=== PATIENT | female | born 1945 | race Caucasian/White ===

== ENCOUNTER 2016-10-02 04:06 | Inpatient (IN) ==
[2016-10-02] MEDS ORDERED: MAGNESIUM SULF RIDER 2 GM in PREMIX 1 EACH IV STA (04:11)
[2016-10-02] MEDS ORDERED: LEVOFLOXACIN INJ 750 MG in PREMIX 1 EACH IV STA (04:11)
[2016-10-02] MEDS ORDERED: methylPREDNISolone SOD SUC 125 MG/2 ML VIAL IV STA (04:11)
--- NOTE | 2016-10-02 04:18 | Emergency Department Note ---
Arrival - Arrival Chief Complaint: Fever ED Nursing Triage Note: C/O Fever for 24 hours and cough x 5 days. Family called EMS because pt seemed to be having trouble breathing. EMS reports that O2 sats were in the 70's upon their arrival- EMS has pt on NRB; Pt has history of COPD Mode of Arrival: Stretcher Limitations: No Limitations Source: Patient Time Seen by Provider: 10/02/16 04:11 - History of Present Illness HPI Narrative: This 71-year-old white female chronic lung patient presents with history per family of a dry cough for the last 5 days with increasing dyspnea with onset of fevers in the last 24 hours. EMS was called this morning because the patient was having difficulty breathing per the family and on arrival of EMS the patient had O2 sats in the 70 percentile range. Patient is alert and oriented 3 but because of dyspnea is a poor historian at this point time. She did present with an elevated fever to the ER with a temperature of 102.4. Currently on flush nonrebreather she is respiring comfortably. Onset (ago): day(s) (Patient presents 5 days post onset of symptoms) Date of Last Menstrual Period: PM Allergies/Adverse Reactions: Allergies Allergy/AdvReac Type Severity Reaction Status Date / Time Penicillins Allergy RASH Verified 07/17/16 21:13 phenobarbital Allergy RASH Verified 07/17/16 21:13 Home Medications: Home Medications Medication Instructions Recorded Confirmed Type ALPRAZolam [Xanax] 0.5 mg PO TID PRN 11/29/14 07/19/16 History Allopurinol [Zyloprim] 300 mg PO BEDTIME PRN 11/29/14 07/19/16 History Carisoprodol [Soma] 350 mg PO TID PRN 11/29/14 07/19/16 History Glimepiride [Amaryl] 4 mg PO DAILY W/BREAKFAST 11/29/14 07/19/16 History metFORMIN [Glucophage] 500 mg PO BID 11/29/14 07/19/16 History Carbidopa/Levodopa Cr 25-100 1 tablet PO BEDTIME 04/15/15 07/19/16 History [Sinemet Cr 25-100] Citalopram [CeleXA] 40 mg PO BEDTIME 04/15/15 07/19/16 History Ondansetron Tab [Zofran Tab] 4 mg PO Q4H PRN 04/15/15 07/19/16 History Potassium Bicarbonate/Cit AC 10 meq PO DAILY PRN 04/15/15 07/19/16 History [Effer-K 10 Meq Tablet Eff] Albuterol Inhaler [Proventil 1 puff INH Q6H PRN #1 inhaler 06/08/15 07/19/16 Rx Inhaler] Albuterol Neb [Proventil Neb] 2.5 mg RESP TX RT Q4H PRN #100 02/24/16 07/19/16 Rx nebulization solution Budesonide/Formoterol 80-4.5 1 puff INH BID 07/19/16 07/19/16 History [Symbicort 80-4.5] Cyanocobalamin (Vitamin B-12) 1,000 mcg IM DIRECTED 07/19/16 07/19/16 History [Vitamin B-12] Estradiol [Estradiol Tab] 0.5 mg PO BEDTIME 07/19/16 07/19/16 History Fesoterodine Fumarate [Toviaz] 8 mg PO DAILY 07/19/16 07/19/16 History Oxycodone HCl/Acetaminophen 1 each PO QID PRN 07/19/16 07/19/16 History [Percocet 10-325 mg Tablet] Levofloxacin Tab [Levaquin Tab] 750 mg PO DAILY #5 tablet 07/20/16 Rx guaiFENesin/DM ER 600-30 [Mucinex 1 tablet PO BID PRN #10 tablet 07/20/16 Rx Dm 600-30 MG] predniSONE [Prednisone] 40 mg PO DAILY 5 Days 07/20/16 Rx Review of System - Review of System 12 point system: reviewed and no additional remarkable complaints except as stated - Review of System Constitutional: Present: as per HPI Respiratory: Present: as per HPI Medical,Surgical,& Family Hx - Medical History Cardio: History of: Hypertension Psychological: History of: Anxiety Disorders No history of: Behavior Problems, Bipolar Disorder, Depression, Psychiatric/ Substance Abuse Tx, Schizophrenia, Violent Behavior, Psychiatric Problems Neurology: No history of: Seizures HEENT: History of: Ear Problem (hard of hearing), Eye Problem (cataract surgery) No history of: Dental Problems Endocrine: History of: Diabetes Mellitus (NIDDM) No history of: Adrenal Disease, Diabetes Mellitus (IDDM), Thyroid Disorder, Endocrine Cancer, Endocrine Problems Rheumatology: History of;: Gout Respiratory: History of: Asthma, COPD, Obstructive Sleep Apnea, Pneumonia Genitourinary: History of: Bladder Problem (incontient episodes), Recurring Urinary Tract Infections Gastrointestinal: History of: GERD, Hemorrhoids No history of: Gastrointestinal Bleed, Liver Problems, GI Problems Musculoskeletal: History of: Back/Neck Problems (chronic back pain), Musculoskeletal Problems (arthritis) No history of: Amputation Hematology: No history of: Anemia, Blood Transfusion Reaction, Bleeding Problems, Clotting Problems, Sickle Cell Disease, Hematologic Cancer, Blood Disorders Other: No history of: Anesthesia Reactions, Eczema, HIV - Surgical History Cardiac Surgeries: Patient Denies: Femoral-Popliteal Bypass Graft, Cardiac Catheterization, Cardiac Surgery, Carotid Endarterectomy, Internal Defibrillator, Vascular Access Devices Thoracic Surgeries: Patient denies;: Kidney (Renal Surgery), Lithotripsy, Nephrectomy, Organ Transplant, Lobectomy Neurologic Surgeries: Patient denies: Neurologic Surgery HEENT Surgeries: Surgical HX of: Eye Surgery (retinal surgery) Patient denies: Carotid Endarterectomy, Thyroid Surgery, Tonsilectomy & Adenoidectomy Abdominal Surgeries: Surgical HX of: Abdominal Surgery, Appendectomy, Cholecystectomy, Colonoscopy, EGD Patient denies: Gastric Bypass Surgery, Hernia Repair, Splenectomy Reproductive Surgeries: Surgical HX of;: Hysterectomy Patient denies;: Cystoscopy, Genitourinary Surgery Orthopedic Surgeries: Surgical HX of;: Orthopedic Surgery (rotator cuff, carpal tunnel release), Spinal Surgery (lumbar disc surgery) Patient denies;: Implanted Devices, Total Hip Replacement, Total Knee Replacement - Family History Family History: Reports;: Family Cancer (sister,brother), Family Diabetes ( daughter), Family Heart Disease (mother), Family Stroke (son) - Social History Smoking Status: Unknown if ever smoked Frequency of Alcohol Use: None Type of Drug Use: None Exam Physical Examination: GENERAL: Obese white female in no acute distress. HEENT: Normocephalic. No trauma. Moist mucous membranes. EOMI. PERRLA. ENT NML NECK: Supple. No adenopathy. No JVD CARDIAC: Regular. No murmurs. Heart rate 100 CHEST: Expiratory wheezes. No respiratory distress. O2 sat 100% ABDOMEN: Soft. Nontender. Active bowel sounds. EXTREMITIES: No trauma. Normal ROM. No pedal edema. SKIN: No diaphoresis. No rash. NEURO: Alert. Oriented 3 but lethargic. Motor, sensory, vibratory intact. No focal deficits. Vital Signs: Vital Signs Temperature 102.4 F H 10/02/16 04:06 Pulse Rate 105 H 10/02/16 04:36 Respiratory Rate 26 H 10/02/16 04:36 Blood Pressure 176/75 10/02/16 04:06 O2 Sat by Pulse Oximetry 99 10/02/16 04:36 Course - Reevaluation(s) Reevaluation #1: Advised patient and family of the need for hospitalization. - Consultations Consultation #1: I have discussed with the hospitalist service who will admit for further evaluation treatment. Results - Labs CBC & BMP: 10/02/16 04:34 10/02/16 04:34 Labs: I have reviewed the laboratory noted low hematocrit as well as expected elevation of blood sugar and also the notable elevated BnP. - Impressions EKG: Sinus tachycardia at 100. Normal NC interval and QRS duration. Nonspecific ST changes. No acute injury pattern noted. - Diagnostic Findings Procedure: Chest x-ray: image reviewed by me, report reviewed by me ( Cardiomegaly with right lower lobe infiltrate) Disposition Clinical Impression: Congestive heart failure, Right lower lobe pneumonia, O2 dependent COPD Case discussed with: patient, patient's family Condition: Guarded Time of Disposition: 05:39
[2016-10-02] MEDS ORDERED: ALBUTEROL/IPRATROPIUM 3 ML NEB RESP TX STA (04:27)
[2016-10-02] MEDS ORDERED: ALBUTEROL 2.5 MG/3 ML NEB RESP TX SCH (04:30)
[2016-10-02 04:49] LABS: Basophils # 0.1 10*3/uL (0.0-0.2); Basophils % 0.6 % (0.0-0.8); Eosinophils # 0.1 10*3/uL (0.0-0.87); Eosinophils % 1.1 % (0.00-10.9); Hematocrit 33.9 VOL% (35.7-47.0); Hemoglobin 11.1 GM/DL (12.0-16.0); Lymphocytes # 1.2 10*3/uL (1.4-4.0); Lymphocytes % 11.6 % (21.3-54.2); Mean Corpuscular HGB Conc 32.7 GM/DL (32-36); Mean Corpuscular Hemoglobin 28 PG (27-34); Mean Corpuscular Volume 86.3 FL (87-102); Mean Platelet Volume 9.7 FL (9.6-12.0); Monocytes # 0.9 10*3/uL (0.11-0.8); Monocytes % 8.1 % (1.7-12.7); Neutrophils # 8.1 10*3/uL (1.4-7.4); Neutrophils % 77.6 % (38.7-73.9); Platelet Count 205 T/CUMM (130-400); Red Blood Count 3.93 MC/CUMM (3.8-5.5); Red Cell Distribution Width 15.1 % (9.3-17.3); White Blood Count 10.5 T/CUMM (4-12)
[2016-10-02 04:59] LABS: INR 1.1; PT Patient Result 11.8 SECS; Partial Thromboplastin Time 32.1 SECS (0-40)
[2016-10-02] MEDS ORDERED: methylPREDNISolone SOD SUC 125 MG/2 ML VIAL ONE (05:33)
[2016-10-02] MEDS ORDERED: TERBUTALINE 1 MG/1 ML VIAL SUBCUT ONE (05:33)
[2016-10-02] MEDS ORDERED: LEVOFLOXACIN INJ 150 ML IV ONE (05:33)
[2016-10-02 05:34] LABS: Alanine Aminotransferase 16 U/L (13-56); Albumin 3.2 G/DL (3.4-5.0); Alkaline Phosphatase 39 U/L (45-117); Aspartate Amino Transferase 14 U/L (0-37); Blood Urea Nitrogen 13 MG/DL (7-18); Glucose 227 MG/DL (74-106); Osmolality,Calculated 281.7 MOS/KG (273-304); Sodium 138 MMOL/L (136-145); Total Protein 5.8 G/DL (6.4-8.3); Troponin I Only < 0.015 NG/ML (0.00-0.045)
[2016-10-02] MEDS ORDERED: MAGNESIUM SULF RIDER 50 ML IV ONE (05:34)
[2016-10-02] MEDS ORDERED: FUROSEMIDE 40 MG/4 ML VIAL IV STA (05:36)
[2016-10-02] MEDS: TERBUTALINE 1 MG/1 ML VIAL SUBCUT SCH ×2 (05:42→06:15)
[2016-10-02] MEDS ORDERED: GLUCAGON 1 MG VIAL IM PRN ×2 (06:05)
[2016-10-02] MEDS ORDERED: ACETAMINOPHEN 325 MG TABLET PO PRN (06:05)
[2016-10-02] MEDS ORDERED: DEXTROSE 50% 25 GM/50 ML VIAL IV PRN ×2 (06:05)
[2016-10-02] MEDS ORDERED: ALBUTEROL 2.5 MG/3 ML NEB RESP TX PRN ×2 (06:05→16:21)
[2016-10-02] MEDS ORDERED: ONDANSETRON 4 MG/2 ML VIAL IV PRN (06:05)
--- NOTE | 2016-10-02 06:14 | Hospitalist History & Physical ---
Assessment and Plan (1) Fever Status: Acute Current Visit: No (2) Pneumonia Status: Acute Current Visit: No Qualifiers: (3) Chronic narcotic use Status: Acute Current Visit: No (4) COPD exacerbation Status: Acute Current Visit: No (5) Oxygen dependent Status: Acute Current Visit: No (6) Diabetes mellitus Status: Chronic Current Visit: No (7) Right lower lobe pneumonia Status: Acute Assessment and plan: Our plan for this patient will be admission to our service. Will we will schedule antibiotics. Will schedule breathing treatments. Once home meds are known will continue those as appropriate. Will consult Dr. Frank for his assistance in helping with this patient. Will give some lower doses IV steroids Current Visit: No History of Present Illness Chief complaint: Shortness of breath History of present illness: Ms. Foster is a 71 year old female with past medical history significant for diabetes gout COPD chronic kidney problems fibromyalgia presents with shortness of breath. Patient seem like she was sleeping more at home a little confused. She been running some fever for couple of days. Family got concerned and called EMS. Patient was brought up here. It became apparent that patient has pneumonia. I was consulted to admit her. She sees Dr. Frank in clinic. Home Medications Medication Instructions Recorded Confirmed Type ALPRAZolam [Xanax] 0.5 mg PO TID PRN 11/29/14 07/19/16 History Allopurinol [Zyloprim] 300 mg PO BEDTIME PRN 11/29/14 07/19/16 History Carisoprodol [Soma] 350 mg PO TID PRN 11/29/14 07/19/16 History Glimepiride [Amaryl] 4 mg PO DAILY W/BREAKFAST 11/29/14 07/19/16 History metFORMIN [Glucophage] 500 mg PO BID 11/29/14 07/19/16 History Carbidopa/Levodopa Cr 25-100 1 tablet PO BEDTIME 04/15/15 07/19/16 History [Sinemet Cr 25-100] Citalopram [CeleXA] 40 mg PO BEDTIME 04/15/15 07/19/16 History Ondansetron Tab [Zofran Tab] 4 mg PO Q4H PRN 04/15/15 07/19/16 History Potassium Bicarbonate/Cit AC 10 meq PO DAILY PRN 04/15/15 07/19/16 History [Effer-K 10 Meq Tablet Eff] Albuterol Inhaler [Proventil 1 puff INH Q6H PRN #1 inhaler 06/08/15 07/19/16 Rx Inhaler] Albuterol Neb [Proventil Neb] 2.5 mg RESP TX RT Q4H PRN #100 02/24/16 07/19/16 Rx nebulization solution Budesonide/Formoterol 80-4.5 1 puff INH BID 07/19/16 07/19/16 History [Symbicort 80-4.5] Cyanocobalamin (Vitamin B-12) 1,000 mcg IM DIRECTED 07/19/16 07/19/16 History [Vitamin B-12] Estradiol [Estradiol Tab] 0.5 mg PO BEDTIME 07/19/16 07/19/16 History Fesoterodine Fumarate [Toviaz] 8 mg PO DAILY 07/19/16 07/19/16 History Oxycodone HCl/Acetaminophen 1 each PO QID PRN 07/19/16 07/19/16 History [Percocet 10-325 mg Tablet] Levofloxacin Tab [Levaquin Tab] 750 mg PO DAILY #5 tablet 07/20/16 Rx guaiFENesin/DM ER 600-30 [Mucinex 1 tablet PO BID PRN #10 tablet 07/20/16 Rx Dm 600-30 MG] predniSONE [Prednisone] 40 mg PO DAILY 5 Days 07/20/16 Rx Allergies Allergy/AdvReac Type Severity Reaction Status Date / Time Penicillins Allergy RASH Verified 07/17/16 21:13 phenobarbital Allergy RASH Verified 07/17/16 21:13 Medical,Surgical,& Family Hx - Medical History Cardio: History of: Hypertension Psychological: History of: Anxiety Disorders No history of: Behavior Problems, Bipolar Disorder, Depression, Psychiatric/ Substance Abuse Tx, Schizophrenia, Violent Behavior, Psychiatric Problems Neurology: No history of: Seizures HEENT: History of: Ear Problem (hard of hearing), Eye Problem (cataract surgery) No history of: Dental Problems Endocrine: History of: Diabetes Mellitus (NIDDM) No history of: Adrenal Disease, Diabetes Mellitus (IDDM), Thyroid Disorder, Endocrine Cancer, Endocrine Problems Rheumatology: History of;: Gout Respiratory: History of: Asthma, COPD, Obstructive Sleep Apnea, Pneumonia Genitourinary: History of: Bladder Problem (incontient episodes), Recurring Urinary Tract Infections Gastrointestinal: History of: GERD, Hemorrhoids No history of: Gastrointestinal Bleed, Liver Problems, GI Problems Musculoskeletal: History of: Back/Neck Problems (chronic back pain), Musculoskeletal Problems (arthritis) No history of: Amputation Hematology: No history of: Anemia, Blood Transfusion Reaction, Bleeding Problems, Clotting Problems, Sickle Cell Disease, Hematologic Cancer, Blood Disorders Other: No history of: Anesthesia Reactions, Eczema, HIV - Surgical History Cardiac Surgeries: Patient Denies: Femoral-Popliteal Bypass Graft, Cardiac Catheterization, Cardiac Surgery, Carotid Endarterectomy, Internal Defibrillator, Vascular Access Devices Thoracic Surgeries: Patient denies;: Kidney (Renal Surgery), Lithotripsy, Nephrectomy, Organ Transplant, Lobectomy Neurologic Surgeries: Patient denies: Neurologic Surgery HEENT Surgeries: Surgical HX of: Eye Surgery (retinal surgery) Patient denies: Carotid Endarterectomy, Thyroid Surgery, Tonsilectomy & Adenoidectomy Abdominal Surgeries: Surgical HX of: Abdominal Surgery, Appendectomy, Cholecystectomy, Colonoscopy, EGD Patient denies: Gastric Bypass Surgery, Hernia Repair, Splenectomy Reproductive Surgeries: Surgical HX of;: Hysterectomy Patient denies;: Cystoscopy, Genitourinary Surgery Orthopedic Surgeries: Surgical HX of;: Orthopedic Surgery (rotator cuff, carpal tunnel release), Spinal Surgery (lumbar disc surgery) Patient denies;: Implanted Devices, Total Hip Replacement, Total Knee Replacement - Family History Family History: Reports;: Family Cancer (sister,brother), Family Diabetes ( daughter), Family Heart Disease (mother), Family Stroke (son) - Social History Smoking Status: Unknown if ever smoked Frequency of Alcohol Use: None Type of Drug Use: None 12 point system: reviewed and no additional remarkable complaints except as stated Exam - Constitutional Vitals: Period Temp Pulse Resp BP Sys/Melendez Pulse Ox Last 24 Hr 102.4 F 102-105 24-32 176/75 98-100 General appearance: morbidly obese - Head Head exam: Present: normal inspection - Eye Eye exam: Present: EOMI Pupils: Present: LELIA - ENT ENT exam: Present: normal exam - Neck Neck exam: Present: normal inspection - Respiratory Respiratory exam: Present: wheezes - Cardiovascular Cardiovascular exam: Present: regular rate and rhythm - GI/Abdominal GI/Abdominal exam: Present: normal bowel sounds - Extremities Exam Extremities exam: Present: normal inspection - Back Exam Back exam: Present: normal inspection - Neurological Exam Neurological exam: Present: alert, oriented X3 - Psychiatric Psychiatric exam: Present: normal affect Results - Labs CBC & BMP: 10/02/16 04:34 10/02/16 04:34
[2016-10-02] MEDS ORDERED: FUROSEMIDE 100 MG/10 ML VIAL ONE (06:48)
[2016-10-02 07:00] LABS: Apearance,Urine CLEAR (Clear); Bilirubin,Urine Negative (Negative); Blood, Urine Negative (Negative); Glucose,Urine (UA) 50 mg/dL (Negative); Ketones,Urine Negative (Negative); Mucus,Urine Occasional /LPF (Occasional); Nitrite,Urine Negative (Negative); Protein,Urine 30 MG/DL; RBC,Urine <1 /HPF (0-4); Squamous Epithelial Cell,Urine Occasional /HPF (0-10); Urine Color Yellow (Yellow); Urine Specific Gravity 1.016 (1.001-1.035); Urine Urobilinogen < 2.0 EU/DL (0.2-1.0); WBC,Urine 1 /HPF (0-6)
[2016-10-02 07:21] LABS: Barbiturates Screen,Urine Negative (Negative); Benzodiazepines Screen,Urine Negative (Negative); Cannabinoid Screen,Urine Negative (Negative); Opiate Screen,Urine Positive (Negative); Phencyclidine Screen,Urine Negative (Negative)
[2016-10-02] MEDS: ALBUTEROL/IPRATROPIUM 3 ML NEB RESP TX SCH ×3 (07:37→19:05)
--- NOTE | 2016-10-02 07:41 | XRay Report ---
Referring Physician: Jose Alfredo Nunn Exam: XR chest 1V portable Date: October 02, 2016 at 4:16 AM Reason: Shortness of breath Comparison: Chest 2 views July 20, 2016 Findings: The cardiac silhouette is upper normal in size, and there is prominent calcified plaque at the aortic arch. There are scattered opacities within both lower lung zones. This likely represents atelectasis, but there could also be mild pulmonary edema or pneumonia. No pneumothorax is identified, but there may be minimal left pleural fluid. No acute osseous process is seen. Note is made of chronic deformity of the clavicles, which could be related to previous surgery and/or trauma. There are also remote left rib fractures. Impression: There are scattered opacities within both lower lung zones. This likely represents atelectasis, but there could also be mild pulmonary edema or pneumonia. PROCEDURE INTERPRETED AT [facility] DEPARTMENT OF RADIOLOGY Final Report Signed by: Dr. Doreen Sorenson
--- NOTE | 2016-10-02 08:10 | EKG Report ---
Stationary ECG Study [facility] ER Test Date: 10/02/2016 4:12:18 AM Pat Name: ABDIRIZAK BOSE Department: Room: 521 Gender: F Social And Human Services Assistant: TRENTON : 1945 Requested by: Jose Alfredo Portillo Order Number: [id number] Reading MD: TAYLOR WILEY Intervals [place] Rate: 104 P: 52 PA: 157 QRS: -74 QRSD: 82 T: 67 QT: 313 QTc: 374 Interpretive Statements SINUS TACHYCARDIA@104BPM PATTERN CONSISTENT WITH PULMONARY DISEASE LEFT ANTERIOR FASCICULAR BLOCK NST Electronically Signed On 10-02-16 14:31:40 CDT by TAYLOR WILEY [email or web address]
[2016-10-02] MEDS: PANTOPRAZOLE 40 MG TABLET PO SCH (08:53)
[2016-10-02] MEDS: INSULIN REGULAR 100 UNIT/ML SUBCUT SCH ×4 (08:54→20:43)
[2016-10-02] MEDS: ENOXAPARIN 40 MG/0.4 ML SYRINGE SUBCUT SCH (08:54)
--- NOTE | 2016-10-02 10:36 | Event Note ---
This patient was admitted area this morning by my colleagues. I am taken over the care at this point. There is no charge for this assessment. 71-year-old lady admitted to the hospital with difficulty breathing history of COPD and chronic kidney problems fibromyalgia. Came in with his shortness of breath chest x-ray suggested pulmonary edema but could not rule out pneumonia. Patient was given Lasix with a significant urine output her breathing is a lot better now swelling is in the legs also better On examination she is awake alert oriented 3 no acute distress mental status is normal. No JVD lungs are clear to auscultation heart tones are normal no gallops no murmur. Abdomen assessment is unremarkable. Extremities shows reduced swelling there is some differential warmth in the lower part of the legs but no obvious cellulitis. Had a small laceration on the medial malleolus which she she suffered at home. He came in using levofloxacin for indications of them not sure of. In the hospital this has been continued. My index of suspicion for lower respiratory infection is light at this point. Therefore just levofloxacin alone not add anything else. But be aggressive with diuresis. Talked to her that she needs to have compression stockings at home to reduce the edema because the dictates of Bisno's syndrome persistent edema of his lower extremities definitely encourage cellulitis. Patient will be seen again tomorrow. As mentioned above no charge for this assessment.
[2016-10-02] MEDS: methylPREDNISolone SOD SUC 40 MG/1 ML VIAL IV SCH ×3 (15:30→21:21)
[2016-10-02] MEDS ORDERED: ALLOPURINOL 300 MG TABLET PO PRN (16:21)
[2016-10-02] MEDS ORDERED: CARISOPRODOL 350 MG TABLET PO PRN (16:21)
[2016-10-02] MEDS ORDERED: NON-FORMULARY MEDICATION (Cyanocobalamin (Vitamin B-12) [Vitamin B-12] 1,000 MCG) IM SCH (16:30)
[2016-10-02] MEDS: CITALOPRAM 40 MG TABLET PO SCH (20:42)
[2016-10-02] MEDS: CARBIDOPA/LEVODOPA CR 25-100 MG TABLET PO SCH ×2 (20:43→20:50)
[2016-10-02] MEDS: BUDESONIDE/FORMOTEROL 80-4.5 INHALER 6.9 GM INH SCH (20:43)
[2016-10-02] MEDS: ALPRAZolam 0.5 MG TABLET PO PRN (20:43)
[2016-10-03] MEDS: ALBUTEROL/IPRATROPIUM 3 ML NEB RESP TX SCH ×4 (00:20→19:25)
[2016-10-03] MEDS: methylPREDNISolone SOD SUC 40 MG/1 ML VIAL IV SCH ×3 (05:13→21:34)
[2016-10-03] MEDS: LEVOFLOXACIN INJ 750 MG in PREMIX 1 EACH IV SCH (05:13)
[2016-10-03 06:23] LABS: Basophils % 0.1 % (0.0-0.8); Hematocrit 31.3 VOL% (35.7-47.0); Hemoglobin 10.5 GM/DL (12.0-16.0); Immature Granulocytes % 1.4 %; Immature Granulocytes Absolute 0.13 #; Lymphocytes # 0.6 10*3/uL (1.4-4.0); Lymphocytes % 6.5 % (21.3-54.2); Mean Corpuscular HGB Conc 33.5 GM/DL (32-36); Mean Corpuscular Hemoglobin 28 PG (27-34); Mean Corpuscular Volume 83.7 FL (87-102); Mean Platelet Volume 10.4 FL (9.6-12.0); Monocytes # 0.3 10*3/uL (0.11-0.8); Monocytes % 3.7 % (1.7-12.7); Neutrophils % 88.3 % (38.7-73.9); Platelet Count 209 T/CUMM (130-400); Red Blood Count 3.74 MC/CUMM (3.8-5.5); Red Cell Distribution Width 14.7 % (9.3-17.3); White Blood Count 9.1 T/CUMM (4-12)
[2016-10-03 06:58] LABS: Albumin 2.8 G/DL (3.4-5.0); Bilirubin,Total 0.4 MG/DL (0.2-1.0); Calcium 8.1 MG/DL (8.5-10.1); Osmolality,Calculated 296.3 MOS/KG (273-304); Potassium 3.3 MMOL/L (3.5-5.1); Total Protein 5.6 G/DL (6.4-8.3)
[2016-10-03] MEDS ORDERED: POTASSIUM BICARB EFFERVESCENT 25 MEQ TABLET PO PRN (07:00)
[2016-10-03] MEDS ORDERED: NON-FORMULARY MEDICATION (Cyanocobalamin (Vitamin B-12) [Vitamin B-12] 1,000 MCG) IM SCH (09:00)
[2016-10-03] MEDS: INSULIN REGULAR 100 UNIT/ML SUBCUT SCH ×4 (09:09→20:43)
[2016-10-03] MEDS: GLIMEPIRIDE 4 MG TABLET PO SCH (09:10)
[2016-10-03] MEDS: FESOTERODINE 4 MG TABLET PO SCH (09:10)
[2016-10-03] MEDS: PANTOPRAZOLE 40 MG TABLET PO SCH (09:10)
[2016-10-03] MEDS: ENOXAPARIN 40 MG/0.4 ML SYRINGE SUBCUT SCH (09:10)
[2016-10-03] MEDS: BUDESONIDE/FORMOTEROL 80-4.5 INHALER 6.9 GM INH SCH ×2 (09:11→20:37)
--- NOTE | 2016-10-03 09:47 | Pulmonology Consult Note ---
Assessment and Plan (1) Pneumonia Status: Acute Assessment and plan: Has a patchy bilateral interstitial pneumonitis. May be atypical. Will get a CT scan to get a better view of this as it is not very impressive on plain chest x-ray. Current Visit: No (2) Severe persistent chronic asthma with acute exacerbation Status: Acute Assessment and plan: She is continuing to use her controller inhalers and bronchodilators. Needs brief burst of steroids. Glucoses will likely be difficult to control. Current Visit: No (3) Diabetes mellitus Status: Chronic Assessment and plan: Glucoses were elevated. Getting steroids. Adjust sliding scale. Current Visit: No History of Present Illness Chief complaint: Cough congestion fever History of present illness: Ms. Foster is a 71 year old female who came in early yesterday morning. She was brought in by ambulance after the family had called him about 2:00 in the morning. The patient does not remember the details. Apparently she had decreased level of consciousness. She had a fever that was said to be as high as 104 outside the hospital. Also had a low oxygen saturation according to the patient's recollection of the ambulance personnel. She came in with fever here of 102.4. Chest x-ray shows some patchy infiltrates. She has been placed on antibiotics and oxygen and she is doing better. The lowest oxygen saturation I see here was 86%. She has been on oxygen since arrival however. She is a non- smoker. She has a history of moderate persistent asthma. She has worked in [employer] all her life and may well have byssanosis. At present she is wearing facemask oxygen her oxygen saturations are acceptable. Her mental status is improved. She also has diabetes and her blood sugars are running around 300. Home Medications Medication Instructions Recorded Confirmed Type ALPRAZolam [Xanax] 0.5 mg PO TID PRN 11/29/14 10/02/16 History Allopurinol [Zyloprim] 300 mg PO BEDTIME PRN 11/29/14 10/02/16 History Carisoprodol [Soma] 350 mg PO TID PRN 11/29/14 10/02/16 History Glimepiride [Amaryl] 4 mg PO DAILY W/BREAKFAST 11/29/14 10/02/16 History Carbidopa/Levodopa Cr 25-100 1 tablet PO BEDTIME 04/15/15 10/02/16 History [Sinemet Cr 25-100] Citalopram [CeleXA] 40 mg PO BEDTIME 04/15/15 10/02/16 History Ondansetron Tab [Zofran Tab] 4 mg PO Q4H PRN 04/15/15 10/02/16 History Potassium Bicarbonate/Cit AC 10 meq PO DAILY PRN 04/15/15 10/02/16 History [Effer-K 10 Meq Tablet Eff] Albuterol Neb [Proventil Neb] 2.5 mg RESP TX RT Q4H PRN #100 02/24/16 10/02/16 Rx nebulization solution Budesonide/Formoterol 80-4.5 1 puff INH BID 07/19/16 10/02/16 History [Symbicort 80-4.5] Cyanocobalamin (Vitamin B-12) 1,000 mcg IM DIRECTED 07/19/16 10/02/16 History [Vitamin B-12] Fesoterodine Fumarate [Toviaz] 8 mg PO DAILY 07/19/16 10/02/16 History Hydrocodone Bit/Homatrop Me-Br 1 tablet PO Q6H PRN 10/02/16 10/02/16 History [Hydrocodone/Homatropine 5-1.5 mg Tab] Mometasone/Formoterol 200-5 2 puff INH BID 10/02/16 10/02/16 History [Dulera 200-5] Polyethylene Glycol Powder 17 gm PO DAILY 10/02/16 10/02/16 History [Miralax] Allergies Allergy/AdvReac Type Severity Reaction Status Date / Time Penicillins Allergy RASH Verified 07/17/16 21:13 phenobarbital Allergy RASH Verified 07/17/16 21:13 12 point system: reviewed and no additional remarkable complaints except as stated - Constitutional Constitutional: Present: fever(s) - Cardiovascular Cardiovascular: Present: dyspnea, dyspnea on exertion - Respiratory Respiratory: Present: cough, dyspnea, dyspnea on exertion, change in phlegm color - Genitourinary Genitourinary: Present: urinary frequency - Musculoskeletal Musculoskeletal: Present: arthralgias, myalgias - Neurological Neurological: Present: confusion Exam (Pulmonay) H&P - Constitutional Vitals: Period Temp Pulse Resp BP Sys/Melendez Pulse Ox Last 24 Hr 97.3 F-98.2 F 62-100 16-20 108-148/53-75 85-99 Exam: Vital signs normal. Had fever to 102.4 last night. Pupils react to light throat is clear. Patient does answer questions and makes sense. Neck supple no bruits. Chest reveals some expiratory rhonchi bilaterally. She does have some wheezing. Heart normal rate and rhythm no murmurs no rubs no gallops. Abdomen soft nontender no masses. Extremities no clubbing cyanosis. Trace of edema. Calves nontender. Medical,Surgical,& Family Hx - Medical History Cardio: History of: Hypertension Psychological: History of: Anxiety Disorders No history of: Behavior Problems, Bipolar Disorder, Depression, Psychiatric/ Substance Abuse Tx, Schizophrenia, Violent Behavior, Psychiatric Problems Neurology: No history of: Seizures HEENT: History of: Ear Problem (hard of hearing), Eye Problem (cataract surgery) No history of: Dental Problems Endocrine: History of: Diabetes Mellitus (NIDDM) No history of: Adrenal Disease, Diabetes Mellitus (IDDM), Thyroid Disorder, Endocrine Cancer, Endocrine Problems Rheumatology: History of;: Gout Respiratory: History of: Asthma, Bronchitis, COPD, Obstructive Sleep Apnea, Pneumonia Genitourinary: History of: Bladder Problem (incontient episodes), Recurring Urinary Tract Infections Gastrointestinal: History of: GERD, Hemorrhoids No history of: Gastrointestinal Bleed, Liver Problems, GI Problems Musculoskeletal: History of: Back/Neck Problems (chronic back pain), Musculoskeletal Problems (arthritis) No history of: Amputation Hematology: No history of: Anemia, Blood Transfusion Reaction, Bleeding Problems, Clotting Problems, Sickle Cell Disease, Hematologic Cancer, Blood Disorders Other: No history of: Anesthesia Reactions, Eczema, HIV - Surgical History Cardiac Surgeries: Patient Denies: Femoral-Popliteal Bypass Graft, Cardiac Catheterization, Cardiac Surgery, Carotid Endarterectomy, Internal Defibrillator, Vascular Access Devices Thoracic Surgeries: Patient denies;: Kidney (Renal Surgery), Lithotripsy, Nephrectomy, Organ Transplant, Lobectomy Neurologic Surgeries: Patient denies: Neurologic Surgery HEENT Surgeries: Surgical HX of: Eye Surgery (retinal surgery) Patient denies: Carotid Endarterectomy, Thyroid Surgery, Tonsilectomy & Adenoidectomy Abdominal Surgeries: Surgical HX of: Abdominal Surgery, Appendectomy, Cholecystectomy, Colonoscopy, EGD Patient denies: Gastric Bypass Surgery, Hernia Repair, Splenectomy Reproductive Surgeries: Surgical HX of;: Hysterectomy Patient denies;: Cystoscopy, Genitourinary Surgery Orthopedic Surgeries: Surgical HX of;: Orthopedic Surgery (rotator cuff, carpal tunnel release), Spinal Surgery (lumbar disc surgery) Patient denies;: Implanted Devices, Total Hip Replacement, Total Knee Replacement - Family History Family History: Reports;: Family Cancer (sister,brother), Family Diabetes ( daughter), Family Heart Disease (mother), Family Stroke (son) Denies;: Family Anesthesia Reaction, Family Hematology, Family Hypertension, Family Psychiatric Problems, Additional Family History - Social History Smoking Status: Unknown if ever smoked Frequency of Alcohol Use: None Type of Drug Use: None Results - Labs CBC & BMP: 10/03/16 04:42 10/03/16 04:42 Lab Results: I have reviewed the past 24 hour labs - Diagnostic Findings Procedure: Chest x-ray: image reviewed by me (Patchy interstitial infiltrates.)
[2016-10-03] MEDS ORDERED: CYANOCOBALAMIN 1000 MCG/1 ML VIAL IM SCH (12:00)
[2016-10-03 12:09] LABS: ABG Base Excess 5.4 MMOL/L (-2.5-2.5); ABG HCO3 29.2 MMOL/L (20-26); ABG Oxygen Saturation 96.2 % (95-100); ABG PCO2 39.4 MM HG (35-48); ABG PH 7.478 (7.35-7.45); ABG PO2 74.4 MM HG (80-95); ABG TCO2 26.1 MMOL/L (23-27); Allen Test Positive
--- NOTE | 2016-10-03 12:19 | Hospitalist Progress Note ---
Assessment and Plan (1) Severe persistent chronic asthma with acute exacerbation Status: Acute Assessment and plan: Continue aggressive beta 2 agonists and ipratropium bromide and steroids systemically. Patient is improved significantly on this issue. Current Visit: No (2) Acute respiratory failure with hypoxia Status: Acute Assessment and plan: After diuresis patient's breathing is better she has no acute distress. Saturating above 93%. Continue current management Current Visit: No (3) Right lower lobe pneumonia Status: Acute Assessment and plan: Continue antibiotics with levofloxacin. And is improving Current Visit: No (4) Acute pulmonary edema Status: Acute Assessment and plan: This is responded to Lasix. She had pulled back on loop diuresis supplement potassium and check magnesium. Current Visit: Yes Hospitalist: Subjective Interval history: Patient has been seen interviewed and examined and chart has been reviewed she offers no new complaints today . This is a 71-year-old lady was admitted to the hospital with a history of fevers cough and change in mental status. 6 at admission to show some patchy infiltrates. He also did have hypoxemia at admission. There was suspicion of possible pulmonary edema associated with the clinical syndrome and was given large doses of diuresis with significant loss of edema of the lower extremities. Does have history of chronic edema. Is also been seen by pulmonology here I will repair tension to pulmonology recommendation. Exam - Constitutional Vitals: Period Temp Pulse Resp BP Sys/Melendez Pulse Ox Last 24 Hr 97.3 F-98.8 F 62-100 16-20 108-144/53-69 85-99 General appearance: morbidly obese - Head Head exam: Present: normal inspection, normocephalic - Eye Eye exam: Present: EOMI Pupils: Present: LELIA - ENT ENT exam: Present: normal exam, normal oropharynx - Neck Neck exam: Present: normal inspection - Respiratory Respiratory exam: Present: clear to auscultation bilaterally - Cardiovascular Cardiovascular exam: Present: regular rate and rhythm - GI/Abdominal GI/Abdominal exam: Present: normal bowel sounds, soft - Extremities Exam Extremities exam: Present: normal inspection, full ROM - Back Exam Back exam: Present: normal inspection - Neurological Exam Neurological exam: Present: alert, oriented X3, CN II-XII intact - Psychiatric Psychiatric exam: Present: normal affect, normal mood - Skin Skin exam: Present: normal color, warm, dry Results - Labs CBC & BMP: 10/03/16 04:42 10/03/16 04:42 Lab Results: I have reviewed the past 24 hour labs (Noted hypokalemia with check magnesium. See that Dr. Frank has plans to do a CT scan of the chest will for better resolution of her pulmonary pathology.)
--- NOTE | 2016-10-03 13:42 | CT Report ---
Referring physician: Franky Juárez MD EXAM: CT chest without contrast DATE: October 03, 2016 COMPARISON: CT chest high-resolution February 23, 2016, CT chest with contrast September 29, 2013 REASON: Recurrent pneumonia TECHNIQUE: Axial images of the chest were obtained without the use of IV contrast. Coronal and sagittal reformatted images were also provided. Total DLP is 552.1 mGy*cm. 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 The ascending thoracic aorta is mildly prominent, measuring 4.0 cm in diameter. The heart is normal in size. There is minimal pericardial fluid, which is likely physiologic. The central pulmonary arteries are upper normal in size. Lymph nodes: No suspicious mediastinal, hilar or axillary adenopathy is identified. Other mediastinum: Unremarkable. Lungs: There is mild tubular bronchiectasis and bronchial wall thickening within the right middle lobe, similar to previous studies. A prominent bandlike/wedge-shaped opacity is again seen within the left lower lobe. Similar opacities were seen within the left lower lobe and left upper lobe on the prior study of February 23, 2016. This likely represents atelectasis, but pneumonia or a chronic inflammatory process is not excluded. Underlying neoplasm cannot be excluded, and follow-up is recommended. There are also minimal scattered opacities within the right middle lobe, right lower lobe, left lower lobe and within the lingula. This is most consistent with atelectasis and possibly scarring. No pneumothorax is identified. There is trace bilateral pleural fluid. Bones: There is a remote fracture of the left clavicle and remote rib fractures bilaterally. Mild degenerative change is also seen at the thoracic spine. No acute osseous process is identified. Chest wall: Unremarkable. Upper abdomen: The patient is status post cholecystectomy. There is also minimal ascites adjacent to the spleen. IMPRESSION: 1. There is a prominent bandlike/wedge-shaped opacity within the left lower lobe, extending from the left hilum to the pleural surface. This likely represents atelectasis, but pneumonia or a chronic inflammatory process is not excluded. Similar opacities were seen within the left lower lobe and left upper lobe on the previous high-resolution CT performed on February 23, 2016. An underlying neoplastic process cannot be excluded within the left lower lobe, and follow-up is recommended. 2. Minimal scattered opacities are seen within both lower lobes, within the right middle lobe and within the lingula. This likely represents atelectasis and possibly scarring. 3. Mild bronchiectasis and bronchial wall thickening within the right middle lobe. 3. Stable mild aneurysmal dilatation of the ascending aorta. 4. Trace bilateral pleural fluid and minimal ascites adjacent to the spleen. The CT exam was performed using one or more of the following dose reduction techniques: Automated exposure control and adjustment of the mA and/or kV according to patient size. PROCEDURE INTERPRETED AT [facility] DEPARTMENT OF RADIOLOGY Final Report Signed by: Dr. Doreen Sorenson
[2016-10-03] MEDS: HYDROcodone/HOMATROPINE 5 ML UDCUP PO PRN (17:43)
--- NOTE | 2016-10-03 19:42 | ECHO Report ---
Alana Foster Exam Date: 10/03/2016 13:57 Referring Physician: Technologist: Monalisa Benitez Age: 71 Ht (in): 62 Wt (lb): 230 Gender: F Exam Location: [facility] Echo Indications: pneumonia, chronic asthma, diabetes BP: 131 / 66 HR: 80 Rhythm: Sinus Technical Quality: IMPRESSIONS Normal left ventricular size, with mild concentric hypertrophy, with normal systolic function. Estimated left ventricular ejection fraction 60%. Grade 1 diastolic dysfunction. Mild left atrial enlargement. Mild mitral valve sclerosis. Trace mitral valve regurgitation. Aortic valve sclerosis without stenosis or regurgitation. Mild pulmonary valve regurgitation. Normal size aortic root. The proximal descending aorta is borderline dilated, a 3.8 cm in diameter. MEASUREMENTS (Male / Female) Normal Values 2D ECHO LV Diastolic Diameter PLAX 3.4 cm 4.2 - 5.9 / 3.9 - 5.3 cm LV Systolic Diameter PLAX 2.6 cm LV Fractional Shortening PLAX 24.6 % IVS Diastolic Thickness 1.6 cm 0.6 - 1.0 / 0.6 - 0.9 cm LVPW Diastolic Thickness 1.2 cm 0.6 - 1.0 / 0.6 - 0.9 cm RV Internal Dim ED PLAX 3.0 cm Aortic Root Diameter 3.1 cm LA Systolic Diameter LX 3.4 cm 3.0 - 4.0 / 2.7 - 3.8 cm DOPPLER TR Peak Velocity 165.0 cm/s TR Peak Gradient 10.9 mmHg FINDINGS Left Ventricle Normal left ventricular size, with mild concentric hypertrophy, with normal systolic function. Estimated left ventricular ejection fraction 60%. Grade 1 diastolic dysfunction. Right Ventricle Normal right ventricular size. Right Atrium Normal right atrial size. Left Atrium Mild left atrial enlargement. Mitral Valve Mild mitral valve sclerosis. Trace mitral valve regurgitation. Aortic Valve Aortic valve sclerosis without stenosis or regurgitation. Tricuspid Valve Morphologically normal tricuspid valve. Trace - mild tricuspid valve regurgitation. Tricuspid regurgitation velocities suggest a PAP of 21 mmHg. Pulmonic Valve Morphologically normal pulmonic valve. Mild pulmonary valve regurgitation. Pericardium No pericardial effusion. Aorta Normal size aortic root. The proximal descending aorta is borderline dilated, a 3.8 cm in diameter. Tomi Yost (Electronically Signed) Final Date: 03 Oct 2016 19:40
[2016-10-03] MEDS: CITALOPRAM 40 MG TABLET PO SCH (20:38)
[2016-10-03] MEDS: CARBIDOPA/LEVODOPA CR 25-100 MG TABLET PO SCH (20:39)
[2016-10-03] MEDS: ALPRAZolam 0.5 MG TABLET PO PRN (20:39)
[2016-10-03] MEDS ORDERED: POLYETHYLENE GLYCOL POWDER 17 GM PACK PO PRN (21:53)
[2016-10-04] MEDS: ALBUTEROL/IPRATROPIUM 3 ML NEB RESP TX SCH ×4 (01:00→18:55)
[2016-10-04] MEDS: methylPREDNISolone SOD SUC 40 MG/1 ML VIAL IV SCH ×3 (06:05→23:01)
[2016-10-04] MEDS: LEVOFLOXACIN INJ 750 MG in PREMIX 1 EACH IV SCH (06:05)
[2016-10-04] MEDS: INSULIN REGULAR 100 UNIT/ML SUBCUT SCH ×4 (07:30→20:26)
[2016-10-04 09:26] LABS: PT Patient Result 11.1 SECS
[2016-10-04] MEDS: PANTOPRAZOLE 40 MG TABLET PO SCH (10:41)
[2016-10-04] MEDS: GLIMEPIRIDE 4 MG TABLET PO SCH (10:41)
[2016-10-04] MEDS: ENOXAPARIN 40 MG/0.4 ML SYRINGE SUBCUT SCH (10:41)
[2016-10-04] MEDS: BUDESONIDE/FORMOTEROL 80-4.5 INHALER 6.9 GM INH SCH ×2 (10:41→20:27)
[2016-10-04] MEDS: FESOTERODINE 4 MG TABLET PO SCH (10:41)
[2016-10-04] MEDS: HYDROcodone/HOMATROPINE 5 ML UDCUP PO PRN (10:51)
--- NOTE | 2016-10-04 12:16 | Pulmonology Progress Note ---
Pulmonary - PN: Subj Interval history: This 71-year-old white female is in with recurrent pneumonia and exacerbation of asthma. CT scan shows persistent left lower lobe atelectatic infiltrate posteriorly. This was seen in February 2016 as well and looks about the same. She had bronchoscopy that was negative then. I think we need to repeat her bronchoscopy and make sure she does not have any obstruction in the posterior basilar segment left lower lobe. Also will get cultures. She is feeling a little better and is not hypoxemic at present. In addition she had an echocardiogram done yesterday that was normal. Exam (Progress Note) - Constitutional Vitals: Period Temp Pulse Resp BP Sys/Melendez Pulse Ox Last 24 Hr 97.5 F-98.8 F 73-95 14-20 128-156/62-86 93-97 Exam: Patient is alert oriented vital signs normal. No fever. Pupils react to light. Throat is clear. Neck supple no bruits. Chest shows a few rhonchi of the left base otherwise clear. Heart normal rate and rhythm no murmurs. Abdomen soft nontender no masses. Extremities no clubbing cyanosis edema. Calves nontender. Results - Labs CBC & BMP: 10/03/16 04:42 10/03/16 04:42 Lab Results: I have reviewed the past 24 hour labs - Diagnostic Findings Procedure: CT - chest: image reviewed by me (Atelectatic infiltrate posteriorly in the left lower lobe.) Assessment and Plan (1) Pneumonia Status: Acute Assessment and plan: Has a patchy bilateral interstitial pneumonitis. May be atypical. Will get a CT scan to get a better view of this as it is not very impressive on plain chest x-ray. 10/04/2016 CT does show some atelectatic infiltrate at the left base. It does appear that she has recurrent pneumonia. I am concerned that this is the same area that she had it before, so we will do a bronchoscopy to evaluate her airway. Also will get cultures. Current Visit: No (2) Severe persistent chronic asthma with acute exacerbation Status: Acute Assessment and plan: She is continuing to use her controller inhalers and bronchodilators. Needs brief burst of steroids. Glucoses will likely be difficult to control. 10/04/2016 asthma seems to be under better control. No active wheezing. Current Visit: No (3) Diabetes mellitus Status: Chronic Assessment and plan: Glucoses were elevated. Getting steroids. Adjust sliding scale. 10/04/2016 blood sugars were running around 300. Increase sliding scale. Current Visit: No
--- NOTE | 2016-10-04 12:24 | Hospitalist Progress Note ---
Assessment and Plan (1) Severe persistent chronic asthma with acute exacerbation Status: Acute Assessment and plan: Continue aggressive beta 2 agonists and ipratropium bromide and steroids systemically. Patient is improved significantly on this issue. Current Visit: No (2) Acute respiratory failure with hypoxia Status: Acute Assessment and plan: After diuresis patient's breathing is better she has no acute distress. Saturating above 93%. Continue current management Current Visit: No (3) Right lower lobe pneumonia Status: Acute Assessment and plan: Continue antibiotics with levofloxacin. And is improving. CT scan of the chest was done yesterday that reveals a wedge-shaped density on the left lower lobe. There is possibility of this being atelectasis secondary to endobronchial obstruction. Patient is planned for endoscopy tomorrow. Current Visit: No (4) Acute pulmonary edema Status: Acute Assessment and plan: Resolved. Current Visit: Yes Hospitalist: Subjective Interval history: Patient has been seen interviewed and examined and chart has been reviewed. Attention paid to the notes from pulmonary services. Patient does have a wedge- shaped infiltrate on the left lower lobe. This is thought to be either atelectasis or fibrosis. There is considerable possibility of post obstructive density (atelectasis). It could also represent an old scar from possibly an old pulmonary embolus given the fact that the scar appears the same on previous imagings. She is not in respiratory distress at this point. Because of concerns of possibility of an obstruction patient has been planned for bronchoscopy tomorrow. Exam - Constitutional Vitals: Period Temp Pulse Resp BP Sys/Melendez Pulse Ox Last 24 Hr 97.5 F-98.8 F 73-95 14-20 128-156/62-86 89-97 General appearance: normal weight - Head Head exam: Present: normal inspection, normocephalic, atraumatic - Eye Eye exam: Present: EOMI Pupils: Present: LELIA - ENT ENT exam: Present: normal exam, normal oropharynx - Neck Neck exam: Present: normal inspection, other (Supple neck no JVD midline trachea no regional adenopathy) - Respiratory Respiratory exam: Present: clear to auscultation bilaterally - Cardiovascular Cardiovascular exam: Present: regular rate and rhythm - GI/Abdominal GI/Abdominal exam: Present: normal bowel sounds, soft - Extremities Exam Extremities exam: Present: full ROM - Back Exam Back exam: Present: normal inspection - Neurological Exam Neurological exam: Present: alert, oriented X3, CN II-XII intact - Psychiatric Psychiatric exam: Present: normal affect, normal mood - Skin Skin exam: Present: normal color, warm, dry Results - Labs CBC & BMP: 10/03/16 04:42 10/03/16 04:42 Lab Results: I have reviewed the past 24 hour labs (Noted hypokalemia this will be supplemented per protocol also attends to serum magnesium) - Diagnostic Findings Procedure: CT: pending (See report)
[2016-10-04] MEDS: SENNA 8.6 MG TABLET PO SCH ×2 (17:48→20:26)
[2016-10-04] MEDS: CARBIDOPA/LEVODOPA CR 25-100 MG TABLET PO SCH (20:26)
[2016-10-04] MEDS: ALPRAZolam 0.5 MG TABLET PO PRN (20:26)
[2016-10-04] MEDS: CITALOPRAM 40 MG TABLET PO SCH (20:26)
[2016-10-04] MEDS: oxyCODONE/ACETAMINOPHEN 5-325 MG TABLET PO PRN (20:32)
[2016-10-05 05:03] LABS: Apearance,Urine CLEAR (Clear); Bilirubin,Urine Negative (Negative); Blood, Urine Negative (Negative); Glucose,Urine (UA) >=500 mg/dL (Negative); Ketones,Urine Negative (Negative); Mucus,Urine Occasional /LPF (Occasional); Nitrite,Urine Negative (Negative); Protein,Urine Negative; RBC,Urine 4 /HPF (0-4); Squamous Epithelial Cell,Urine Occasional /HPF (0-10); Urine Color Yellow (Yellow); Urine Specific Gravity 1.015 (1.001-1.035); Urine Urobilinogen < 2.0 EU/DL (0.2-1.0); WBC,Urine 1 /HPF (0-6)
[2016-10-05] MEDS: methylPREDNISolone SOD SUC 40 MG/1 ML VIAL IV SCH (05:50)
[2016-10-05] MEDS: LEVOFLOXACIN INJ 750 MG in PREMIX 1 EACH IV SCH (05:53)
[2016-10-05] MEDS ORDERED: PROMETHAZINE 25 MG/1 ML VIAL IM ONE (07:00)
[2016-10-05] MEDS ORDERED: MEPERIDINE 50 MG/1 ML VIAL IM ONE (07:00)
[2016-10-05] MEDS ORDERED: MIDAZOLAM 2 MG/2 ML VIAL ONE (07:09)
[2016-10-05] MEDS ORDERED: MIDAZOLAM 2 MG/2 ML VIAL IV ONE (07:30)
[2016-10-05] MEDS ORDERED: LIDOCAINE 1% 20 ML VIAL MISC INJ ONE (07:30)
--- NOTE | 2016-10-05 07:33 | Pulmonology Progress Note ---
Pulmonary - PN: Subj Interval history: This 71-year-old white female is in with recurrent pneumonia and exacerbation of asthma. CT scan shows persistent left lower lobe atelectatic infiltrate posteriorly. This was seen in February 2016 as well and looks about the same. She had bronchoscopy that was negative then. I think we need to repeat her bronchoscopy and make sure she does not have any obstruction in the posterior basilar segment left lower lobe. Also will get cultures. She is feeling a little better and is not hypoxemic at present. In addition she had an echocardiogram done yesterday that was normal. 10/05/2016 patient is feeling better and sounds better today. Discussed bronchoscopy with patient and her family this morning. The area of abnormality in the left lower lobe has been there since February of last year. We have previously bronchoscoped her. Not sure whether this represents scarring or whether she has an obstructed bronchus. If everything checks out with bronchoscopy today she could probably be discharged over the weekend on oral medications. Exam (Progress Note) - Constitutional Vitals: Period Temp Pulse Resp BP Sys/Melendez Pulse Ox Last 24 Hr 97.3 F-98.1 F 66-106 12-20 128-169/64-92 89-99 Exam: Patient is alert oriented vital signs normal. No fever. Pupils react to light. Throat is clear. Neck supple no bruits. Chest shows a few rhonchi of the left base otherwise clear. Heart normal rate and rhythm no murmurs. Abdomen soft nontender no masses. Extremities no clubbing cyanosis edema. Calves nontender. Little change from yesterday. Results - Labs CBC & BMP: 10/03/16 04:42 10/03/16 04:42 Lab Results: I have reviewed the past 24 hour labs Assessment and Plan (1) Pneumonia Status: Acute Assessment and plan: Has a patchy bilateral interstitial pneumonitis. May be atypical. Will get a CT scan to get a better view of this as it is not very impressive on plain chest x-ray. 10/04/2016 CT does show some atelectatic infiltrate at the left base. It does appear that she has recurrent pneumonia. I am concerned that this is the same area that she had it before, so we will do a bronchoscopy to evaluate her airway. Also will get cultures. 10/05/2016 left lower lobe pneumonia in a patient with asthma. Much improved. Evaluating airway today because of persistent left basilar atelectasis. Current Visit: No (2) Severe persistent chronic asthma with acute exacerbation Status: Acute Assessment and plan: She is continuing to use her controller inhalers and bronchodilators. Needs brief burst of steroids. Glucoses will likely be difficult to control. 10/04/2016 asthma seems to be under better control. No active wheezing. 10/05/2016 asthma under better control tapering steroids. Current Visit: No (3) Diabetes mellitus Status: Chronic Assessment and plan: Glucoses were elevated. Getting steroids. Adjust sliding scale. 10/04/2016 blood sugars were running around 300. Increase sliding scale. 10/05/2016 blood sugars a little better. Current Visit: No
[2016-10-05] MEDS ORDERED: methylPREDNISolone SOD SUC 40 MG/1 ML VIAL IV SCH (08:00)
--- NOTE | 2016-10-05 08:20 | Operative Note ---
Date of procedure: 10/05/16 (Fiberoptic bronchoscopy with brushings left lower lobe) Pre-op diagnosis: Recurrent pneumonia, atelectasis left lower lobe, R/O endobronchial lesion Post-op diagnosis: same (No lesions seen, mucous plugging and bronchial wall edema were noted) Procedure: The patient was given preoperative intramuscular medications on the palacio. After being transported to endoscopy suite, she was topically anesthetized in the nose and nasopharynx with Xylocaine. After an appropriate timeout to be sure we were dealing with Alana Foster, 3 L nasal oxygen was placed in the left naris. She was given 4 mg of Versed intravenously to the point of sedation. The fiberoptic bronchoscope was introduced via the right naris. The vocal cords were identified and noted to function normally with phonation. After further topical anesthesia the trachea was entered and was free of lesions. The joel was sharp. The right lung showed only slightly increased secretions was basically free of lesions. On the left side the left upper lobe showed some increased secretions but no lesions. The left lower lobe showed some bronchial wall edema with mild narrowing in all of the basilar bronchi. There were no endobronchial lesion seen. There were some mucous plugs primarily in the posterior basilar segment left lower lobe. These were irrigated with saline and removed and sent for cultures. Brushings were then obtained from the posterior basilar segment of the left lower lobe which is where the infiltrate is noted on CT. There was no bleeding. Additional bronchial washings were obtained. The fiberoptic bronchoscope was removed. Patient returned to her room in stable condition. Findings were discussed with the patient's daughter who was in her room this morning. Anesthesia: conscious sedation Surgeon / Physician: Xavier Frank Estimated blood loss: none Specimens: other (Brushings 3 left lower lobe posterior segment, bronchial wash ) Condition: stable Disposition: floor Results - Labs CBC & BMP: 10/03/16 04:42 10/03/16 04:42 Discharge Plan - Discharge Medications No Action Carisoprodol [Soma] 350 mg PO TID PRN PRN Reason: Muscle Pain Allopurinol [Zyloprim] 300 mg PO BEDTIME PRN PRN Reason: Gout ALPRAZolam [Xanax] 0.5 mg PO TID PRN PRN Reason: Anxiety Glimepiride [Amaryl] 4 mg PO DAILY W/BREAKFAST Potassium Bicarbonate/Cit AC [Effer-K 10 Meq Tablet Eff] 10 meq PO DAILY PRN PRN Reason: Per Protocol Ondansetron Tab [Zofran Tab] 4 mg PO Q4H PRN PRN Reason: Nausea Citalopram [CeleXA] 40 mg PO BEDTIME Carbidopa/Levodopa Cr 25-100 [Sinemet Cr 25-100] 1 tablet PO BEDTIME Albuterol Neb [Proventil Neb] 2.5 mg RESP TX RT Q4H PRN #100 nebulization solution PRN Reason: Shortness Of Breath/Wheezing Budesonide/Formoterol 80-4.5 [Symbicort 80-4.5] 1 puff INH BID Fesoterodine Fumarate [Toviaz] 8 mg PO DAILY Mometasone/Formoterol 200-5 [Dulera 200-5] 2 puff INH BID Cyanocobalamin (Vitamin B-12) [Vitamin B-12] 1,000 mcg IM DIRECTED Hydrocodone Bit/Homatrop Me-Br [Hydrocodone/Homatropine 5-1.5 mg Tab] 1 tablet PO Q6H PRN PRN Reason: Pain Polyethylene Glycol Powder [Miralax] 17 gm PO DAILY Oxycodone HCl/Acetaminophen [Percocet 10-325 mg Tablet] 10 mg PO QID PRN PRN Reason: Pain - Follow Up or Referral - Forms/Instructions
--- NOTE | 2016-10-05 08:22 | Event Note ---
I discussed the case with patient's daughter after the bronchoscopy. I think we may do well to treat her the way we would treat a patient with bronchiectasis and she is apparently having recurrent episodes of pneumonia involving the same area of her lung. Starting her on Zithromax 250 mg Saturday long-term, once she is finished with current antibiotics, would be my plan. Certainly also needs long-term treatment for her asthma.
[2016-10-05] MEDS: ALBUTEROL/IPRATROPIUM 3 ML NEB RESP TX SCH ×4 (08:35→19:26)
[2016-10-05] MEDS: INSULIN REGULAR 100 UNIT/ML SUBCUT SCH ×4 (09:43→20:21)
[2016-10-05] MEDS: ENOXAPARIN 40 MG/0.4 ML SYRINGE SUBCUT SCH (10:30)
[2016-10-05] MEDS: BUDESONIDE/FORMOTEROL 80-4.5 INHALER 6.9 GM INH SCH ×2 (10:30→20:21)
[2016-10-05] MEDS: PANTOPRAZOLE 40 MG TABLET PO SCH (10:30)
[2016-10-05] MEDS: SENNA 8.6 MG TABLET PO SCH ×2 (10:30→20:20)
[2016-10-05] MEDS: GLIMEPIRIDE 4 MG TABLET PO SCH (10:30)
[2016-10-05] MEDS: FESOTERODINE 4 MG TABLET PO SCH (10:30)
--- NOTE | 2016-10-05 12:02 | Hospitalist Progress Note ---
Assessment and Plan (1) Severe persistent chronic asthma with acute exacerbation Status: Acute Assessment and plan: Continue aggressive beta 2 agonists and ipratropium bromide and steroids systemically. Patient is improved significantly on this issue. Current Visit: No (2) Acute respiratory failure with hypoxia Status: Acute Assessment and plan: After diuresis patient's breathing is better she has no acute distress. Saturating above 93%. Continue current management Current Visit: No (3) Right lower lobe pneumonia Status: Acute Assessment and plan: Patient has been afebrile for quite a while. She had mucus plugging of the left posterior basal segment of the lung. She went to the endoscopy suite this morning with removal of mucous plugging in that area. I believe at this point he should de-escalate the antibiotics. She still will need nebulized beta agonists and ipratropium bromide. Current Visit: No (4) Acute pulmonary edema Status: Acute Assessment and plan: Resolved. Current Visit: Yes Hospitalist: Subjective Interval history: Patient is seen interviewed and examined chart was reviewed. Patient just came back from bronchoscopy suite. She had endobronchial scope today with the discovery of mucus plugging in the left posterior basal segment. Brushings and bronchoalveolar lavage obtained specimen sent to the laboratory. Constant did not find any organisms fungal stains are pending at this time. Patient is still under anesthesia influence at this point but able to be aroused to talk to me. Admitted to the hospital with persistent infiltrate in the left lower lobe with a we show patent. Most likely this was secondary to lung atelectasis secondary to endobronchial pluggings with these mucous plugs. Exam - Constitutional Vitals: Period Temp Pulse Resp BP Sys/Melendez Pulse Ox Last 24 Hr 97.0 F-98.1 F 64-106 12-20 107-197/64-103 91-100 General appearance: morbidly obese - Head Head exam: Present: normocephalic, atraumatic - Eye Eye exam: Present: EOMI Pupils: Present: LELIA - ENT ENT exam: Present: normal exam - Neck Neck exam: Present: normal inspection - Respiratory Respiratory exam: Present: clear to auscultation bilaterally - Cardiovascular Cardiovascular exam: Present: regular rate and rhythm - GI/Abdominal GI/Abdominal exam: Present: normal bowel sounds - Extremities Exam Extremities exam: Present: full ROM - Neurological Exam Neurological exam: Present: alert, oriented X3, CN II-XII intact - Psychiatric Psychiatric exam: Present: normal affect, normal mood - Skin Skin exam: Present: normal color, warm, dry Results - Labs CBC & BMP: 10/03/16 04:42 10/03/16 04:42 Lab Results: I have reviewed the past 24 hour labs (Noted persistent hypokalemia. 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 But we need to cut down on the Lasix.)
[2016-10-05] MEDS ORDERED: methylPREDNISolone 4 MG TABLET PO SCH (12:30)
[2016-10-05] MEDS: methylPREDNISolone 4 MG TABLET PO SCH ×3 (12:59→20:21)
[2016-10-05] MEDS: CARBIDOPA/LEVODOPA CR 25-100 MG TABLET PO SCH (20:20)
[2016-10-05] MEDS: CITALOPRAM 40 MG TABLET PO SCH (20:21)
[2016-10-06] MEDS: ALBUTEROL/IPRATROPIUM 3 ML NEB RESP TX SCH ×4 (00:33→20:34)
[2016-10-06] MEDS: oxyCODONE/ACETAMINOPHEN 5-325 MG TABLET PO PRN ×2 (02:53→12:20)
--- NOTE | 2016-10-06 08:43 | Hospitalist Progress Note ---
Assessment and Plan - Time spent with patient Time spent with patient: Less than 30 minutes (1) Pneumonia Status: Acute Assessment and plan: She continues to improve. Will continue antibiotics at this time and consider discharge tomorrow if she remains afebrile and tolerating oral medications. She tells me that she does have home O2 that she primarily wears at night which we will continue as well as her routine home nebs and long-term Zithromax 250 mg p.o. Saturday and Saturday as noted in Dr. Frank plans. Current Visit: No Qualifiers: (2) Severe persistent chronic asthma with acute exacerbation Status: Acute Assessment and plan: Continues to clinically improve. Continue current medical therapy with plans as noted above. Current Visit: No (3) Diabetes mellitus Status: Chronic Assessment and plan: Continue current regimen. Suspect hyperglycemia will improve as we de-escalate steroid therapy. Current Visit: No Hospitalist: Subjective Interval history: Ms. Foster is doing well today. She continues to have some mild cough with some yellow greenish phlegm. Appetite is good and she denies any nausea, vomiting, diarrhea. She denies any chest pain. Her chart is been reviewed. Cultures negative thus far. She did undergo bronchoscopy yesterday and it is noted that Dr. Frank recommends placing her on Zithromax 250 mg p.o. Saturday and Saturday long-term basis to treat her for possible bronchiectasis. Exam - Constitutional Vitals: Period Temp Pulse Resp BP Sys/Melendez Pulse Ox Last 24 Hr 97.0 F-97.8 F 60-83 16-20 129-145/66-87 94-98 General appearance: no acute distress - Head Head exam: Present: normocephalic, atraumatic - Eye Eye exam: Present: EOMI Pupils: Present: LELIA - ENT ENT exam: Present: normal exam - Neck Neck exam: Present: normal inspection - Respiratory Respiratory exam: Present: clear to auscultation bilaterally. Absent: rales, rhonchi, wheezes - Cardiovascular Cardiovascular exam: Present: regular rate and rhythm. Absent: tachycardia - GI/Abdominal GI/Abdominal exam: Present: normal bowel sounds, soft. Absent: mass, tenderness , rebound - Extremities Exam Extremities exam: Absent: calf tenderness, edema - Back Exam Back exam: Present: normal inspection - Neurological Exam Neurological exam: Present: alert, oriented X3, CN II-XII intact. Absent: motor sensory deficit - Psychiatric Psychiatric exam: Present: normal affect, normal mood. Absent: agitated, anxious - Skin Skin exam: Present: warm, dry. Absent: erythema, rash Results - Labs CBC & BMP: 10/03/16 04:42 10/03/16 04:42 Lab Results: I have reviewed the past 24 hour labs
[2016-10-06] MEDS: ENOXAPARIN 40 MG/0.4 ML SYRINGE SUBCUT SCH (09:08)
[2016-10-06] MEDS: methylPREDNISolone 4 MG TABLET PO SCH ×2 (09:09→16:11)
[2016-10-06] MEDS: FESOTERODINE 4 MG TABLET PO SCH (09:09)
[2016-10-06] MEDS: SENNA 8.6 MG TABLET PO SCH (09:09)
[2016-10-06] MEDS: GLIMEPIRIDE 4 MG TABLET PO SCH (09:10)
[2016-10-06] MEDS: INSULIN REGULAR 100 UNIT/ML SUBCUT SCH ×4 (09:10→20:02)
[2016-10-06] MEDS: BUDESONIDE/FORMOTEROL 80-4.5 INHALER 6.9 GM INH SCH (09:10)
[2016-10-06] MEDS: PANTOPRAZOLE 40 MG TABLET PO SCH (09:10)
[2016-10-06] MEDS: AZITHROMYCIN 250 MG TABLET PO SCH (09:12)
[2016-10-06 09:51] LABS: Basophils % 0.3 % (0.0-0.8); Hemoglobin 12.2 GM/DL (12.0-16.0); Immature Granulocytes % 4.6 %; Immature Granulocytes Absolute 0.56 #; Lymphocytes # 1.1 10*3/uL (1.4-4.0); Lymphocytes % 9.1 % (21.3-54.2); Mean Corpuscular Hemoglobin 28 PG (27-34); Mean Platelet Volume 9.8 FL (9.6-12.0); Monocytes # 0.8 10*3/uL (0.11-0.8); Monocytes % 6.2 % (1.7-12.7); NRBC # 0.04 10*3/uL; Neutrophils # 9.8 10*3/uL (1.4-7.4); Neutrophils % 79.8 % (38.7-73.9); Platelet Count 239 T/CUMM (130-400); Red Cell Distribution Width 14.8 % (9.3-17.3); White Blood Count 12.2 T/CUMM (4-12)
--- NOTE | 2016-10-06 10:12 | Pulmonology Progress Note ---
Pulmonary - PN: Subj Interval history: Patient of Dr Frank, underwent bronchoscopy yesterday. No growth on cultures, fungal or AFB. Patient clinically doing well. No other acute overnight events Exam (Progress Note) - Constitutional Vitals: Period Temp Pulse Resp BP Sys/Melendez Pulse Ox Last 24 Hr 97.0 F-97.8 F 60-83 16-20 129-145/66-87 94-98 General appearance: no acute distress - Head Head exam: Present: normal inspection - ENT ENT exam: Present: normal exam - Respiratory Respiratory exam: Present: clear to auscultation bilaterally. Absent: accessory muscle use, wheezes - Cardiovascular Cardiovascular exam: Present: regular rate and rhythm - GI/Abdominal GI/Abdominal exam: Present: normal bowel sounds Results - Labs CBC & BMP: 10/03/16 04:42 10/03/16 04:42 Lab Results: I have reviewed the past 24 hour labs Assessment and Plan (1) COPD exacerbation Status: Acute Assessment and plan: Can continue on home meds. Currently has 2 combo ICS/LABAs ordered, should continue on what shes' on at home. Current Visit: No (2) Bronchitis Status: Acute Assessment and plan: Per Dr Frank, patient can switch to MWF Azithromycin 250mg PO, and can follow up with him in clinic Current Visit: No
[2016-10-06 10:14] LABS: Band Neutrophils 1 % (0-10); Hypochromasia 1+; Lymphocytes 9 % (20-55); Microcytosis 1+; Myelocytes 1 %; Platelet Estimate Normal; Segmented Neutrophils 85 % (50-85); Total Cells Counted 100
[2016-10-06 10:18] LABS: Calcium 8.7 MG/DL (8.5-10.1)
[2016-10-06 10:19] LABS: Osmolality,Calculated 286.7 MOS/KG (273-304); Potassium 4.4 MMOL/L (3.5-5.1)
[2016-10-06] MEDS: MOMETASONE/FORMOTEROL 200-5 INHALER 8.8 GM INH SCH ×2 (12:21→20:03)
[2016-10-06] MEDS ORDERED: ONDANSETRON 4 MG TABLET PO PRN (13:11)
[2016-10-06] MEDS ORDERED: oxyCODONE/ACETAMINOPHEN 5-325 MG TABLET PO PRN (13:11)
[2016-10-06] MEDS: predniSONE 20 MG TABLET PO SCH (13:57)
[2016-10-06] MEDS: CITALOPRAM 40 MG TABLET PO SCH (20:02)
[2016-10-06] MEDS: ALPRAZolam 0.5 MG TABLET PO PRN (20:02)
[2016-10-06] MEDS: CARBIDOPA/LEVODOPA CR 25-100 MG TABLET PO SCH (20:02)
[2016-10-07] MEDS: ALBUTEROL/IPRATROPIUM 3 ML NEB RESP TX SCH ×2 (00:13→07:25)
--- NOTE | 2016-10-07 08:15 | Discharge Summary ---
Hospital Course - Hospital Course Hospital Course: Ms. Foster is a 71-year-old white female with past medical history of diabetes /gout/COPD/chronic kidney problems/fibromyalgia who presented with shortness of breath and fever with a right lower lobe pneumonia. She was admitted cultured and placed on IV antibiotics as well as some IV corticosteroids. Pulmonary was consulted and Dr. Frank responded. CT chest was performed and revealed a prominent bandlike wedge-shaped opacity in the left lower lobe extending to the left hilum to the pleural space likely representing atelectasis but pneumonia or chronic inflammatory process was not excluded there were similar opacity seen in the left lower lobe left upper lobe on previous high-resolution CT in February 2016. Underlying neoplastic process cannot be excluded. Patient underwent bronchoscopy on 10/05/[address] Frank. There were no lesions seen. There was mucus plugging and bronchial wall edema noted. Bronchial washing were negative cultures AFB and fungal. Blood cultures remained negative. Dr. Frank discussed with the patient and family the recommendation to place her on Zithromax 250 mg p.o. Saturday and Saturday indefinitely and treat her as probable bronchiectasis. During her stay she also had echocardiogram revealed an normal ejection fraction at 60%. She notes that she has home O2 which she wears on a as needed basis, she has remained afebrile and placed on oral medications and is felt that she had reached maximal benefit from hospital stay and could be discharged home with outpatient follow-up. - Time spent with patient Time with patient DS: Less than 30 minutes Diagnosis - Discharge Diagnosis (1) Pneumonia Status: Acute (2) Severe persistent chronic asthma with acute exacerbation Status: Acute (3) Diabetes mellitus Status: Chronic Specialty Discharge - Follow Up or Referrals Follow up with: Xavier Frank MD [Physician] - 1 Month Claudy Martin MD [Physician] - 5 Days Discharge Plan - Discharge Data Disposition: Disch To Home/Self Care Condition at Discharge: Stable Discharge Diet: diabetic diet Activity: other (Her oxygen at night and as needed) Contact your physician if you experience:: fever over 101, Shortness of breath - Discharge Medications New Azithromycin Tab [Zithromax Tab] 250 mg PO QOTHER DAY #30 tablet predniSONE TAB [PredniSONE] 40 mg PO DAILY #10 tablet Continue Carisoprodol [Soma] 350 mg PO TID PRN PRN Reason: Muscle Pain Allopurinol [Zyloprim] 300 mg PO BEDTIME PRN PRN Reason: Gout ALPRAZolam [Xanax] 0.5 mg PO TID PRN PRN Reason: Anxiety Glimepiride [Amaryl] 4 mg PO DAILY W/BREAKFAST Potassium Bicarbonate/Cit AC [Effer-K 10 Meq Tablet Eff] 10 meq PO DAILY PRN PRN Reason: Per Protocol Ondansetron Tab [Zofran Tab] 4 mg PO Q4H PRN PRN Reason: Nausea Citalopram [CeleXA] 40 mg PO BEDTIME Carbidopa/Levodopa Cr 25-100 [Sinemet Cr 25-100] 1 tablet PO BEDTIME Albuterol Neb [Proventil Neb] 2.5 mg RESP TX RT Q4H PRN #100 nebulization solution PRN Reason: Shortness Of Breath/Wheezing Fesoterodine Fumarate [Toviaz] 8 mg PO DAILY Mometasone/Formoterol 200-5 [Dulera 200-5] 2 puff INH BID Cyanocobalamin (Vitamin B-12) [Vitamin B-12] 1,000 mcg IM DIRECTED Hydrocodone Bit/Homatrop Me-Br [Hydrocodone/Homatropine 5-1.5 mg Tab] 1 tablet PO Q6H PRN PRN Reason: Pain Polyethylene Glycol Powder [Miralax] 17 gm PO DAILY Oxycodone HCl/Acetaminophen [Percocet 10-325 mg Tablet] 10 mg PO QID PRN PRN Reason: Pain Discontinued Budesonide/Formoterol 80-4.5 [Symbicort 80-4.5] 1 puff INH BID - Follow Up or Referral Follow Up: Claudy Martin MD [Physician] - 5 Days Xavier Frank MD [Physician] - 1 Month - Forms/Instructions Additional Discharge Instructions: Note that her prednisone dosage is tapered at 40 mg p.o. daily 2, 30 mg p.o. daily 2, 20 mg p.o. daily 2, 10 mg p.o. daily 2 then discontinue Exam - Constitutional Vitals: Period Temp Pulse Resp BP Sys/Melendez Pulse Ox Last 24 Hr 97.3 F-98.2 F 60-80 17-20 130-145/62-76 92-99 General appearance: no acute distress - Head Head exam: Present: normocephalic, atraumatic - Eye Eye exam: Present: EOMI Pupils: Present: LELIA - ENT ENT exam: Present: normal exam - Neck Neck exam: Present: normal inspection - Respiratory Respiratory exam: Present: clear to auscultation bilaterally. Absent: rales, rhonchi, wheezes - Cardiovascular Cardiovascular exam: Present: regular rate and rhythm. Absent: tachycardia - GI/Abdominal GI/Abdominal exam: Present: normal bowel sounds, soft. Absent: mass, tenderness , rebound - Extremities Exam Extremities exam: Absent: calf tenderness, edema - Back Exam Back exam: Present: normal inspection - Neurological Exam Neurological exam: Present: alert, oriented X3, CN II-XII intact. Absent: motor sensory deficit - Psychiatric Psychiatric exam: Present: normal affect, normal mood. Absent: agitated, anxious - Skin Skin exam: Present: warm, dry. Absent: erythema, rash Discharge Results Procedures and tests throughout hospitalization: Pending Orders 10/05/16 08:14 Cytology Request Routine 10/05/16 08:15 AFB Culture/Smears Routine Fungal Culture w/ Prep Routine Labs on day of discharge: Labs from last 24 hours 10/06/16 10/06/16 10/06/16 19:16 15:58 10:48 WBC RBC Hgb Hct MCV MCH MCHC RDW Plt Count MPV Neut % (Auto) Lymph % (Auto) [place] % (Auto) Eos % (Auto) Baso % (Auto) Neut # (Auto) Lymph # (Auto) [place] # (Auto) Eos # (Auto) Baso # (Auto) Total Counted Immature Gran % Nucleated RBC % Immature Gran # Segmented Neutrophils Band Neutrophils Lymphocytes Monocytes Myelocytes Nucleated RBCs # Platelet Estimate Hypochromasia Microcytosis Sodium Potassium Chloride Carbon Dioxide Anion Gap BUN Creatinine GFR Calculation BUN/Creatinine Ratio Glucose POC Glucose 313 H 227 H 191 H Calculated Osmolality Calcium 10/06/16 10/06/16 10/06/16 09:34 09:34 08:05 WBC 12.2 H D RBC 4.30 Hgb 12.2 Hct 37.0 MCV 86.0 L MCH 28 MCHC 33.0 RDW 14.8 Plt Count 239 MPV 9.8 Neut % (Auto) 79.8 H Lymph % (Auto) 9.1 L [place] % (Auto) 6.2 Eos % (Auto) 0.0 Baso % (Auto) 0.3 Neut # (Auto) 9.8 H Lymph # (Auto) 1.1 L [place] # (Auto) 0.8 Eos # (Auto) 0.0 Baso # (Auto) 0.0 Total Counted 100 Immature Gran % 4.6 Nucleated RBC % 0.3 Immature Gran # 0.56 Segmented Neutrophils 85 Band Neutrophils 1 Lymphocytes 9 L Monocytes 4 Myelocytes 1 Nucleated RBCs # 0.04 Platelet Estimate Normal Hypochromasia 1+ Microcytosis 1+ Sodium 138 Potassium 4.4 Chloride 97 L Carbon Dioxide 34 H Anion Gap 11.4 BUN 22 H Creatinine 1.00 GFR Calculation 66 BUN/Creatinine Ratio 22.00 H Glucose 261 H POC Glucose 202 H Calculated Osmolality 286.7 Calcium 8.7 - Imaging and Cardiology Cardiology Procedure: report reviewed by me Procedure: Chest x-ray: report reviewed by me, CT - chest: report reviewed by me DS: Provider Date of admission: 10/02/16 06:05 Primary care physician: . No PCP Attending physician on admission: Beto Yang MD Consults: 10/02/16 06:05 Consult to Physician [CONS] Routine Comment: patient of yours Consulting Provider: Xavier Frank Person Notified: Leelee Date Notified: 10/02/16 Time Notified: 11:18 Consult Notification Comment: Discharging clinician: Remington Jeff Expected date of discharge: 10/07/16
[2016-10-07] MEDS: AZITHROMYCIN 250 MG TABLET PO SCH (08:56)
[2016-10-07] MEDS: ENOXAPARIN 40 MG/0.4 ML SYRINGE SUBCUT SCH (08:56)
[2016-10-07] MEDS: predniSONE 20 MG TABLET PO SCH (08:56)
[2016-10-07] MEDS: INSULIN REGULAR 100 UNIT/ML SUBCUT SCH (08:56)
[2016-10-07] MEDS: GLIMEPIRIDE 4 MG TABLET PO SCH (08:56)
[2016-10-07] MEDS: PANTOPRAZOLE 40 MG TABLET PO SCH (08:56)
[2016-10-07] MEDS: FESOTERODINE 4 MG TABLET PO SCH (08:56)
[2016-10-07] MEDS ORDERED: POLYETHYLENE GLYCOL POWDER 17 GM PACK PO SCH (09:00)
[2016-10-07] MEDS: MOMETASONE/FORMOTEROL 200-5 INHALER 8.8 GM INH SCH (09:01)
[2016-10-07 10:43] VITALS: BP 158/97
--- NOTE | 2016-10-09 12:15 | Pathology Report from [facility] ---
[facility] [place] # : [id number] PATIENT NAME : Alana Foster ORDERING DR : RHEA TOWNSEND MD CLINICAL HX: Recurrent Pneumonia, Exacerbation of asthma POST-OP DX: Same SPECIMEN INFO: Washing,Bronchial,LLL - 10 mls greyish white, cloudy with yellow particles CLASS: I CLASS COMMENTS: Chronic, acute inflammation, squamous metaplalsia, benign respiratory epithelium, few macrophages.CELL BLOCK: Same CLASS LEGEND: CLASS 0 Material inadequate for diagnosis because of (see comment) CLASS I Absence of atypical or abnormal cells CLASS II Atypical Cytology but no evidence of malignancy CLASS III Cytology suggestive of but not conclusive for malignancy CLASS IV Cytology strongly suggestive of malignancy CLASS V Cytology conclusive for malignancy COLLECTED DATE: 10/05/2016 [facility] [place] DATE: 10/09/2016 ELECTRONICALLY SIGNED BY: Josh Dueñas III, M.D. 10/09/2016 - 8:36:16 [facility]
--- NOTE | 2016-10-09 12:16 | Pathology Report from [facility] ---
[facility] ACCESSION # : [id number] PATIENT NAME : Alana Foster ORDERING DR : RHEA TOWNSEND MD CLINICAL HX: Recurrent Pneumonia, Exacerbation of Asthma POST-OP DX: Same SPECIMEN INFO: Brushing, Bronchial,LLL - 3 brushes (Received in [facility]). CLASS: I CLASS COMMENTS: Acute inflammation, benign respiratory epithelium.CELL BLOCK: Same CLASS LEGEND: CLASS 0 Material inadequate for diagnosis because of (see comment) CLASS I Absence of atypical or abnormal cells CLASS II Atypical Cytology but no evidence of malignancy CLASS III Cytology suggestive of but not conclusive for malignancy CLASS IV Cytology strongly suggestive of malignancy CLASS V Cytology conclusive for malignancy COLLECTED DATE: 10/05/2016 [facility] REPORT DATE: 10/09/2016 ELECTRONICALLY SIGNED BY: Josh Dueñas III, M.D. 10/09/2016 - 8:38:08 [facility] CENTERGur[facility]
== END 2016-10-07 11:10 | disposition home or self-care (01) | DRG 189 ==
LOC: EDBD → EDUNIT# → N.ED 04:06 → SUATTDRO 06:05 → N.EDINP 06:05 → N.5E 06:58
PROVIDERS: ADMIT Internal Medicine; ATTEND Hospitalist
PROC: BRONCHB (2016-10-05 07:20)

== ENCOUNTER 2016-10-24 12:17 | Inpatient (IN) ==
[2016-10-24] MEDS: ALBUTEROL/IPRATROPIUM 3 ML NEB RESP TX SCH ×2 (13:10→19:46)
[2016-10-24] MEDS ORDERED: ALBUTEROL/IPRATROPIUM 3 ML NEB RESP TX PRN (13:38)
[2016-10-24] MEDS ORDERED: GLUCAGON 1 MG VIAL IM PRN ×2 (13:39→15:53)
[2016-10-24] MEDS ORDERED: ACETAMINOPHEN 325 MG TABLET PO PRN (13:39)
[2016-10-24] MEDS ORDERED: ONDANSETRON 4 MG/2 ML VIAL IV PRN (13:39)
[2016-10-24] MEDS ORDERED: traZODone 50 MG TABLET PO PRN (13:39)
[2016-10-24] MEDS ORDERED: guaiFENesin/DM ER 600-30 MG TABLET PO PRN (13:39)
[2016-10-24] MEDS ORDERED: DEXTROSE 50% 25 GM/50 ML VIAL IV PRN ×2 (13:39→15:53)
--- NOTE | 2016-10-24 13:54 | XRay Report ---
Single view of the chest. Indication: Shortness of breath. Comparison: October 02, 2016. The heart is borderline enlarged. There is calcific plaque present within the aortic knob. The pulmonary vasculature is normal. There is prominence of the central pulmonary vasculature, accentuating the heart size. There are scattered areas of atelectasis at each base. No pneumothorax or pleural effusion. Impression: Scattered atelectasis. Mild cardiomegaly. Prominent central pulmonary vasculature. PROCEDURE INTERPRETED AT [facility] DEPARTMENT OF RADIOLOGY Final Report Signed by: Dr. Cara Mancuso
[2016-10-24 14:26] LABS: ABG Base Excess 5.2 MMOL/L (-2.5-2.5); ABG HCO3 28.9 MMOL/L (20-26); ABG PCO2 46.5 MM HG (35-48); ABG PH 7.423 (7.35-7.45); ABG PO2 59.9 MM HG (80-95); ABG TCO2 27.5 MMOL/L (23-27)
--- NOTE | 2016-10-24 14:46 | Hospitalist History & Physical ---
<Wen Gainesda - Last Filed: 10/24/16 15:11> Assessment and Plan (1) Acute dyspnea Status: Acute Assessment and plan: The patient was hypoxic at the time of admission with oxygen saturations in the 70%. The patient's oxygen was adjusted and her O2 saturations improved. Her O2 saturations are noted at 91%. We will obtain a stat ABG and review. The noted desaturations are an area of concern to me, we will do a full PE workup; will obtain VQ scan when patient is more stable. We will obtain labs and chest x-ray for baseline. Due to the known history of interstitial lung disease, we will consult pulmonary to evaluate and assist during the clinical encounter. We will obtain bilateral venous Doppler studies to rule out deep vein thrombosis. Current Visit: No (2) COPD exacerbation Status: Acute Assessment and plan: We will consult pulmonary to evaluate during the clinical encounter. We will start corticosteroids and inhaled bronchodilators. Current Visit: No (3) Hypoxemia Status: Acute Assessment and plan: We will continue supplemental oxygen to keep O2 saturations above 92%. We will recheck chest x-ray and arterial blood gas in a.m.. Current Visit: No History of Present Illness Chief complaint: shortness of breath History of present illness: This is a very unfortunate 71 year old female that presented to [facility] as direct admission from Dr. Thomas Martin's office for evaluation of shortness of breath and cough. The patient has a very complex medical history significant for anxiety, hypertension morbid obesity interstitial lung disease, hearing loss, [id number] diabetes mellitus , hypothyroidism, endocrine carcinoma, gouty arthritis, asthma, chronic obstructive pulmonary disease, obstructive sleep apnea, pneumonia, urinary incontinence, chronic urinary tract infections, hemorrhoids, chronic back pain, arthritis, and fibromyalgia. Patient has a surgical history significant for appendectomy, cholecystectomy, colonoscopy, hysterectomy, rotator cuff repair, lumbar disc discectomy, carpal tunnel release, and retinal surgery. The patient presented to Dr. Thomas Martin office this morning for the above complaint. The patient reported that she had a productive cough with thick green colored sputum 1 week. The patient was seen in Dr. Martin office today and was noted to be severely hypoxic with O2 saturations noted at low as 64%. Her supplemental oxygen was increased from 2 L/min to 5 L/min, however her sats only improved to 70's. She was wheezing audibly. This was apparently alarming to Dr. Martin, who in turn contacted the hospitalist services for direct admission to the [facility]. - Home Medications Medication Instructions Recorded Confirmed Type ALPRAZolam [Xanax] 0.5 mg PO TID PRN 11/29/14 10/24/16 History Allopurinol [Zyloprim] 300 mg PO DAILY 11/29/14 10/24/16 History Glimepiride [Amaryl] 4 mg PO DAILY W/BREAKFAST 11/29/14 10/24/16 History Carbidopa/Levodopa Cr 25-100 1 tablet PO BEDTIME 04/15/15 10/24/16 History [Sinemet Cr 25-100] Citalopram [CeleXA] 40 mg PO DAILY 04/15/15 10/24/16 History Ondansetron Tab [Zofran Tab] 4 mg PO Q4H PRN 04/15/15 10/24/16 History Albuterol Neb [Proventil Neb] 2.5 mg RESP TX RT Q4H PRN #100 02/24/16 10/24/16 Rx nebulization solution Cyanocobalamin (Vitamin B-12) 1,000 mcg IM DIRECTED 07/19/16 10/24/16 History [Vitamin B-12] Polyethylene Glycol Powder 17 gm PO DAILY 10/02/16 10/24/16 History [Miralax] Azithromycin Tab [Zithromax Tab] 250 mg PO QOTHER DAY 10/24/16 10/24/16 History Carisoprodol 350 mg PO TID 10/24/16 10/24/16 History Estradiol [Estrace Tab] 0.5 mg PO DAILY 10/24/16 10/24/16 History Fluconazole 200 mg PO DAILY 10/24/16 10/24/16 History Hydrocodone/Acetaminophen 1 tablet PO Q6HR PRN 10/24/16 10/24/16 History [Hydrocodon-Acetaminophn 10-325] Mirabegron [Myrbetriq] 25 mg PO DAILY 10/24/16 10/24/16 History Potassium Chloride 10 meq PO BID MDD supplement 10/24/16 10/24/16 History Allergies Allergy/AdvReac Type Severity Reaction Status Date / Time Penicillins Allergy RASH Verified 07/17/16 21:13 phenobarbital Allergy RASH Verified 07/17/16 21:13 Medical,Surgical,& Family Hx - Medical History Cardio: History of: Hypertension Psychological: History of: Anxiety Disorders No history of: Behavior Problems, Bipolar Disorder, Depression, Psychiatric/ Substance Abuse Tx, Schizophrenia, Violent Behavior, Psychiatric Problems Neurology: No history of: Seizures HEENT: History of: Ear Problem (hard of hearing), Eye Problem (cataract surgery) No history of: Dental Problems Endocrine: History of: Diabetes Mellitus (NIDDM) No history of: Adrenal Disease, Diabetes Mellitus (IDDM), Thyroid Disorder, Endocrine Cancer, Endocrine Problems Rheumatology: History of;: Gout Respiratory: History of: Asthma, Bronchitis, COPD, Obstructive Sleep Apnea, Pneumonia Genitourinary: History of: Bladder Problem (incontient episodes), Recurring Urinary Tract Infections Gastrointestinal: History of: GERD, Hemorrhoids No history of: Gastrointestinal Bleed, Liver Problems, GI Problems Musculoskeletal: History of: Back/Neck Problems (chronic back pain), Musculoskeletal Problems (arthritis) No history of: Amputation Hematology: No history of: Anemia, Blood Transfusion Reaction, Bleeding Problems, Clotting Problems, Sickle Cell Disease, Hematologic Cancer, Blood Disorders Other: No history of: Anesthesia Reactions, Eczema, HIV - Surgical History Cardiac Surgeries: Patient Denies: Femoral-Popliteal Bypass Graft, Cardiac Catheterization, Cardiac Surgery, Carotid Endarterectomy, Internal Defibrillator, Vascular Access Devices Thoracic Surgeries: Patient denies;: Kidney (Renal Surgery), Lithotripsy, Nephrectomy, Organ Transplant, Lobectomy Neurologic Surgeries: Patient denies: Neurologic Surgery HEENT Surgeries: Surgical HX of: Eye Surgery (retinal surgery) Patient denies: Carotid Endarterectomy, Thyroid Surgery, Tonsilectomy & Adenoidectomy Abdominal Surgeries: Surgical HX of: Abdominal Surgery, Appendectomy, Cholecystectomy, Colonoscopy, EGD Patient denies: Gastric Bypass Surgery, Hernia Repair, Splenectomy Reproductive Surgeries: Surgical HX of;: Hysterectomy Patient denies;: Cystoscopy, Genitourinary Surgery Orthopedic Surgeries: Surgical HX of;: Orthopedic Surgery (rotator cuff, carpal tunnel release), Spinal Surgery (lumbar disc surgery) Patient denies;: Implanted Devices, Total Hip Replacement, Total Knee Replacement - Family History Family History: Reports;: Family Cancer (sister,brother), Family Diabetes ( daughter), Family Heart Disease (mother), Family Stroke (son) Denies;: Family Anesthesia Reaction, Family Hypertension, Family Psychiatric Problems - Social History Smoking Status: Never smoker Frequency of Alcohol Use: None Type of Drug Use: None 12 point system: reviewed and no additional remarkable complaints except as stated Exam - Constitutional General appearance: mild distress, morbidly obese - Head Head exam: Present: normal inspection, normocephalic, atraumatic - Eye Eye exam: Present: EOMI. Absent: conjunctival injection, nystagmus Pupils: Present: LELIA, normal accommodation - ENT ENT exam: Present: normal exam, normal external ear exam, normal oropharynx - Neck Neck exam: Present: normal inspection. Absent: lymphadenopathy, meningismus, thyromegaly - Respiratory Respiratory exam: Present: accessory muscle use, decreased breath sounds, wheezes - Cardiovascular Cardiovascular exam: Present: regular rate and rhythm. Absent: carotid bruit, diastolic murmur, gallop, JVD, rubs, systolic murmur - GI/Abdominal GI/Abdominal exam: Present: normal bowel sounds, soft, other (Round, obese). Absent: distended, firm, guarding, mass, tenderness - Extremities Exam Extremities exam: Present: normal inspection, normal capillary refill, edema (+ 3 edema noted bilaterally) - Back Exam Back exam: Present: normal inspection - Neurological Exam Neurological exam: Present: alert, oriented X3, CN II-XII intact - Psychiatric Psychiatric exam: Present: anxious - Skin Skin exam: Present: normal color, warm, dry Results - Labs CBC & BMP: 10/24/16 14:24 Lab Results: I have reviewed the past 24 hour labs <John Montanez - Last Filed: 10/24/16 17:33> History of Present Illness History of present illness: Patient seen and examined independently of IMTIAZ Gaines, agree with history, assessment and plan as documented. 71 y/o WF with recent admission for interstitial pneumonia admitted with sob. Daughter reports that patient completed her steroid taper two days ago. On admission when take off of supplemental oxygen her oxygen saturation dropped to 54%. Up to 90% on 5L. Steroids, duonebs. Pulmonary consulted, started on levaquin and aztreonam. CT PE without PE. Discussed code status with patient, she desires to be DNR. Exam - Constitutional Vitals: Period Temp Pulse Resp BP Sys/Melendez Pulse Ox Last 24 Hr 82-88 18-22 92-96 Results - Labs CBC & BMP: 10/24/16 14:24 10/24/16 14:24
[2016-10-24 14:48] LABS: Basophils # 0.1 10*3/uL (0.0-0.2); Basophils % 1.2 % (0.0-0.8); Eosinophils # 0.1 10*3/uL (0.0-0.87); Eosinophils % 0.6 % (0.00-10.9); Hematocrit 33.3 VOL% (35.7-47.0); Hemoglobin 10.7 GM/DL (12.0-16.0); Immature Granulocytes % 3.7 %; Immature Granulocytes Absolute 0.35 #; Lymphocytes # 1.3 10*3/uL (1.4-4.0); Lymphocytes % 13.1 % (21.3-54.2); Mean Corpuscular HGB Conc 32.1 GM/DL (32-36); Mean Corpuscular Hemoglobin 28 PG (27-34); Mean Corpuscular Volume 87.9 FL (87-102); Mean Platelet Volume 9.6 FL (9.6-12.0); Monocytes # 0.7 10*3/uL (0.11-0.8); Monocytes % 6.8 % (1.7-12.7); NRBC # 0.06 10*3/uL; Neutrophils # 7.1 10*3/uL (1.4-7.4); Neutrophils % 74.6 % (38.7-73.9); Platelet Count 321 T/CUMM (130-400); Red Blood Count 3.79 MC/CUMM (3.8-5.5); White Blood Count 9.6 T/CUMM (4-12)
[2016-10-24 15:29] LABS: Albumin 2.3 G/DL (3.4-5.0); Bilirubin,Direct 0.3 MG/DL (0.0-0.20); Bilirubin,Indirect 0.7 MG/DL (0.0-1.0); Calcium 8.8 MG/DL (8.5-10.1); Magnesium 1.9 MG/DL (1.8-2.4); Osmolality,Calculated 272.5 MOS/KG (273-304); Total Protein 6.2 G/DL (6.4-8.3)
[2016-10-24] MEDS: ENOXAPARIN 40 MG/0.4 ML SYRINGE SUBCUT SCH (15:32)
[2016-10-24] MEDS: methylPREDNISolone SOD SUC 125 MG/2 ML VIAL IV SCH ×2 (15:32→21:36)
[2016-10-24 16:50] LABS: Apearance,Urine CLOUDY (Clear); Bacteria,Urine Moderate /HPF (Few); Bilirubin,Urine Negative (Negative); Blood, Urine Negative (Negative); Glucose,Urine (UA) Negative (Negative); Ketones,Urine 5 mg/dL (Negative); Mucus,Urine Few /LPF (Occasional); Nitrite,Urine Negative (Negative); Protein,Urine 30 MG/DL; RBC,Urine 2 /HPF (0-4); Squamous Epithelial Cell,Urine Few /HPF (0-10); Urine Color Yellow (Yellow); WBC,Urine 4 /HPF (0-6)
--- NOTE | 2016-10-24 17:02 | CT Report ---
Exam: CT chest PE study Date: 10/24/2016 3:47 PM Indication: Shortness of breath Comparison: 10/03/2016 Technical: Images were obtained from the thoracic inlet through the lung bases with 80 cc of Omnipaque 350 with axial and coronal imaging available for review. Dose reduction was performed with decreasing kv and mA and automated exposure. 3-D MIP images were obtained Findings: The thyroid gland and trachea and esophagus are unremarkable. The pulmonary outflow tract, left and right proximal pulmonary arteries, first-order, second-order and third order branches reveal no evidence of pulmonary thromboemboli. The lungs reveal patchy infiltrates in the posterior basilar regions bilaterally with underlying component of scarring and atelectatic change also present. No obvious effusions present. Small calcified granuloma left lung base No defined mass present. Cardiomegaly is present with ASVD. Degenerative changes present thoracolumbar spine. Prior cholecystectomy clips are present. The liver and spleen shadow is unremarkable. The stomach is incompletely distended. The pancreas reveals some fatty infiltrate. The adrenal glands are intact. The proximal kidney on the left is demonstrated. The right is not seen in the adrenal glands are intact. Impression: 1. No evidence of pulmonary thromboemboli 2. Patchy infiltrates atelectatic change in the lung bases bilaterally with underlying scarring and small calcified granuloma in the left base is again noted 3. Cardiomegaly 4. Previous cholecystectomy 5. Degenerative spondylosis changes thoracolumbar spine with the tip component of diffuse idiopathic skeletal hyperostosis along the anterior margin of the majority of thoracic spine PROCEDURE INTERPRETED AT [facility] DEPARTMENT OF RADIOLOGY Final Report Signed by: Dr. Claudy Chavez
--- NOTE | 2016-10-24 17:12 | Pulmonology Consult Note ---
Assessment and Plan (1) Oxygen dependent Status: Acute Assessment and plan: Patient uses oxygen at home especially at night. She has sleep hypopnea but does not require CPAP. Current Visit: No (2) Pneumonia Status: Acute Assessment and plan: She has had frequent episodes of pneumonia, usually in different lobes. This time it seems to be both lower lobes posteriorly. This is concerning for underlying lung disease or an immune disorder as a cause of this. We know that she has chronic asthma and mucous plugging I think this is likely the cause. I had put her on Zithromax much as we would do for bronchiectasis to see if we could decrease the number of infections. She is only been on it a week or so so I do not think it has had a full trial. Current Visit: No (3) Severe persistent chronic asthma with acute exacerbation Status: Acute Assessment and plan: Treat with steroids and bronchodilators. She has not grown out any Aspergillus or anything of that sort from bronchoscopy before Current Visit: No (4) Diabetes mellitus Status: Chronic Assessment and plan: Glucoses were elevated. Sliding scale insulin indicated. Current Visit: No History of Present Illness Chief complaint: Cough congestion fever hypoxemia History of present illness: Ms. Foster is a 71 year old female who relates that about a week ago her oxygen levels were in the 70s and had a difficult time getting them up at home even with nasal oxygen. She had been here to 3 weeks ago with a recurrent basilar pneumonia. Bronchoscopy was negative and cultures were negative. She had a full course of antibiotics and went home. She is being followed by home health. I have bronchoscoped her 3 times in the past and each time she has mucus plugging and nonspecific changes but no obstruction. Cytologies have been negative. Cultures have not grown out any organisms that would explain chronic infections. She is a non-smoker. She does have moderate to severe chronic asthma. 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 Home Medications Medication Instructions Recorded Confirmed Type ALPRAZolam [Xanax] 0.5 mg PO TID PRN 11/29/14 10/24/16 History Allopurinol [Zyloprim] 300 mg PO DAILY 11/29/14 10/24/16 History Glimepiride [Amaryl] 4 mg PO DAILY W/BREAKFAST 11/29/14 10/24/16 History Carbidopa/Levodopa Cr 25-100 1 tablet PO BEDTIME 04/15/15 10/24/16 History [Sinemet Cr 25-100] Citalopram [CeleXA] 40 mg PO DAILY 04/15/15 10/24/16 History Ondansetron Tab [Zofran Tab] 4 mg PO Q4H PRN 04/15/15 10/24/16 History Albuterol Neb [Proventil Neb] 2.5 mg RESP TX RT Q4H PRN #100 02/24/16 10/24/16 Rx nebulization solution Cyanocobalamin (Vitamin B-12) 1,000 mcg IM DIRECTED 07/19/16 10/24/16 History [Vitamin B-12] Polyethylene Glycol Powder 17 gm PO DAILY 10/02/16 10/24/16 History [Miralax] Azithromycin Tab [Zithromax Tab] 250 mg PO QOTHER DAY 10/24/16 10/24/16 History Carisoprodol 350 mg PO TID 10/24/16 10/24/16 History Estradiol [Estrace Tab] 0.5 mg PO DAILY 10/24/16 10/24/16 History Fluconazole 200 mg PO DAILY 10/24/16 10/24/16 History Hydrocodone/Acetaminophen 1 tablet PO Q6HR PRN 10/24/16 10/24/16 History [Hydrocodon-Acetaminophn 10-325] Mirabegron [Myrbetriq] 25 mg PO DAILY 10/24/16 10/24/16 History Potassium Chloride 10 meq PO BID MDD supplement 10/24/16 10/24/16 History Allergies Allergy/AdvReac Type Severity Reaction Status Date / Time Penicillins Allergy RASH Verified 07/17/16 21:13 phenobarbital Allergy RASH Verified 07/17/16 21:13 12 point system: reviewed and no additional remarkable complaints except as stated - Constitutional Constitutional: Present: fever(s) - Cardiovascular Cardiovascular: Present: dyspnea, dyspnea on exertion - Respiratory Respiratory: Present: cough, dyspnea, dyspnea on exertion, wheezing, change in phlegm color - Gastrointestinal Gastrointestinal: Present: other (Poor appetite) - Musculoskeletal Musculoskeletal: Present: back pain, myalgias Exam (Pulmonay) H&P - Constitutional Vitals: Period Temp Pulse Resp BP Sys/Melendez Pulse Ox Last 24 Hr 82-88 18-22 92-96 Exam: She is afebrile here. Pupils react to light. Throat is clear. Neck supple no bruits. Chest reveals some rhonchi in the bases bilaterally. Heart normal rate and rhythm no murmurs. Abdomen soft nontender no masses. Extremities no clubbing cyanosis or edema. Calves nontender. Medical,Surgical,& Family Hx - Medical History Cardio: History of: Hypertension Psychological: History of: Anxiety Disorders No history of: Behavior Problems, Bipolar Disorder, Depression, Psychiatric/ Substance Abuse Tx, Schizophrenia, Violent Behavior, Psychiatric Problems Neurology: No history of: Seizures HEENT: History of: Ear Problem (hard of hearing), Eye Problem (cataract surgery) No history of: Dental Problems Endocrine: History of: Diabetes Mellitus (NIDDM) No history of: Adrenal Disease, Diabetes Mellitus (IDDM), Thyroid Disorder, Endocrine Cancer, Endocrine Problems Rheumatology: History of;: Gout Respiratory: History of: Asthma, Bronchitis, COPD, Obstructive Sleep Apnea, Pneumonia Genitourinary: History of: Bladder Problem (incontient episodes), Recurring Urinary Tract Infections Gastrointestinal: History of: GERD, Hemorrhoids No history of: Gastrointestinal Bleed, Liver Problems, GI Problems Musculoskeletal: History of: Back/Neck Problems (chronic back pain), Musculoskeletal Problems (arthritis) No history of: Amputation Hematology: No history of: Anemia, Blood Transfusion Reaction, Bleeding Problems, Clotting Problems, Sickle Cell Disease, Hematologic Cancer, Blood Disorders Other: No history of: Anesthesia Reactions, Eczema, HIV - Surgical History Cardiac Surgeries: Patient Denies: Femoral-Popliteal Bypass Graft, Cardiac Catheterization, Cardiac Surgery, Carotid Endarterectomy, Internal Defibrillator, Vascular Access Devices Thoracic Surgeries: Patient denies;: Kidney (Renal Surgery), Lithotripsy, Nephrectomy, Organ Transplant, Lobectomy Neurologic Surgeries: Patient denies: Neurologic Surgery HEENT Surgeries: Surgical HX of: Eye Surgery (retinal surgery) Patient denies: Carotid Endarterectomy, Thyroid Surgery, Tonsilectomy & Adenoidectomy Abdominal Surgeries: Surgical HX of: Abdominal Surgery, Appendectomy, Cholecystectomy, Colonoscopy, EGD Patient denies: Gastric Bypass Surgery, Hernia Repair, Splenectomy Reproductive Surgeries: Surgical HX of;: Hysterectomy Patient denies;: Cystoscopy, Genitourinary Surgery Orthopedic Surgeries: Surgical HX of;: Orthopedic Surgery (rotator cuff, carpal tunnel release), Spinal Surgery (lumbar disc surgery) Patient denies;: Implanted Devices, Total Hip Replacement, Total Knee Replacement - Family History Family History: Reports;: Family Cancer (sister,brother), Family Diabetes ( daughter), Family Heart Disease (mother), Family Stroke (son) Denies;: Family Anesthesia Reaction, Family Hypertension, Family Psychiatric Problems - Social History Smoking Status: Never smoker Frequency of Alcohol Use: None Type of Drug Use: None Results - Labs CBC & BMP: 10/24/16 14:24 10/24/16 14:24 Lab Results: I have reviewed the past 24 hour labs - Diagnostic Findings Procedure: Chest x-ray: image reviewed by me (Right lower lobe infiltrate.), CT - chest: image reviewed by me (No emboli. Bibasilar posterior atelectatic infiltrates. Consistent with bronchopneumonia.)
--- NOTE | 2016-10-24 17:30 | EKG Report ---
Stationary ECG Study [facility] Test Date: 10/24/2016 5:31:19 PM Pat Name: ABDIRIZAK BOSE Department: Room: 223 Gender: F Breakdown Person: KARL NAZARIO : 1945 Requested by: John Montanez Order Number: [id number] Reading MD: HEATHER MCFADDEN Intervals [place] Rate: 81 P: 40 OR: 141 QRS: -40 QRSD: 94 T: 17 QT: 375 QTc: 412 Interpretive Statements SINUS RHYTHM WITH SINUS ARRHYTHMIA LEFT AXIS DEVIATION ST ELEVTION AND MODERATE T-WAVE ABNORMALITY, CONSIDER ACUTE ANTEROLATERAL ISCHEMIA VS EARLY REPOLARIZATION Electronically Signed On 10-26-16 14:07:55 CDT by HEATHER MCFADDEN [email or web address]
[2016-10-24] MEDS: INSULIN LISPRO 100 UNIT/ML SUBCUT SCH ×2 (17:50→21:35)
[2016-10-24] MEDS: LEVOFLOXACIN INJ 500 MG in PREMIX 1 EACH IV SCH (17:53)
[2016-10-24] MEDS: SODIUM CHLORIDE 0.9% 1,000 ML IV SCH (17:56)
[2016-10-24] MEDS: AZTREONAM 1,000 MG in SODIUM CHLORIDE 0.9% 100 ML IV SCH (21:29)
[2016-10-25] MEDS: ALBUTEROL/IPRATROPIUM 3 ML NEB RESP TX SCH ×6 (00:15→21:23)
[2016-10-25 05:38] LABS: Basophils % 0.2 % (0.0-0.8); Hematocrit 30.5 VOL% (35.7-47.0); Immature Granulocytes % 5.2 %; Immature Granulocytes Absolute 0.28 #; Lymphocytes # 0.6 10*3/uL (1.4-4.0); Lymphocytes % 11.1 % (21.3-54.2); Mean Corpuscular HGB Conc 32.8 GM/DL (32-36); Mean Corpuscular Hemoglobin 28 PG (27-34); Mean Corpuscular Volume 85.9 FL (87-102); Mean Platelet Volume 9.8 FL (9.6-12.0); Monocytes # 0.1 10*3/uL (0.11-0.8); NRBC # 0.04 10*3/uL; Neutrophils # 4.4 10*3/uL (1.4-7.4); Neutrophils % 81.5 % (38.7-73.9); Platelet Count 291 T/CUMM (130-400); Red Blood Count 3.55 MC/CUMM (3.8-5.5); Red Cell Distribution Width 15.1 % (9.3-17.3); White Blood Count 5.4 T/CUMM (4-12)
[2016-10-25 06:03] LABS: Calcium 8.9 MG/DL (8.5-10.1); Osmolality,Calculated 280.5 MOS/KG (273-304); Potassium 5.5 MMOL/L (3.5-5.1)
[2016-10-25 06:05] LABS: Band Neutrophils 6 % (0-10); Lymphocytes 12 % (20-55); Nucleated Red Blood Cells 1 (0-5); Segmented Neutrophils 80 % (50-85); Total Cells Counted 100
[2016-10-25 06:06] LABS: Hypochromasia 1+; Microcytosis 1+
[2016-10-25] MEDS: AZTREONAM 1,000 MG in SODIUM CHLORIDE 0.9% 100 ML IV SCH ×3 (06:40→22:06)
[2016-10-25] MEDS: methylPREDNISolone SOD SUC 125 MG/2 ML VIAL IV SCH ×3 (06:40→22:04)
--- NOTE | 2016-10-25 08:36 | Pulmonology Progress Note ---
Pulmonary - PN: Subj Interval history: This 71-year-old white female is admitted once again with bilateral pneumonias. Will check immune system to see if she has an immune deficiency. Plan bronchoscopy tomorrow. Cultures in the past have been either negative or just showing bacterial pneumonias. Exam (Progress Note) - Constitutional Vitals: Period Temp Pulse Resp BP Sys/Melendez Pulse Ox Last 24 Hr 97.0 F-97.9 F 73-94 18-22 131-147/65-78 86-97 Exam: Patient's alert oriented. Vital signs normal. Pupils react to light. Throat is clear. Neck supple no bruits. Chest reveals some bilateral rhonchi. Heart normal rate rhythm no murmurs. Abdomen soft nontender no masses. Extremities no clubbing cyanosis or edema. Calves nontender. Results - Labs CBC & BMP: 10/25/16 05:09 10/25/16 05:09 Lab Results: I have reviewed the past 24 hour labs Assessment and Plan (1) Oxygen dependent Status: Acute Assessment and plan: Patient uses oxygen at home especially at night. She has sleep hypopnea but does not require CPAP. 10/25/2016 O2 sats look good. Current Visit: No (2) Pneumonia Status: Acute Assessment and plan: She has had frequent episodes of pneumonia, usually in different lobes. This time it seems to be both lower lobes posteriorly. This is concerning for underlying lung disease or an immune disorder as a cause of this. We know that she has chronic asthma and mucous plugging I think this is likely the cause. I had put her on Zithromax much as we would do for bronchiectasis to see if we could decrease the number of infections. She is only been on it a week or so so I do not think it has had a full trial. 10/25/2016 bibasilar pneumonia. Plan for bronchoscopy tomorrow. Current Visit: No (3) Severe persistent chronic asthma with acute exacerbation Status: Acute Assessment and plan: Treat with steroids and bronchodilators. She has not grown out any Aspergillus or anything of that sort from bronchoscopy before 10/25/2016 continuing empiric steroids and bronchodilators. Current Visit: No (4) Diabetes mellitus Status: Chronic Assessment and plan: Glucoses were elevated. Sliding scale insulin indicated. 10/25/2016 glucoses remain elevated. Increase sliding scale. She is on steroids. Current Visit: No
[2016-10-25 09:04] LABS: INR 1.3; PT Patient Result 13.4 SECS; Partial Thromboplastin Time 28.4 SECS (0-40)
[2016-10-25 09:17] LABS: Immunoglobulin A 189 MG/DL (70-400); Immunoglobulin G 919 MG/DL (700-1600); Immunoglobulin M 64 MG/DL (40-230)
--- NOTE | 2016-10-25 09:37 | Hospitalist Progress Note ---
Assessment and Plan (1) Hypoxia Status: Acute Assessment and plan: 2/2 recurrence of bilateral pneumonia Now down to 2L O2 Current Visit: No (2) Oxygen dependent Status: Acute Current Visit: No (3) Severe persistent chronic asthma with acute exacerbation Status: Acute Assessment and plan: duonebs, steroids Current Visit: No (4) Diabetes mellitus Status: Chronic Assessment and plan: On steroids SSI Adding NPH BID today, will titrate as appropriate Current Visit: No (5) Acute respiratory failure with hypoxia Status: Acute Assessment and plan: On admission oxygen saturation down to 54% with no supplemental oxygen Current Visit: No (6) Pneumonia Status: Acute Assessment and plan: Pulmonary managing Recurrent bilateral pneumonia Plan is for bronch tomorrow Added mucinex Current Visit: No Qualifiers: (7) Elevated troponin Status: Acute Assessment and plan: Downtrending Denies chest pain CT chest negative for PE Current Visit: Yes (8) Hyperkalemia Status: Acute Assessment and plan: kayexelate today Current Visit: Yes Hospitalist: Subjective Interval history: No acute events overnight. Patient feels better today, still with some sob and cough. Pain associated with cough. Requesting miralax. Exam - Constitutional Vitals: Period Temp Pulse Resp BP Sys/Melendez Pulse Ox Last 24 Hr 97.0 F-97.9 F 73-94 18-22 131-147/65-78 86-97 General appearance: over weight - Head Head exam: Present: normocephalic, atraumatic - Eye Eye exam: Present: EOMI Pupils: Present: LELIA - ENT ENT exam: Present: normal exam - Neck Neck exam: Present: normal inspection - Respiratory Respiratory exam: Present: decreased breath sounds, wheezes - Cardiovascular Cardiovascular exam: Present: regular rate and rhythm - GI/Abdominal GI/Abdominal exam: Present: normal bowel sounds, soft. Absent: tenderness - Extremities Exam Extremities exam: Present: normal inspection - Back Exam Back exam: Present: normal inspection - Neurological Exam Neurological exam: Present: alert, oriented X3 - Psychiatric Psychiatric exam: Present: normal affect, normal mood - Skin Skin exam: Present: warm, intact Results - Labs CBC & BMP: 10/25/16 05:09 10/25/16 05:09
[2016-10-25] MEDS ORDERED: SODIUM POLYSTYRENE SULFATE 15 GM/60 ML BOTTLE PO STA (09:46)
[2016-10-25] MEDS: CITALOPRAM 40 MG TABLET PO SCH (09:49)
[2016-10-25] MEDS: ALLOPURINOL 300 MG TABLET PO SCH (09:50)
[2016-10-25] MEDS: PANTOPRAZOLE 40 MG TABLET PO SCH (09:50)
[2016-10-25] MEDS: guaiFENesin/DM ER 600-30 MG TABLET PO SCH ×2 (09:54→22:00)
[2016-10-25] MEDS: POLYETHYLENE GLYCOL POWDER 17 GM PACK PO SCH (09:54)
[2016-10-25 10:05] LABS: Hepatitis A Ab IgM Result Negative (Negative); Hepatitis B Core IgM Result Negative (Negative); Hepatitis B Surface Ag Quant < 0.10 Index; Hepatitis B Surface Ag Result Negative (Negative); Hepatitis C Virus Ab Quant < 0.02 Index; Hepatitis C Virus Ab Result Negative (Negative)
[2016-10-25] MEDS: SODIUM CHLORIDE 0.9% 1,000 ML IV SCH (10:36)
[2016-10-25] MEDS: INSULIN LISPRO 100 UNIT/ML SUBCUT SCH ×4 (10:38→22:00)
[2016-10-25] MEDS: ENOXAPARIN 40 MG/0.4 ML SYRINGE SUBCUT SCH (13:13)
[2016-10-25] MEDS: CARISOPRODOL 350 MG TABLET PO SCH ×2 (14:33→22:00)
[2016-10-25] MEDS ORDERED: INSULIN NPH 100 UNIT/ML SUBCUT SCH (16:30)
[2016-10-25] MEDS: LEVOFLOXACIN INJ 500 MG in PREMIX 1 EACH IV SCH (17:32)
[2016-10-25] MEDS: INSULIN NPH 100 UNIT/ML SUBCUT SCH (17:33)
[2016-10-25] MEDS: MORPHINE 2 MG/1 ML SYRINGE IV PRN ×2 (17:46→22:01)
[2016-10-25] MEDS: BENZONATATE 100 MG CAPSULE PO PRN (22:00)
[2016-10-25] MEDS: CARBIDOPA/LEVODOPA CR 25-100 MG TABLET PO SCH (22:00)
[2016-10-26] MEDS: ALBUTEROL/IPRATROPIUM 3 ML NEB RESP TX SCH ×7 (00:37→23:16)
[2016-10-26] MEDS: methylPREDNISolone SOD SUC 125 MG/2 ML VIAL IV SCH ×3 (06:12→22:09)
[2016-10-26] MEDS: AZTREONAM 1,000 MG in SODIUM CHLORIDE 0.9% 100 ML IV SCH ×3 (06:12→22:09)
[2016-10-26 06:28] LABS: Basophils % 0.1 % (0.0-0.8); Hematocrit 29.8 VOL% (35.7-47.0); Hemoglobin 9.4 GM/DL (12.0-16.0); Immature Granulocytes Absolute 0.44 #; Lymphocytes # 0.6 10*3/uL (1.4-4.0); Lymphocytes % 6.4 % (21.3-54.2); Mean Corpuscular HGB Conc 31.5 GM/DL (32-36); Mean Corpuscular Hemoglobin 27 PG (27-34); Mean Corpuscular Volume 86.9 FL (87-102); Mean Platelet Volume 9.8 FL (9.6-12.0); Monocytes # 0.3 10*3/uL (0.11-0.8); Monocytes % 3.9 % (1.7-12.7); NRBC # 0.05 10*3/uL; Neutrophils # 7.5 10*3/uL (1.4-7.4); Neutrophils % 84.6 % (38.7-73.9); Platelet Count 291 T/CUMM (130-400); Red Blood Count 3.43 MC/CUMM (3.8-5.5); Red Cell Distribution Width 15.1 % (9.3-17.3); White Blood Count 8.8 T/CUMM (4-12)
[2016-10-26 06:58] LABS: Calcium 8.6 MG/DL (8.5-10.1); Magnesium 1.9 MG/DL (1.8-2.4); Potassium 4.3 MMOL/L (3.5-5.1)
[2016-10-26] MEDS ORDERED: MIDAZOLAM 2 MG/2 ML VIAL ONE (07:00)
[2016-10-26] MEDS ORDERED: PROMETHAZINE 25 MG/1 ML VIAL IM ONE (07:00)
[2016-10-26] MEDS ORDERED: MEPERIDINE 50 MG/1 ML VIAL IM ONE (07:00)
[2016-10-26] MEDS ORDERED: MIDAZOLAM 2 MG/2 ML VIAL IV ONE (07:30)
[2016-10-26] MEDS ORDERED: LIDOCAINE 1% 20 ML VIAL MISC INJ ONE (07:30)
--- NOTE | 2016-10-26 07:57 | Pulmonology Progress Note ---
Pulmonary - PN: Subj Interval history: This 71-year-old white female is admitted once again with bilateral pneumonias. Will check immune system to see if she has an immune deficiency. Plan bronchoscopy tomorrow. Cultures in the past have been either negative or just showing bacterial pneumonias. 10/26/2016 patient feeling a little better. Should be ready for bronchoscopy this morning. Her immunoglobulin levels IgG IgA and IgM are all normal. The locations of her recurrent pneumonias are suggestive of aspiration. They are inferior and posterior. Needs esophageal evaluation. Exam (Progress Note) - Constitutional Vitals: Period Temp Pulse Resp BP Sys/Melendez Pulse Ox Last 24 Hr 96.3 F-97.8 F 65-88 12-22 106-192/61-91 85-98 Exam: Patient's alert oriented. Vital signs normal. Pupils react to light. Throat is clear. Neck supple no bruits. Chest reveals some bilateral rhonchi. Heart normal rate rhythm no murmurs. Abdomen soft nontender no masses. Extremities no clubbing cyanosis or edema. Calves nontender. Little change from yesterday. Results - Labs CBC & BMP: 10/26/16 06:10 10/26/16 06:09 Lab Results: I have reviewed the past 24 hour labs Assessment and Plan (1) Oxygen dependent Status: Acute Assessment and plan: Patient uses oxygen at home especially at night. She has sleep hypopnea but does not require CPAP. 10/25/2016 O2 sats look good. 10/26/2016 continuing low flow nasal oxygen. Current Visit: No (2) Pneumonia Status: Acute Assessment and plan: She has had frequent episodes of pneumonia, usually in different lobes. This time it seems to be both lower lobes posteriorly. This is concerning for underlying lung disease or an immune disorder as a cause of this. We know that she has chronic asthma and mucous plugging I think this is likely the cause. I had put her on Zithromax much as we would do for bronchiectasis to see if we could decrease the number of infections. She is only been on it a week or so so I do not think it has had a full trial. 10/25/2016 bibasilar pneumonia. Plan for bronchoscopy tomorrow. 10/26/2016 recurrent basilar pneumonia. This time in both lower lobes posteriorly. I am concerned about possible aspiration. Current Visit: No (3) Severe persistent chronic asthma with acute exacerbation Status: Acute Assessment and plan: Treat with steroids and bronchodilators. She has not grown out any Aspergillus or anything of that sort from bronchoscopy before 10/25/2016 continuing empiric steroids and bronchodilators. 10/26/2016 she is better. Less bronchospasm. Current Visit: No (4) Diabetes mellitus Status: Chronic Assessment and plan: Glucoses were elevated. Sliding scale insulin indicated. 10/25/2016 glucoses remain elevated. Increase sliding scale. She is on steroids. 10/26/2016 blood sugars are little high. Defer to primary service. Current Visit: No
--- NOTE | 2016-10-26 08:02 | Operative Note ---
Date of procedure: 10/26/16 (Fiberoptic bronchoscopy with brushings both lower lobes) Pre-op diagnosis: Recurrent lower lobe pneumonia's, rule out granulomatous disease or aspirat Post-op diagnosis: same Procedure: The patient was given preoperative medications on the palacio and transported to the bronchoscopy suite. After an appropriate timeout to be sure we were dealing with Alana Foster, she was topically anesthetized in the nose and nasopharynx with Xylocaine. 3 L of nasal oxygen placed in the left naris. 2 mg of Versed given intravenously to the point of sedation. The fiberoptic bronchoscope was introduced via the right naris. The vocal cords were identified and noted to function normally with phonation. After further topical anesthesia the trachea was entered. There were retained mucopurulent secretions in both sides draping across the joel into the trachea. Using saline irrigation these were removed and sent for cultures. Distally there was some bronchial wall edema. There was narrowing of the superior segment of the left lower lobe however I was able to easily get brushes into it. There were no visible lesions there. We obtained brushings from the superior segment left lower lobe, lateral basilar segment of the left lower lobe, then on the right side we obtained superior segment brushings and lateral basilar segment brushings as well. Bronchial washings were obtained again. There were no significant episodes of bleeding. The bronchoscope was removed. Patient returned to her room in stable condition. Again the location of these infiltrates are suggestive of aspiration. Anesthesia: conscious sedation Surgeon / Physician: Xavier Frank Estimated blood loss: none Specimens: other (Brushings superior segment left lower lobe, lateral basilar left lower lobe, superior segment right lower lobe, lateral basilar right lower lobe. Bronchial washings bilateral.) Condition: stable Disposition: floor Results - Labs CBC & BMP: 10/26/16 06:10 10/26/16 06:09 Discharge Plan - Discharge Medications No Action Allopurinol [Zyloprim] 300 mg PO DAILY ALPRAZolam [Xanax] 0.5 mg PO TID PRN PRN Reason: Anxiety Glimepiride [Amaryl] 4 mg PO DAILY W/BREAKFAST Ondansetron Tab [Zofran Tab] 4 mg PO Q4H PRN PRN Reason: Nausea Citalopram [CeleXA] 40 mg PO DAILY Carbidopa/Levodopa Cr 25-100 [Sinemet Cr 25-100] 1 tablet PO BEDTIME Albuterol Neb [Proventil Neb] 2.5 mg RESP TX RT Q4H PRN #100 nebulization solution PRN Reason: Shortness Of Breath/Wheezing Hydrocodone/Acetaminophen [Hydrocodon-Acetaminophn 10-325] 1 tablet PO Q6HR PRN PRN Reason: Pain Mirabegron [Myrbetriq] 25 mg PO DAILY Estradiol [Estrace Tab] 0.5 mg PO DAILY Carisoprodol 350 mg PO TID Cyanocobalamin (Vitamin B-12) [Vitamin B-12] 1,000 mcg IM DIRECTED Polyethylene Glycol Powder [Miralax] 17 gm PO DAILY Fluconazole 200 mg PO DAILY Azithromycin Tab [Zithromax Tab] 250 mg PO QOTHER DAY Potassium Chloride 10 meq PO BID MDD supplement - Follow Up or Referral - Forms/Instructions
--- NOTE | 2016-10-26 09:21 | Physician Query Form ---
CLICK EDIT DOCUMENT TO SELECT QUERY ANSWER --> OK --> SIGN Natalie Logan RN Clinical Data Software Engineer W) [phone] (f) [phone] [email or web address] PROVIDERS: Make your selection(s) from the choices in EACH section by typing an "x" and enter comments in the comment section. Please use your independent medical judgment in providing your response. This request does not imply that any particular answer is desired or expected. CLINICAL INDICATORS: (Providers should not edit this section) Based on documentation of "pneumonia". Bronchoscope reports states "the location of these infiltrates are suggestive of aspiration". Pt. treated with IV Azactam and Levaquin. Community Acquired and Healthcare Acquired are both unspecified terms and require further specificity. Based on the above, could you please clarify further specificity regarding the type of pneumonia you are treating (even if specific organism may not be known) ? (x ) Aspiration pneumonia ( ) Gram negative pneumonia ( ) Gram positive pneumonia ( ) Bacterial pneumonia due to, please specify organism (if known): ( ) Pneumonia with Influenza ( ) Viral pneumonia ( ) Post procedural ( ) HIV associated pneumonia ( ) Radiation Pneumonitis ( ) Pneumonia due to, please specify: ( ) Clinically unable to determine ( ) Other, please specify: COMMENTS: PLEASE ALSO DOCUMENT RESPONSE IN PROGRESS NOTES AND/OR DISCHARGE SUMMARY Use of terms such as suspected, likely, or probable (associated with a specific diagnosis that is being evaluated, monitored, or treated as if it exists) are acceptable and can be restated in the discharge summary if not ruled out. MTDD
[2016-10-26] MEDS: CARISOPRODOL 350 MG TABLET PO SCH ×3 (10:19→20:58)
[2016-10-26] MEDS: ALLOPURINOL 300 MG TABLET PO SCH (10:19)
[2016-10-26] MEDS: BENZONATATE 100 MG CAPSULE PO PRN ×2 (10:19→20:59)
[2016-10-26] MEDS: CITALOPRAM 40 MG TABLET PO SCH (10:19)
[2016-10-26] MEDS: guaiFENesin/DM ER 600-30 MG TABLET PO SCH ×2 (10:19→20:59)
[2016-10-26] MEDS: PANTOPRAZOLE 40 MG TABLET PO SCH (10:19)
[2016-10-26] MEDS: INSULIN LISPRO 100 UNIT/ML SUBCUT SCH ×4 (10:20→20:59)
[2016-10-26] MEDS: INSULIN NPH 100 UNIT/ML SUBCUT SCH ×2 (10:23→16:39)
[2016-10-26] MEDS: POLYETHYLENE GLYCOL POWDER 17 GM PACK PO SCH ×2 (10:35→20:58)
--- NOTE | 2016-10-26 10:39 | Gastrointestinal Consult Note ---
Assessment and Plan (1) Dysphagia Status: Acute Assessment and plan: 10/26-reports of long-term dysphagia to pills, solids and liquids with choking episodes at times. Chronic cough at bedtime. Report of worsening GERD. Prior endoscopy with questionable dilation in the past, unable to locate records. Consult speech therapy for bedside swallow later this afternoon after patient is outside of the effects of anesthesia. Plan an addendum to followed by Dr. Castro. Current Visit: Yes History of Present Illness Chief complaint: Dysphagia History of present illness: Ms. Foster is a 71 year old female who was admitted to the hospital with complaints of shortness of breath. Patient is still under the effects of sedation following her FOB however daughter is at bedside and provides historical information. Information also obtained from chart review. Patient was admitted 2 days ago with increased shortness of breath and cough. She has a history of hypertension, interstitial lung disease, diabetes, asthma, COPD, chronic pain due to arthritis and fibromyalgia. She has had several episodes of pneumonia over the last year with 3-4 inpatient stays for this noted. Patient's daughter states that she is also had some complaints of difficulty swallowing. States that she has difficulty with solids, liquids and pills at times. Denies any regurgitation with ES however states that she does cough a great deal at night and in the mornings. She is also been complaining of increasingly worse in reflux symptoms however does not take something routinely for this. She denies any pain with swallowing or epigastric pain. Denies any melena or hematochezia. Denies any nausea or vomiting. She had FOB this morning with findings of questionable aspiration pneumonia. She has had endoscopy done in the past however unable to locate records in our facility database regarding this. She is unable to recall where and when this was done as well as findings. Last colonoscopy was done in 2014 with findings of polyps (tubular adenoma) and hemorrhoids. Patient denies any weight loss. She denies any NSAID use and does not take anticoagulants, however currently on Lovenox injections. Home Medications Medication Instructions Recorded Confirmed Type ALPRAZolam [Xanax] 0.5 mg PO TID PRN 11/29/14 10/24/16 History Allopurinol [Zyloprim] 300 mg PO DAILY 11/29/14 10/24/16 History Glimepiride [Amaryl] 4 mg PO DAILY W/BREAKFAST 11/29/14 10/24/16 History Carbidopa/Levodopa Cr 25-100 1 tablet PO BEDTIME 04/15/15 10/24/16 History [Sinemet Cr 25-100] Citalopram [CeleXA] 40 mg PO DAILY 04/15/15 10/24/16 History Ondansetron Tab [Zofran Tab] 4 mg PO Q4H PRN 04/15/15 10/24/16 History Albuterol Neb [Proventil Neb] 2.5 mg RESP TX RT Q4H PRN #100 02/24/16 10/24/16 Rx nebulization solution Cyanocobalamin (Vitamin B-12) 1,000 mcg IM DIRECTED 07/19/16 10/24/16 History [Vitamin B-12] Polyethylene Glycol Powder 17 gm PO DAILY 10/02/16 10/24/16 History [Miralax] Azithromycin Tab [Zithromax Tab] 250 mg PO QOTHER DAY 10/24/16 10/24/16 History Carisoprodol 350 mg PO TID 10/24/16 10/24/16 History Estradiol [Estrace Tab] 0.5 mg PO DAILY 10/24/16 10/24/16 History Fluconazole 200 mg PO DAILY 10/24/16 10/24/16 History Hydrocodone/Acetaminophen 1 tablet PO Q6HR PRN 10/24/16 10/24/16 History [Hydrocodon-Acetaminophn 10-325] Mirabegron [Myrbetriq] 25 mg PO DAILY 10/24/16 10/24/16 History Potassium Chloride 10 meq PO BID MDD supplement 10/24/16 10/24/16 History Allergies Allergy/AdvReac Type Severity Reaction Status Date / Time Penicillins Allergy RASH Verified 07/17/16 21:13 phenobarbital Allergy RASH Verified 07/17/16 21:13 Medical,Surgical,& Family Hx - Medical History Cardio: History of: Hypertension Psychological: History of: Anxiety Disorders No history of: Behavior Problems, Bipolar Disorder, Depression, Psychiatric/ Substance Abuse Tx, Schizophrenia, Violent Behavior, Psychiatric Problems Neurology: No history of: Seizures HEENT: History of: Ear Problem (hard of hearing), Eye Problem (cataract surgery) No history of: Dental Problems Endocrine: History of: Diabetes Mellitus (NIDDM) No history of: Adrenal Disease, Diabetes Mellitus (IDDM), Thyroid Disorder, Endocrine Cancer, Endocrine Problems Rheumatology: History of;: Gout Respiratory: History of: Asthma, Bronchitis, COPD, Obstructive Sleep Apnea, Pneumonia Genitourinary: History of: Bladder Problem (incontient episodes), Recurring Urinary Tract Infections Gastrointestinal: History of: GERD, Hemorrhoids No history of: Gastrointestinal Bleed, Liver Problems, GI Problems Musculoskeletal: History of: Back/Neck Problems (chronic back pain), Musculoskeletal Problems (arthritis) No history of: Amputation Hematology: No history of: Anemia, Blood Transfusion Reaction, Bleeding Problems, Clotting Problems, Sickle Cell Disease, Hematologic Cancer, Blood Disorders Other: No history of: Anesthesia Reactions, Eczema, HIV - Surgical History Cardiac Surgeries: Patient Denies: Femoral-Popliteal Bypass Graft, Cardiac Catheterization, Cardiac Surgery, Carotid Endarterectomy, Internal Defibrillator, Vascular Access Devices Thoracic Surgeries: Patient denies;: Kidney (Renal Surgery), Lithotripsy, Nephrectomy, Organ Transplant, Lobectomy Neurologic Surgeries: Patient denies: Neurologic Surgery HEENT Surgeries: Surgical HX of: Eye Surgery (retinal surgery) Patient denies: Carotid Endarterectomy, Thyroid Surgery, Tonsilectomy & Adenoidectomy Abdominal Surgeries: Surgical HX of: Abdominal Surgery, Appendectomy, Cholecystectomy, Colonoscopy, EGD Patient denies: Gastric Bypass Surgery, Hernia Repair, Splenectomy Reproductive Surgeries: Surgical HX of;: Hysterectomy Patient denies;: Cystoscopy, Genitourinary Surgery Orthopedic Surgeries: Surgical HX of;: Orthopedic Surgery (rotator cuff, carpal tunnel release), Spinal Surgery (lumbar disc surgery) Patient denies;: Implanted Devices, Total Hip Replacement, Total Knee Replacement - Family History Family History: Reports;: Family Cancer (sister,brother), Family Diabetes ( daughter), Family Heart Disease (mother), Family Stroke (son) Denies;: Family Anesthesia Reaction, Family Hypertension, Family Psychiatric Problems - Social History Smoking Status: Never smoker Frequency of Alcohol Use: None Type of Drug Use: None ROS unobtainable: other (Post FOB sedation) Exam - Constitutional Vitals: Period Temp Pulse Resp BP Sys/Melendez Pulse Ox Last 24 Hr 96.3 F-97.8 F 65-99 12-26 106-192/61-91 85-98 General appearance: no acute distress, over weight - Head Head exam: Present: normal inspection, normocephalic - Eye Eye exam: Present: other (Lids and conjunctive are unremarkable). Absent: scleral icterus - ENT ENT exam: Present: normal exam, normal oropharynx - Neck Neck exam: Present: normal inspection - Respiratory Respiratory exam: Present: clear to auscultation bilaterally. Absent: rales, rhonchi, wheezes - Cardiovascular Cardiovascular exam: Present: regular rate and rhythm. Absent: diastolic murmur , JVD, systolic murmur - GI/Abdominal GI/Abdominal exam: Present: normal bowel sounds, soft. Absent: ascites, distended, mass, organomegaly, tenderness - Extremities Exam Extremities exam: Present: normal inspection, full ROM - Back Exam Back exam: Present: normal inspection - Neurological Exam Neurological exam: Present: alert, altered - Psychiatric Psychiatric exam: Present: other - Skin Skin exam: Present: normal color, warm, dry Results - Labs CBC & BMP: 10/26/16 06:10 10/26/16 06:09 Lab Results: I have reviewed the past 24 hour labs
[2016-10-26] MEDS: ENOXAPARIN 40 MG/0.4 ML SYRINGE SUBCUT SCH (14:39)
--- NOTE | 2016-10-26 15:44 | Hospitalist Progress Note ---
Assessment and Plan (1) Pneumonia Status: Acute Assessment and plan: With resultant hypoxia. S/P Bronch this morning. Continuing treating with Aztreonam and Levo for now. GI consulted for evaluation of possible reflux/ stricture that may be contributing to a possible aspiration picture. Will continue with PPI and will likely undergo EGD on Saturday once pulmonary issues stabilized. Additionally, will obtain a swallow eval for further work-up as well. Current Visit: No Qualifiers: (2) COPD exacerbation Status: Acute Assessment and plan: Treatment as noted above. Current Visit: No (3) Hypoxia Status: Acute Assessment and plan: As above Current Visit: No (4) Oxygen dependent Status: Acute Assessment and plan: As above Current Visit: No (5) Diabetes mellitus Status: Chronic Assessment and plan: On solumedrol which is likely exacerbating hyperglycemia. On NPH. Will titrate as needed. Current Visit: No (6) Debility, unspecified Status: Acute Assessment and plan: PT/OT when stable from a pulmonary standpoint. Current Visit: No (7) Elevated troponin Status: Acute Assessment and plan: No current chestpain. Trending down. Current Visit: Yes Hospitalist: Subjective Interval history: No acute issues overnight. Still with significant cough and dyspnea. Daughter at bedside and requested a GI evaluation due to concerns for chronic reflux that may contributing to symptoms. C/S placed by Pulm. Will also obtain a swallow eval to determine if overt aspiration (outside of severe reflux) may be playing a role. O2 supplementation improved but still requiring 3L (down from 5L ). BP has spiked to 171/85 but currently improved without direct intervention. We continue treatment for bacterial pneumonia and bronchitis with Aztreonam, Levo and Solumedrol. Continue nebs and O2 suppl. to wean as tolerated. Exam - Constitutional Vitals: Period Temp Pulse Resp BP Sys/Melendez Pulse Ox Last 24 Hr 96.3 F-98.9 F 65-99 12-26 106-192/61-91 85-98 Exam: General appearance: over weight - Head Head exam: Present: normocephalic, atraumatic - Eye Eye exam: Present: EOMI - Respiratory Respiratory exam: Present: decreased breath sounds, exp. wheezes - Cardiovascular Cardiovascular exam: Present: regular rate and rhythm - GI/Abdominal GI/Abdominal exam: Present: normal bowel sounds, soft. Absent: tenderness - Extremities Exam Extremities exam: Present: normal inspection - Back Exam Back exam: Present: normal inspection - Neurological Exam Neurological exam: Present: awake and alert - Psychiatric Psychiatric exam: Present: normal affect, normal mood - Skin Skin exam: Present: warm, intact Results - Labs CBC & BMP: 10/26/16 06:10 10/26/16 06:09
[2016-10-26] MEDS: SODIUM CHLORIDE 0.9% 1,000 ML IV SCH ×2 (16:22)
[2016-10-26] MEDS: LEVOFLOXACIN INJ 500 MG in PREMIX 1 EACH IV SCH (16:38)
[2016-10-26] MEDS: CARBIDOPA/LEVODOPA CR 25-100 MG TABLET PO SCH (20:59)
[2016-10-26] MEDS: MORPHINE 2 MG/1 ML SYRINGE IV PRN (20:59)
[2016-10-27] MEDS: ALBUTEROL/IPRATROPIUM 3 ML NEB RESP TX SCH ×6 (03:23→23:50)
[2016-10-27] MEDS: SODIUM CHLORIDE 0.9% 1,000 ML IV SCH (05:49)
[2016-10-27] MEDS: AZTREONAM 1,000 MG in SODIUM CHLORIDE 0.9% 100 ML IV SCH ×3 (05:49→22:48)
[2016-10-27] MEDS: methylPREDNISolone SOD SUC 125 MG/2 ML VIAL IV SCH ×3 (05:50→22:48)
[2016-10-27] MEDS: INSULIN NPH 100 UNIT/ML SUBCUT SCH ×2 (09:19→17:08)
[2016-10-27] MEDS: DOCUSATE SODIUM 100 MG CAPSULE PO PRN (09:31)
[2016-10-27] MEDS: BENZONATATE 100 MG CAPSULE PO PRN ×2 (09:31→21:45)
[2016-10-27] MEDS: ALPRAZolam 0.5 MG TABLET PO PRN ×2 (09:31→21:45)
[2016-10-27] MEDS: CITALOPRAM 40 MG TABLET PO SCH (09:31)
[2016-10-27] MEDS: guaiFENesin/DM ER 600-30 MG TABLET PO SCH ×2 (09:31→21:45)
[2016-10-27] MEDS: ALLOPURINOL 300 MG TABLET PO SCH (09:31)
[2016-10-27] MEDS: POLYETHYLENE GLYCOL POWDER 17 GM PACK PO SCH (09:31)
[2016-10-27] MEDS: CARISOPRODOL 350 MG TABLET PO SCH ×3 (09:31→21:45)
[2016-10-27] MEDS: INSULIN LISPRO 100 UNIT/ML SUBCUT SCH ×4 (09:31→21:44)
[2016-10-27] MEDS: PANTOPRAZOLE 40 MG TABLET PO SCH (09:31)
--- NOTE | 2016-10-27 11:04 | Hospitalist Progress Note ---
Assessment and Plan (1) Pneumonia Status: Acute Assessment and plan: Patient seems to be much improved this morning. Will continue treating with Aztreonam and Levo for now. Pulmonary status has is stabilizing. Will plan for EGD on Saturday to evaluate for possible reflux/stricture that may be contributing to aspiration. Continue PPI. Current Visit: Yes Qualifiers: (2) COPD exacerbation Status: Acute Assessment and plan: Treatment as noted above. Current Visit: Yes (3) Hypoxia Status: Acute Assessment and plan: As above Current Visit: Yes (4) Oxygen dependent Status: Acute Assessment and plan: As above Current Visit: Yes (5) Diabetes mellitus Status: Chronic Assessment and plan: On solumedrol which is likely exacerbating hyperglycemia. Increased NPH to 15 units twice daily. Current Visit: Yes Qualifiers: Diabetes mellitus complication status: with hyperglycemia (6) Debility, unspecified Status: Acute Assessment and plan: PT/OT when stable from a pulmonary standpoint. Current Visit: Yes (7) Elevated troponin Status: Acute Assessment and plan: No current chest pain. Trended down. We will repeat with chest pain or cardiac instability. Current Visit: Yes Hospitalist: Subjective Interval history: No acute events overnight. Patient is much more awake and alert today than compared to yesterday. She reports improvement in her breathing status. She has less wheezing and less effort. She reports that cold ice appears to make any spasms that she may be having much better. She did undergo bronchoscopy on yesterday. Preliminary micro data is unremarkable. Additionally she had a swallow study done that was negative for any evidence of aspiration. GI evaluated her on yesterday and will plan to possibly take her for EGD on Saturday. Will continue the course for treatment of bacterial pneumonia and exacerbation of COPD. Exam - Constitutional Vitals: Period Temp Pulse Resp BP Sys/Melendez Pulse Ox Last 24 Hr 97.1 F-98.9 F 53-123 16-22 125-184/64-102 81-98 Exam: General appearance: over weight - Head Head exam: Present: normocephalic, atraumatic - Eye Eye exam: Present: EOMI - Respiratory Respiratory exam: Present: course breath sounds but moving air well. Very faint exp. wheezes - Cardiovascular Cardiovascular exam: Present: regular rate and rhythm - GI/Abdominal GI/Abdominal exam: Present: normal bowel sounds, soft. Absent: tenderness - Extremities Exam Extremities exam: Present: normal inspection - Back Exam Back exam: Present: normal inspection - Neurological Exam Neurological exam: Present: awake and alert - Psychiatric Psychiatric exam: Present: normal affect, normal mood - Skin Skin exam: Present: warm, intact Results - Labs CBC & BMP: 10/26/16 06:10 10/26/16 06:09
[2016-10-27] MEDS ORDERED: MAGNESIUM CITRATE 300 ML BOTTLE PO ONE (11:20)
[2016-10-27] MEDS: FUROSEMIDE 20 MG/2 ML VIAL IV SCH (12:36)
[2016-10-27 12:44] LABS: Apearance,Urine CLEAR (Clear); Bacteria,Urine Occasional /HPF (Few); Bilirubin,Urine Negative (Negative); Blood, Urine Negative (Negative); Glucose,Urine (UA) 150 mg/dL (Negative); Ketones,Urine Negative (Negative); Mucus,Urine Occasional /LPF (Occasional); Nitrite,Urine Negative (Negative); Protein,Urine Negative; RBC,Urine <1 /HPF (0-4); Squamous Epithelial Cell,Urine Occasional /HPF (0-10); Urine Color Yellow (Yellow); Urine Specific Gravity 1.013 (1.001-1.035); Urine Urobilinogen < 2.0 EU/DL (0.2-1.0); WBC,Urine <1 /HPF (0-6)
[2016-10-27] MEDS: ENOXAPARIN 40 MG/0.4 ML SYRINGE SUBCUT SCH (14:18)
[2016-10-27] MEDS: LEVOFLOXACIN INJ 500 MG in PREMIX 1 EACH IV SCH (17:10)
--- NOTE | 2016-10-27 19:19 | Pulmonology Progress Note ---
Pulmonary - PN: Subj Interval history: 71-year-old female admitted with recurrent bilateral pneumonias. Patient is being treated with broad antibiotics and underwent bronchoscopy yesterday without significant findings and cultures are pending at this time with only growth of normal amy. Today patient states she is feeling improved but continues to have difficulty with expectorating sputum. No other concerns at this time Exam (Progress Note) - Constitutional Vitals: Period Temp Pulse Resp BP Sys/Melendez Pulse Ox Last 24 Hr 97.1 F-98.2 F 53-123 16-24 125-184/57-102 81-98 General appearance: over weight - Head Head exam: Present: normal inspection - Eye Eye exam: Present: EOMI Pupils: Present: LELIA - Neck Neck exam: Present: normal inspection - Respiratory Respiratory exam: Present: rhonchi. Absent: accessory muscle use, rales, wheezes - Cardiovascular Cardiovascular exam: Present: regular rate and rhythm - GI/Abdominal GI/Abdominal exam: Present: normal bowel sounds, soft - Extremities Exam Extremities exam: Present: normal inspection - Neurological Exam Neurological exam: Present: alert, oriented X3 - Psychiatric Psychiatric exam: Present: normal affect - Skin Skin exam: Present: normal color, warm, dry Results - Labs CBC & BMP: 10/26/16 06:10 10/26/16 06:09 Assessment and Plan (1) Pneumonia Status: Acute Assessment and plan: Patient continues to have slow improvement. Her main complaint today is of difficulty with expectorating sputum. Will provide Acapella to be used with nebs in addition to current antibiotics and steroids. Cultures only growing normal amy. Recommend repeat chest x-ray on Saturday. Current Visit: Yes Qualifiers:
[2016-10-27] MEDS: CARBIDOPA/LEVODOPA CR 25-100 MG TABLET PO SCH (21:45)
[2016-10-28] MEDS: ALBUTEROL/IPRATROPIUM 3 ML NEB RESP TX SCH ×6 (03:15→23:47)
[2016-10-28] MEDS: SODIUM CHLORIDE 0.9% 1,000 ML IV SCH (04:00)
[2016-10-28] MEDS: AZTREONAM 1,000 MG in SODIUM CHLORIDE 0.9% 100 ML IV SCH (06:25)
[2016-10-28] MEDS: methylPREDNISolone SOD SUC 125 MG/2 ML VIAL IV SCH ×3 (06:25→22:19)
[2016-10-28] MEDS: POLYETHYLENE GLYCOL POWDER 17 GM PACK PO SCH (09:15)
[2016-10-28] MEDS: FLUCONAZOLE 100 MG TABLET PO SCH (09:18)
[2016-10-28] MEDS: ALLOPURINOL 300 MG TABLET PO SCH (09:18)
[2016-10-28] MEDS: CITALOPRAM 40 MG TABLET PO SCH (09:18)
[2016-10-28] MEDS: ALPRAZolam 0.5 MG TABLET PO PRN ×2 (09:18→21:01)
[2016-10-28] MEDS: BENZONATATE 100 MG CAPSULE PO PRN ×2 (09:18→21:00)
[2016-10-28] MEDS: FUROSEMIDE 20 MG/2 ML VIAL IV SCH (09:18)
[2016-10-28] MEDS: DOCUSATE SODIUM 100 MG CAPSULE PO PRN (09:18)
[2016-10-28] MEDS: CARISOPRODOL 350 MG TABLET PO SCH ×3 (09:18→21:01)
[2016-10-28] MEDS: PANTOPRAZOLE 40 MG TABLET PO SCH (09:18)
[2016-10-28] MEDS: guaiFENesin/DM ER 600-30 MG TABLET PO SCH ×2 (09:18→21:00)
[2016-10-28] MEDS: INSULIN NPH 100 UNIT/ML SUBCUT SCH ×2 (09:19→16:49)
[2016-10-28] MEDS: INSULIN LISPRO 100 UNIT/ML SUBCUT SCH ×4 (09:19→20:59)
--- NOTE | 2016-10-28 13:36 | Hospitalist Progress Note ---
Assessment and Plan (1) Pneumonia Status: Acute Assessment and plan: Continues to improve. Will cut back on antibiotics and d/c Aztreonam. Continue Levo for now. Pulmonary status has is stable. Will plan for EGD on tomorrow to evaluate for possible reflux/stricture that may be contributing to aspiration. Continue PPI. NPO tonight. Current Visit: Yes Qualifiers: (2) COPD exacerbation Status: Acute Assessment and plan: Treatment as noted above. Current Visit: Yes (3) Hypoxia Status: Acute Current Visit: Yes (4) Oxygen dependent Status: Acute Current Visit: Yes (5) Diabetes mellitus Status: Chronic Assessment and plan: On solumedrol which is likely exacerbating hyperglycemia. Increase NPH to 20 units twice daily. Current Visit: Yes Qualifiers: Diabetes mellitus complication status: with hyperglycemia (6) Debility, unspecified Status: Acute Assessment and plan: PT/OT when stable from a pulmonary standpoint. Current Visit: Yes (7) Elevated troponin Status: Acute Assessment and plan: No current chest pain. Trended down. We will repeat with chest pain or cardiac instability. Current Visit: Yes Hospitalist: Subjective Interval history: Patient doing well. No acute events overnight. Doing well with diuresis. Will continue today and then lasix prn. Patient reports breathing much better and cough is much improved. Planning for EGD in the morning. We will continue with current management otherwise. Exam - Constitutional Vitals: Period Temp Pulse Resp BP Sys/Melendez Pulse Ox Last 24 Hr 96.8 F-98.1 F 63-99 18-24 122-169/57-85 87-96 Exam: General appearance: over weight - Head Head exam: Present: normocephalic, atraumatic - Eye Eye exam: Present: EOMI - Respiratory Respiratory exam: Present: course breath sounds but moving air well. Absent: Wheezes - Cardiovascular Cardiovascular exam: Present: regular rate and rhythm - GI/Abdominal GI/Abdominal exam: Present: normal bowel sounds, soft. Absent: tenderness - Extremities Exam Extremities exam: Present: normal inspection - Neurological Exam Neurological exam: Present: awake and alert - Psychiatric Psychiatric exam: Present: normal affect, normal mood Results - Labs CBC & BMP: 10/26/16 06:10 10/26/16 06:09
[2016-10-28] MEDS: ENOXAPARIN 40 MG/0.4 ML SYRINGE SUBCUT SCH (14:21)
[2016-10-28] MEDS: LEVOFLOXACIN INJ 500 MG in PREMIX 1 EACH IV SCH (16:49)
[2016-10-28] MEDS: CARBIDOPA/LEVODOPA CR 25-100 MG TABLET PO SCH (21:01)
[2016-10-29] MEDS: ALBUTEROL/IPRATROPIUM 3 ML NEB RESP TX SCH ×6 (03:50→23:40)
[2016-10-29] MEDS: methylPREDNISolone SOD SUC 125 MG/2 ML VIAL IV SCH (05:38)
--- NOTE | 2016-10-29 07:35 | XRay Report ---
Exam: XR chest 1V Date: 10/29/2016 4:00 AM Comparison: 10/24/2016 Indication: Hypoxia, pneumonia Technique:[Portable AP sitting chest] Findings: Stable cardiomegaly with progressive parenchymal findings at the lung bases with small pleural effusions. Stable mediastinum and osseous structures. Chronic ossific findings in the clavicles. Impression: Progressive bibasilar atelectasis/infiltration with minimally larger small pleural effusions. Stable cardiomegaly. PROCEDURE INTERPRETED AT [facility] DEPARTMENT OF RADIOLOGY Final Report Signed by: Dr. Alexa Ortiz
--- NOTE | 2016-10-29 08:13 | Pulmonology Progress Note ---
Pulmonary - PN: Subj Interval history: This 71-year-old white female is admitted once again with bilateral pneumonias. Will check immune system to see if she has an immune deficiency. Plan bronchoscopy tomorrow. Cultures in the past have been either negative or just showing bacterial pneumonias. 10/26/2016 patient feeling a little better. Should be ready for bronchoscopy this morning. Her immunoglobulin levels IgG IgA and IgM are all normal. The locations of her recurrent pneumonias are suggestive of aspiration. They are inferior and posterior. Needs esophageal evaluation. 10/29/2016 patient feeling better. Cough is less. Should be ready for EGD. Likely she is having problems with reflux and microaspiration. Glucoses are running high. Will reduce Solu-Medrol a bit. Exam (Progress Note) - Constitutional Vitals: Period Temp Pulse Resp BP Sys/Melendez Pulse Ox Last 24 Hr 97.3 F-99.5 F 70-100 18-24 134-169/66-85 90-99 Exam: Patient's alert oriented. Vital signs normal. Pupils react to light. Throat is clear. Neck supple no bruits. Chest reveals some bilateral rhonchi. Heart normal rate rhythm no murmurs. Abdomen soft nontender no masses. Extremities no clubbing cyanosis or edema. Calves nontender. Results - Labs CBC & BMP: 10/26/16 06:10 10/26/16 06:09 Lab Results: I have reviewed the past 24 hour labs - Diagnostic Findings Procedure: Chest x-ray: image reviewed by me (Basilar infiltrates. Little change from before.) Assessment and Plan (1) Oxygen dependent Status: Acute Assessment and plan: Patient uses oxygen at home especially at night. She has sleep hypopnea but does not require CPAP. 10/25/2016 O2 sats look good. 10/26/2016 continuing low flow nasal oxygen. 10/29/2016 tolerating low flow oxygen. Current Visit: Yes (2) Pneumonia Status: Acute Assessment and plan: She has had frequent episodes of pneumonia, usually in different lobes. This time it seems to be both lower lobes posteriorly. This is concerning for underlying lung disease or an immune disorder as a cause of this. We know that she has chronic asthma and mucous plugging I think this is likely the cause. I had put her on Zithromax much as we would do for bronchiectasis to see if we could decrease the number of infections. She is only been on it a week or so so I do not think it has had a full trial. 10/25/2016 bibasilar pneumonia. Plan for bronchoscopy tomorrow. 10/26/2016 recurrent basilar pneumonia. This time in both lower lobes posteriorly. I am concerned about possible aspiration. 10/29/2016 clinically improved. Chest x-ray has not shown any changes as yet. Concerned about aspiration. For GI evaluation. Current Visit: No (3) Severe persistent chronic asthma with acute exacerbation Status: Acute Assessment and plan: Treat with steroids and bronchodilators. She has not grown out any Aspergillus or anything of that sort from bronchoscopy before 10/25/2016 continuing empiric steroids and bronchodilators. 10/26/2016 she is better. Less bronchospasm. 10/29/2016 I do not hear any wheezing today. Current Visit: No (4) Diabetes mellitus Status: Chronic Assessment and plan: Glucoses were elevated. Sliding scale insulin indicated. 10/25/2016 glucoses remain elevated. Increase sliding scale. She is on steroids. 10/26/2016 blood sugars are little high. Defer to primary service. 10/29/2016 glucoses continue to be a little high. I am reducing her steroids. Defer to primary service as far as any change in insulin. Current Visit: Yes Qualifiers: Diabetes mellitus complication status: with hyperglycemia
[2016-10-29] MEDS: guaiFENesin/DM ER 600-30 MG TABLET PO SCH ×2 (08:52→20:57)
[2016-10-29] MEDS: ALLOPURINOL 300 MG TABLET PO SCH (08:52)
[2016-10-29] MEDS: FLUCONAZOLE 100 MG TABLET PO SCH (08:53)
[2016-10-29] MEDS: CITALOPRAM 40 MG TABLET PO SCH (08:53)
[2016-10-29] MEDS: CARISOPRODOL 350 MG TABLET PO SCH ×3 (08:53→20:57)
[2016-10-29] MEDS: PANTOPRAZOLE 40 MG TABLET PO SCH (08:54)
[2016-10-29] MEDS: INSULIN NPH 100 UNIT/ML SUBCUT SCH ×2 (08:55→16:37)
[2016-10-29] MEDS: ENOXAPARIN 40 MG/0.4 ML SYRINGE SUBCUT SCH (08:56)
[2016-10-29] MEDS: INSULIN LISPRO 100 UNIT/ML SUBCUT SCH ×4 (08:56→20:58)
[2016-10-29] MEDS: POLYETHYLENE GLYCOL POWDER 17 GM PACK PO SCH (08:57)
--- NOTE | 2016-10-29 10:32 | Gastrointestinal Progress Note ---
Assessment and Plan (1) Dysphagia Status: Acute Assessment and plan: 10/29-continued dysphagia. Respiratory status improved. Pulmonary feels okay to proceed with EGD at this time. We will tentatively plan for EGD tomorrow. Plan an addendum followed by Dr. Castro. 10/26-reports of long-term dysphagia to pills, solids and liquids with choking episodes at times. Chronic cough at bedtime. Report of worsening GERD. Prior endoscopy with questionable dilation in the past, unable to locate records. Consult speech therapy for bedside swallow later this afternoon after patient is outside of the effects of anesthesia. Plan an addendum to followed by Dr. Castro. Current Visit: Yes Gastroenterology - PN: Subj Interval history: CC: Dysphagia Patient is seen awake and alert doing physical therapy this morning. States she had an uneventful weekend. She states that her breathing has much more improved from admission and she feels like she is able to lie flat at this time without difficulty. She is having continued problems with dysphagia to solids. Denies any nausea or vomiting or abdominal pain. Dr. Frank is reevaluated patient this morning and feels like she is at optimal respiratory status and okay to proceed with EGD at this time. We will plan this tentatively for tomorrow if patient remains stable. Abdomen soft, nontender. ROS: Denies shortness of breath or chest pain. Exam (Progress Note) - Constitutional Vitals: Period Temp Pulse Resp BP Sys/Melendez Pulse Ox Last 24 Hr 97.3 F-99.5 F 69-100 18-24 134-169/66-85 90-99 - Other Additional findings: General appearance: no acute distress, over weight - Head Head exam: Present: normal inspection, normocephalic - Eye Eye exam: Present: other (Lids and conjunctive are unremarkable). Absent: scleral icterus - ENT ENT exam: Present: normal exam, normal oropharynx - Neck Neck exam: Present: normal inspection - Respiratory Respiratory exam: Present: clear to auscultation bilaterally. Absent: rales, rhonchi, wheezes - Cardiovascular Cardiovascular exam: Present: regular rate and rhythm. Absent: diastolic murmur , JVD, systolic murmur - GI/Abdominal GI/Abdominal exam: Present: normal bowel sounds, soft. Absent: ascites, distended, mass, organomegaly, tenderness - Extremities Exam Extremities exam: Present: normal inspection, full ROM - Back Exam Back exam: Present: normal inspection - Neurological Exam Neurological exam: Present: alert, altered - Psychiatric Psychiatric exam: Present: other - Skin Skin exam: Present: normal color, warm, dry Results - Labs CBC & BMP: 10/26/16 06:10 10/26/16 06:09 Lab Results: I have reviewed the past 24 hour labs
--- NOTE | 2016-10-29 11:15 | Pathology Report from [facility] ---
[facility] – [place] ACCESSION # : [id number] PATIENT NAME : Alana Foster ORDERING DR : RHEA TOWNSEND MD CLINICAL HX: Bilateral Pneumonia POST-OP DX: Same SPECIMEN INFO: Washing,Bronchial,JOHANNA - 10 mls mccord cloudy with white chunks CLASS: I CLASS COMMENTS: Acute, Chronic inflammation, scant squamous and bronchial cells.CELL BLOCK: Same CLASS LEGEND: CLASS 0 Material inadequate for diagnosis because of (see comment) CLASS I Absence of atypical or abnormal cells CLASS II Atypical Cytology but no evidence of malignancy CLASS III Cytology suggestive of but not conclusive for malignancy CLASS IV Cytology strongly suggestive of malignancy CLASS V Cytology conclusive for malignancy COLLECTED DATE: 10/26/2016 [facility] REPORT DATE: 10/29/2016 ELECTRONICALLY SIGNED BY: Josh Dueñas III, M.D. 10/29/2016 - 9:10:56 MTDGurdeep
--- NOTE | 2016-10-29 11:16 | Pathology Report from [facility] ---
[facility] [place]ESSION # : [id number] PATIENT NAME : Alana Foster ORDERING DR : RHEA TOWNSEND MD CLINICAL HX: Bilateral Pneumonia POST-OP DX: Same SPECIMEN INFO: Brushing,Bronchial,LLL,Latereal- 1 brush (Received in Cytolyt). CLASS: I CLASS COMMENTS: Few benign respiratory bronchial groups.CELL BLOCK: Same CLASS LEGEND: CLASS 0 Material inadequate for diagnosis because of (see comment) CLASS I Absence of atypical or abnormal cells CLASS II Atypical Cytology but no evidence of malignancy CLASS III Cytology suggestive of but not conclusive for malignancy CLASS IV Cytology strongly suggestive of malignancy CLASS V Cytology conclusive for malignancy COLLECTED DATE: 10/26/2016 [facility] REPORT DATE: 10/29/2016 ELECTRONICALLY SIGNED BY: Josh Dueñas III, M.D. 10/29/2016 - 9:14:41 MTDD
--- NOTE | 2016-10-29 11:16 | Pathology Report from [facility] ---
[facility] ACCESSION # : [id number] PATIENT NAME : Alana Foster ORDERING DR : RHEA TOWNSEND MD CLINICAL HX: Bilateral Pneumonia POST-OP DX: Same SPECIMEN INFO: Brushing,Bronchial,RLLSuperiorSegment- 1 brush (Received in Cytolyt). CLASS: II CLASS COMMENTS: Inflammation, reactive bronchial epithelium.CELL BLOCK: Same CLASS LEGEND: CLASS 0 Material inadequate for diagnosis because of (see comment) CLASS I Absence of atypical or abnormal cells CLASS II Atypical Cytology but no evidence of malignancy CLASS III Cytology suggestive of but not conclusive for malignancy CLASS IV Cytology strongly suggestive of malignancy CLASS V Cytology conclusive for malignancy COLLECTED DATE: 10/26/2016 [facility] REPORT DATE: 10/29/2016 ELECTRONICALLY SIGNED BY: Josh Dueñas III, M.D. 10/29/2016 - 9:13:14 MTDGurdeep
--- NOTE | 2016-10-29 11:17 | Pathology Report from [facility] ---
[facility] [place] : [id number] PATIENT NAME : Alana Foster ORDERING DR : RHEA TOWNSEND MD CLINICAL HX: Bilateal Pneumonia POST-OP DX: Same SPECIMEN INFO: Brushing,Bronchial,LLLSuperiorSegment - 1 brush (Received in Cytolyt) CLASS: II CLASS COMMENTS: Acute inflammation, reactive reparative chamges.CELL BLOCK: Same CLASS LEGEND: CLASS 0 Material inadequate for diagnosis because of (see comment) CLASS I Absence of atypical or abnormal cells CLASS II Atypical Cytology but no evidence of malignancy CLASS III Cytology suggestive of but not conclusive for malignancy CLASS IV Cytology strongly suggestive of malignancy CLASS V Cytology conclusive for malignancy COLLECTED DATE: 10/26/2016 [facility] REPORT DATE: 10/29/2016 ELECTRONICALLY SIGNED BY: Josh Dueñas III, M.D. 10/29/2016 - 9:17:52 MTDGurdeep
--- NOTE | 2016-10-29 11:17 | Pathology Report from [facility] ---
[facility] – [place], [place] ACCESSION # : [id number] PATIENT NAME : Alana Foster ORDERING DR : RHEA TOWNSEND MD CLINICAL HX: Bilateral Pneumonia POST-OP DX: Same SPECIMEN INFO: Brushing,Bronchial,RLL,Lateral- 1 brush (Received in Cytolyt) CLASS: II CLASS COMMENTS: Reactive bronchial epithelium.CELL BLOCK: Same CLASS LEGEND: CLASS 0 Material inadequate for diagnosis because of (see comment) CLASS I Absence of atypical or abnormal cells CLASS II Atypical Cytology but no evidence of malignancy CLASS III Cytology suggestive of but not conclusive for malignancy CLASS IV Cytology strongly suggestive of malignancy CLASS V Cytology conclusive for malignancy COLLECTED DATE: 10/26/2016 [facility] REPORT DATE: 10/29/2016 ELECTRONICALLY SIGNED BY: Josh Dueñas III, M.D. 10/29/2016 - 9:16:22 MTDGurdeep
--- NOTE | 2016-10-29 11:28 | Hospitalist Progress Note ---
Assessment and Plan - Time spent with patient Time spent with patient: Less than 30 minutes (1) Pneumonia Status: Acute Assessment and plan: Continues to improve. We have de-escalate antibiotics to levofloxacin monotherapy. Patient continues to do well from this standpoint. Evaluated by pulmonary and GI this morning. IV steroids have been decreased to every 12 dosing. EGD planned for tomorrow to evaluate for possible reflux/stricture that may be contributing to aspiration. Continue PPI. NPO tonight. Current Visit: Yes Qualifiers: (2) COPD exacerbation Status: Acute Assessment and plan: Treatment as noted above. Decreasing steroids. Current Visit: Yes (3) Hypoxia Status: Acute Assessment and plan: As above Current Visit: Yes (4) Oxygen dependent Status: Acute Assessment and plan: As above Current Visit: Yes (5) Diabetes mellitus Status: Chronic Assessment and plan: On solumedrol which is likely exacerbating hyperglycemia. Continuing to titrate NPH will increase to 25 today Current Visit: Yes Qualifiers: Diabetes mellitus complication status: with hyperglycemia (6) Debility, unspecified Status: Acute Assessment and plan: We will go ahead and consult PT/OT for strengthening and given her improvement and stabilization of pulmonary status. Current Visit: Yes Hospitalist: Subjective Interval history: Patient is a 71-year-old white female who has been admitted for recurrent pneumonias. Organisms have not been recovered previously but she continues to be treated for recurrent bacterial infections. There was some concern for aspiration contributing to this picture. She was admitted with hypoxic respiratory failure and treated with supplemental O2, antibiotics, and with high -dose IV steroids in the setting of wheezing. She is undergone a swallow study and reports of that did not show any signs of global aspiration on p.o. intake. She has improved from a breathing standpoint but continues to have difficulties with shortness of breath on activity. We have planned for a GI evaluation given her history of a possible stricture in the past. Also a rebound to evaluate for reflux as a contributing symptom of aspiration. This is planned for Saturday. Exam - Constitutional Vitals: Period Temp Pulse Resp BP Sys/Melendez Pulse Ox Last 24 Hr 97.3 F-99.5 F 69-100 18-24 134-169/66-85 90-99 Exam: General appearance: over weight, but in no distress. - Head Head exam: Present: normocephalic, atraumatic - Eye Eye exam: Present: EOMI - Respiratory Respiratory exam: Present: course breath sounds but moving air well. Absent: Wheezes - Cardiovascular Cardiovascular exam: Present: regular rate and rhythm - GI/Abdominal GI/Abdominal exam: Present: normal bowel sounds, soft. Absent: tenderness - Extremities Exam Extremities exam: Present: normal inspection - Neurological Exam Neurological exam: Present: awake and alert - Psychiatric Psychiatric exam: Present: normal affect, normal mood Results - Labs CBC & BMP: 10/26/16 06:10 10/26/16 06:09
[2016-10-29] MEDS: DOCUSATE SODIUM 100 MG CAPSULE PO PRN (12:11)
[2016-10-29] MEDS: CARBIDOPA/LEVODOPA CR 25-100 MG TABLET PO SCH (20:57)
[2016-10-29] MEDS: LEVOFLOXACIN INJ 500 MG in PREMIX 1 EACH IV SCH (20:58)
[2016-10-29] MEDS ORDERED: methylPREDNISolone SOD SUC 40 MG/1 ML VIAL IV SCH (21:00)
[2016-10-29] MEDS: BENZONATATE 100 MG CAPSULE PO PRN (21:04)
[2016-10-29] MEDS: ALPRAZolam 0.5 MG TABLET PO PRN (21:04)
[2016-10-30] MEDS: ALBUTEROL/IPRATROPIUM 3 ML NEB RESP TX SCH ×5 (03:41→19:25)
[2016-10-30 05:44] LABS: Basophils % 0.3 % (0.0-0.8); Eosinophils % 0.1 % (0.00-10.9); Hematocrit 37.2 VOL% (35.7-47.0); Immature Granulocytes % 5.7 %; Immature Granulocytes Absolute 0.58 #; Lymphocytes # 0.9 10*3/uL (1.4-4.0); Lymphocytes % 8.4 % (21.3-54.2); Mean Corpuscular HGB Conc 31.7 GM/DL (32-36); Mean Corpuscular Hemoglobin 27 PG (27-34); Mean Corpuscular Volume 86.5 FL (87-102); Mean Platelet Volume 10.6 FL (9.6-12.0); Monocytes # 0.4 10*3/uL (0.11-0.8); Monocytes % 3.8 % (1.7-12.7); NRBC # 0.03 10*3/uL; Neutrophils # 8.3 10*3/uL (1.4-7.4); Neutrophils % 81.7 % (38.7-73.9); Red Cell Distribution Width 16.2 % (9.3-17.3); White Blood Count 10.1 T/CUMM (4-12)
[2016-10-30 05:49] LABS: Hemoglobin 11.8 GM/DL (12.0-16.0); Platelet Count 227 T/CUMM (130-400)
[2016-10-30 06:14] LABS: Calcium 8.1 MG/DL (8.5-10.1); Osmolality,Calculated 283.7 MOS/KG (273-304); Potassium 4.6 MMOL/L (3.5-5.1)
--- NOTE | 2016-10-30 08:15 | Pulmonology Progress Note ---
Pulmonary - PN: Subj Interval history: This 71-year-old white female is admitted once again with bilateral pneumonias. Will check immune system to see if she has an immune deficiency. Plan bronchoscopy tomorrow. Cultures in the past have been either negative or just showing bacterial pneumonias. 10/26/2016 patient feeling a little better. Should be ready for bronchoscopy this morning. Her immunoglobulin levels IgG IgA and IgM are all normal. The locations of her recurrent pneumonias are suggestive of aspiration. They are inferior and posterior. Needs esophageal evaluation. 10/29/2016 patient feeling better. Cough is less. Should be ready for EGD. Likely she is having problems with reflux and microaspiration. Glucoses are running high. Will reduce Solu-Medrol a bit. 10/30/2016 patient having EGD today to evaluate for reflux and aspiration. Tapering steroids. Lungs sound better. Exam (Progress Note) - Constitutional Vitals: Period Temp Pulse Resp BP Sys/Melendez Pulse Ox Last 24 Hr 96.1 F-97.9 F 64-86 14-22 143-159/75-79 90-99 Exam: Patient's alert oriented. Vital signs normal. Pupils react to light. Throat is clear. Neck supple no bruits. Chest reveals minimal bilateral rhonchi. Heart normal rate rhythm no murmurs. Abdomen soft nontender no masses. Extremities no clubbing cyanosis or edema. Calves nontender. Results - Labs CBC & BMP: 10/30/16 05:08 10/30/16 05:08 Lab Results: I have reviewed the past 24 hour labs Assessment and Plan (1) Oxygen dependent Status: Acute Assessment and plan: Patient uses oxygen at home especially at night. She has sleep hypopnea but does not require CPAP. 10/25/2016 O2 sats look good. 10/26/2016 continuing low flow nasal oxygen. 10/29/2016 tolerating low flow oxygen. 10/30/2016 patient has oxygen at home already. History of sleep hypopnea. Current Visit: Yes (2) Pneumonia Status: Acute Assessment and plan: She has had frequent episodes of pneumonia, usually in different lobes. This time it seems to be both lower lobes posteriorly. This is concerning for underlying lung disease or an immune disorder as a cause of this. We know that she has chronic asthma and mucous plugging I think this is likely the cause. I had put her on Zithromax much as we would do for bronchiectasis to see if we could decrease the number of infections. She is only been on it a week or so so I do not think it has had a full trial. 10/25/2016 bibasilar pneumonia. Plan for bronchoscopy tomorrow. 10/26/2016 recurrent basilar pneumonia. This time in both lower lobes posteriorly. I am concerned about possible aspiration. 10/29/2016 clinically improved. Chest x-ray has not shown any changes as yet. Concerned about aspiration. For GI evaluation. 10/30/2016 pneumonia is improving. Being evaluated for cause of recurrent pneumonias. Suspect aspiration. Current Visit: No (3) Severe persistent chronic asthma with acute exacerbation Status: Acute Assessment and plan: Treat with steroids and bronchodilators. She has not grown out any Aspergillus or anything of that sort from bronchoscopy before 10/25/2016 continuing empiric steroids and bronchodilators. 10/26/2016 she is better. Less bronchospasm. 10/29/2016 I do not hear any wheezing today. 10/30/2016 has a few rhonchi but no wheezes. Tapering steroids. Current Visit: No (4) Diabetes mellitus Status: Chronic Assessment and plan: Glucoses were elevated. Sliding scale insulin indicated. 10/25/2016 glucoses remain elevated. Increase sliding scale. She is on steroids. 10/26/2016 blood sugars are little high. Defer to primary service. 10/29/2016 glucoses continue to be a little high. I am reducing her steroids. Defer to primary service as far as any change in insulin. 10/30/2016 blood sugars are little better. Current Visit: Yes Qualifiers: Diabetes mellitus complication status: with hyperglycemia
[2016-10-30] MEDS: INSULIN NPH 100 UNIT/ML SUBCUT SCH ×2 (08:57→16:26)
[2016-10-30] MEDS: INSULIN LISPRO 100 UNIT/ML SUBCUT SCH ×4 (08:58→22:18)
--- NOTE | 2016-10-30 13:25 | History and Physical Update ---
History and Physical Update - History and Physical H&P was reviewed, the patient examined and there: are no changes in the patients condition since last H&P was completed. - Physical Exam Mental Status: alert and oriented Heart: regular rate and rhythm Lung: clear to auscultation Abdomen: within normal limits Vitals: within normal limits
[2016-10-30] MEDS ORDERED: PROPOFOL 200 MG/20 ML VIAL IV ONE (13:34)
[2016-10-30] MEDS ORDERED: LIDOCAINE 1% 5 ML VIAL ONE (13:34)
--- NOTE | 2016-10-30 13:42 | Operative Note ---
Date of procedure: 10/30/16 Pre-op diagnosis: Dysphagia Procedure: Procedure: Esophagogastroduodenoscopy with bougie dilation esophagus Brief clinical abstract: 71-year-old female complains of dysphagia to solids. She is admitted with recent pneumonia and has improved on therapy. Indication for procedure: Dysphagia Endoscopic findings:[After informed consent was obtained, the patient was placed in the left lateral decubitus position. The gastroscope was inserted in the upper esophagus under direct vision with no resistance encountered. Esophageal mucosa appeared normal down to the squamocolumnar junction. A mild obstructive fibrous appearing stricture was noted at that level with no erosions or ulcerations. The endoscope was advanced in the stomach which was carefully examined including retroflexed view of the cardia and fundus with no abnormality seen. The pyloric channel, duodenal bulb, second and third portion of the duodenum appeared normal. The endoscope was withdrawn and Chadwick dilator size 54 Khmer was inserted in the upper esophagus and advanced beyond the level of the GE junction with mild resistance encountered. No blood was noted on the dilator afterwards and she had no chest pain. She appeared to tolerate the procedure well. Impression: Distal esophageal stricture secondary to GERD-status post bougie dilation Recommendations: Continue daily PPI therapy. Redilate as needed for dysphagia symptoms. Anesthesia: MAC Surgeon / Physician: Claudy Castro Estimated blood loss: none Specimens: none sent Condition: stable Disposition: post procedure unit Results - Labs CBC & BMP: 10/30/16 05:08 10/30/16 05:08 Discharge Plan - Discharge Medications No Action Allopurinol [Zyloprim] 300 mg PO DAILY ALPRAZolam [Xanax] 0.5 mg PO TID PRN PRN Reason: Anxiety Glimepiride [Amaryl] 4 mg PO DAILY W/BREAKFAST Ondansetron Tab [Zofran Tab] 4 mg PO Q4H PRN PRN Reason: Nausea Citalopram [CeleXA] 40 mg PO DAILY Carbidopa/Levodopa Cr 25-100 [Sinemet Cr 25-100] 1 tablet PO BEDTIME Albuterol Neb [Proventil Neb] 2.5 mg RESP TX RT Q4H PRN #100 nebulization solution PRN Reason: Shortness Of Breath/Wheezing Hydrocodone/Acetaminophen [Hydrocodon-Acetaminophn 10-325] 1 tablet PO Q6HR PRN PRN Reason: Pain Mirabegron [Myrbetriq] 25 mg PO DAILY Estradiol [Estrace Tab] 0.5 mg PO DAILY Carisoprodol 350 mg PO TID Cyanocobalamin (Vitamin B-12) [Vitamin B-12] 1,000 mcg IM Q30D Polyethylene Glycol Powder [Miralax] 17 gm PO DAILY Fluconazole 200 mg PO DAILY Azithromycin Tab [Zithromax Tab] 250 mg PO QOTHER DAY Potassium Chloride 10 meq PO BID MDD supplement - Follow Up or Referral - Forms/Instructions
--- NOTE | 2016-10-30 13:45 | Hospitalist Progress Note ---
Hospitalist: Subjective Interval history: Pt seen prior to EGD. She reports SOB is better. She reports a dry cough. She denies any nausea, vomiting, abdominal pain. No fever. Awaiting EGD Exam - Constitutional Vitals: Period Temp Pulse Resp BP Sys/Melendez Pulse Ox Last 24 Hr 96.1 F-97.9 F 64-86 14-22 143-173/75-81 90-99 Exam: General :awake alert and oriented 3 lying in hospital bed comfortable in no acute distress, slightly pale Cardiovascular :regular rate and rhythm normal S1-S2 no obvious murmurs rubs or gallop Lungs :clear to auscultation bilaterally anteriorly diminished at the bases nonlabored breathing noted Abdomen is soft nontender nondistended positive bowel sounds no organomegaly or masses appreciated Extremities are warm and well-perfused no clubbing cyanosis or edema. She moves all extremities equally Results - Labs CBC & BMP: 10/30/16 05:08 10/30/16 05:08 - Impressions (1) Pneumonia, recurrent likely due to severe GERD Status: Acute Assessment and plan: Continues to improve. - s/p bronchoscopy 10/26. - Her immunoglobulin levels IgG IgA and IgM are all normal. - Cont Levofloxacin monotherapy. - Pulmonary following and weaning steroids. Cont bronchodilators for now - Blood and sputum cultures show no growth. Fungal and AFB studies are pending. Current Visit: Yes Qualifiers: (2) COPD exacerbation Status: Acute Assessment and plan: Treatment as noted above. Decreasing steroids. Current Visit: Yes (3) GERD with esophageal stricture - s/p dilation with EGD 10/30 - Cont PPI - GI following and appreciate input (4) Hypoxia Status: Acute Assessment and plan: As above Current Visit: Yes - wean oxygen as tolerated 5) Diabetes mellitus type 2 (control unknown) Status: Chronic Assessment and plan: On solumedrol which is likely exacerbating hyperglycemia. BS improving with decreasing steroids and increasing NPH 25mg SQ BID. Watch BS closely as wean steroids. Current Visit: Yes Qualifiers: Diabetes mellitus complication status: with hyperglycemia (6) Debility, unspecified Status: Acute Assessment and plan: - PT/OT for strengthening and given her improvement and stabilization of pulmonary status. Current Visit: Yes DVT prophylaxis- Lovenox D/W pt and granddaughter. All questions answered.
--- NOTE | 2016-10-30 13:48 | Anesthesia Post-Op ---
Anesthesia Post OP - Post Ansesthetic Evaluation Patient seen in post op: Yes Resp: within normal limits CV: within normal limits Mental: within normal limits Temp: within normal limits Ytst-Ol-Kblcdaptx: within normal limits Nausea and Vomiting: within normal limits Pain: within normal limits
[2016-10-30] MEDS ORDERED: GLUCAGON 1 MG VIAL IM PRN (15:14)
[2016-10-30] MEDS ORDERED: DEXTROSE 50% 25 GM/50 ML VIAL IV PRN (15:14)
[2016-10-30] MEDS: POLYETHYLENE GLYCOL POWDER 17 GM PACK PO SCH (15:31)
[2016-10-30] MEDS: FLUCONAZOLE 100 MG TABLET PO SCH (15:31)
[2016-10-30] MEDS: ENOXAPARIN 40 MG/0.4 ML SYRINGE SUBCUT SCH (15:32)
[2016-10-30] MEDS: BENZONATATE 100 MG CAPSULE PO PRN (15:32)
[2016-10-30] MEDS: guaiFENesin/DM ER 600-30 MG TABLET PO SCH ×2 (15:32→21:25)
[2016-10-30] MEDS: CARISOPRODOL 350 MG TABLET PO SCH ×3 (15:33→21:25)
[2016-10-30] MEDS: PANTOPRAZOLE 40 MG TABLET PO SCH (15:33)
[2016-10-30] MEDS: ALLOPURINOL 300 MG TABLET PO SCH (15:34)
[2016-10-30] MEDS: CITALOPRAM 40 MG TABLET PO SCH (15:35)
[2016-10-30] MEDS ORDERED: methylPREDNISolone SOD SUC 40 MG/1 ML VIAL IV SCH (21:00)
[2016-10-30] MEDS: CARBIDOPA/LEVODOPA CR 25-100 MG TABLET PO SCH (21:25)
[2016-10-30] MEDS: LEVOFLOXACIN INJ 500 MG in PREMIX 1 EACH IV SCH (21:26)
[2016-10-31] MEDS: ALBUTEROL/IPRATROPIUM 3 ML NEB RESP TX SCH ×4 (00:02→11:14)
--- NOTE | 2016-10-31 08:54 | Pulmonology Progress Note ---
Pulmonary - PN: Subj Interval history: This 71-year-old white female is admitted once again with bilateral pneumonias. Will check immune system to see if she has an immune deficiency. Plan bronchoscopy tomorrow. Cultures in the past have been either negative or just showing bacterial pneumonias. 10/26/2016 patient feeling a little better. Should be ready for bronchoscopy this morning. Her immunoglobulin levels IgG IgA and IgM are all normal. The locations of her recurrent pneumonias are suggestive of aspiration. They are inferior and posterior. Needs esophageal evaluation. 10/29/2016 patient feeling better. Cough is less. Should be ready for EGD. Likely she is having problems with reflux and microaspiration. Glucoses are running high. Will reduce Solu-Medrol a bit. 10/30/2016 patient having EGD today to evaluate for reflux and aspiration. Tapering steroids. Lungs sound better. 10/31/2016 findings of EGD noted. Patient has reflux with stricture. It was dilated. Had long discussion today with patient regarding antireflux measures. She has a wedge pillow and a lounge chair to keep her head up when she sleeps. She is advised to not eat within 3 hours of bedtime. Advised to lose weight. She will continue proton pump inhibitor long-term. I will stop her steroids today. Change her to oral antibiotics. Recheck chest x-ray tomorrow. Probably can be discharged tomorrow. I will follow in the office. Exam (Progress Note) - Constitutional Vitals: Period Temp Pulse Resp BP Sys/Melendez Pulse Ox Last 24 Hr 97.0 F-98.3 F 64-93 16-20 134-181/69-96 92-99 Exam: Patient's alert oriented. Vital signs normal. Pupils react to light. Throat is clear. Neck supple no bruits. Chest reveals minimal bilateral rhonchi. Heart normal rate rhythm no murmurs. Abdomen soft nontender no masses. Extremities no clubbing cyanosis or edema. Calves nontender. Results - Labs CBC & BMP: 10/30/16 05:08 10/30/16 05:08 Lab Results: I have reviewed the past 24 hour labs Assessment and Plan (1) Oxygen dependent Status: Acute Assessment and plan: Patient uses oxygen at home especially at night. She has sleep hypopnea but does not require CPAP. 10/25/2016 O2 sats look good. 10/26/2016 continuing low flow nasal oxygen. 10/29/2016 tolerating low flow oxygen. 10/30/2016 patient has oxygen at home already. History of sleep hypopnea. 10/31/2016 patient uses oxygen at night for sleep apnea. She is not using it during the day. We will check O2 sat on room air. Current Visit: Yes (2) Pneumonia Status: Acute Assessment and plan: She has had frequent episodes of pneumonia, usually in different lobes. This time it seems to be both lower lobes posteriorly. This is concerning for underlying lung disease or an immune disorder as a cause of this. We know that she has chronic asthma and mucous plugging I think this is likely the cause. I had put her on Zithromax much as we would do for bronchiectasis to see if we could decrease the number of infections. She is only been on it a week or so so I do not think it has had a full trial. 10/25/2016 bibasilar pneumonia. Plan for bronchoscopy tomorrow. 10/26/2016 recurrent basilar pneumonia. This time in both lower lobes posteriorly. I am concerned about possible aspiration. 10/29/2016 clinically improved. Chest x-ray has not shown any changes as yet. Concerned about aspiration. For GI evaluation. 10/30/2016 pneumonia is improving. Being evaluated for cause of recurrent pneumonias. Suspect aspiration. 10/31/2016 clinically improved. Likely she is having recurrent episodes of microaspiration causing her pneumonia. Hopefully this will improve after EGD with dilatation, and stepped up treatment for reflux. Current Visit: No (3) Severe persistent chronic asthma with acute exacerbation Status: Acute Assessment and plan: Treat with steroids and bronchodilators. She has not grown out any Aspergillus or anything of that sort from bronchoscopy before 10/25/2016 continuing empiric steroids and bronchodilators. 10/26/2016 she is better. Less bronchospasm. 10/29/2016 I do not hear any wheezing today. 10/30/2016 has a few rhonchi but no wheezes. Tapering steroids. 10/31/2016 continue controller medications post discharge. Current Visit: No (4) Diabetes mellitus Status: Chronic Assessment and plan: Glucoses were elevated. Sliding scale insulin indicated. 10/25/2016 glucoses remain elevated. Increase sliding scale. She is on steroids. 10/26/2016 blood sugars are little high. Defer to primary service. 10/29/2016 glucoses continue to be a little high. I am reducing her steroids. Defer to primary service as far as any change in insulin. 10/30/2016 blood sugars are little better. 10/31/2016 glucoses better. Current Visit: Yes Qualifiers: Diabetes mellitus complication status: with hyperglycemia
[2016-10-31] MEDS ORDERED: LEVOFLOXACIN 500 MG TABLET PO SCH (09:00)
[2016-10-31] MEDS: INSULIN NPH 100 UNIT/ML SUBCUT SCH (09:12)
[2016-10-31] MEDS: INSULIN LISPRO 100 UNIT/ML SUBCUT SCH ×2 (09:13→11:30)
[2016-10-31] MEDS: ALPRAZolam 0.5 MG TABLET PO PRN (09:16)
[2016-10-31] MEDS: CITALOPRAM 40 MG TABLET PO SCH (09:16)
[2016-10-31] MEDS: PANTOPRAZOLE 40 MG TABLET PO SCH (09:16)
[2016-10-31] MEDS: ALLOPURINOL 300 MG TABLET PO SCH (09:16)
[2016-10-31] MEDS: BENZONATATE 100 MG CAPSULE PO PRN (09:16)
[2016-10-31] MEDS: guaiFENesin/DM ER 600-30 MG TABLET PO SCH (09:16)
[2016-10-31] MEDS: CARISOPRODOL 350 MG TABLET PO SCH ×2 (09:16→14:14)
[2016-10-31] MEDS: FLUCONAZOLE 100 MG TABLET PO SCH (09:17)
[2016-10-31] MEDS: ENOXAPARIN 40 MG/0.4 ML SYRINGE SUBCUT SCH (09:19)
[2016-10-31] MEDS: POLYETHYLENE GLYCOL POWDER 17 GM PACK PO SCH (09:19)
--- NOTE | 2016-10-31 10:48 | XRay Report ---
XR chest 2V Indication: Right lower lobe pneumonia Comparison: Chest x-ray dated October 29, 2016 Technique: Frontal and lateral views of the chest. Findings: Continued cardiomegaly. Interval improved right lower lung consolidation with little residual remaining. Continued prominence of bilateral interstitial lung markings. Visualized osseous and surrounding soft tissue structures appear grossly unchanged. Diffuse osteopenia. IMPRESSION: As above. PROCEDURE INTERPRETED AT [facility] DEPARTMENT OF RADIOLOGY Final Report Signed by: Dr Waylon Donis
[2016-10-31] MEDS ORDERED: FLUTICASONE/SALMETEROL 250-50 DISKUS 14 DOSE INH SCH (11:00)
--- NOTE | 2016-10-31 11:30 | Gastrointestinal Progress Note ---
<Lillie Pinon - Last Filed: 10/31/16 11:27> Assessment and Plan (1) Dysphagia Status: Acute Assessment and plan: 10/31-Post esophageal dilation, improved swallowing. For possible discharge home in next day or so if continues to improve from resp standpoint. Plan and addendum to follow by Dr Castro. 10/29-continued dysphagia. Respiratory status improved. Pulmonary feels okay to proceed with EGD at this time. We will tentatively plan for EGD tomorrow. Plan an addendum followed by Dr. Castro. 10/26-reports of long-term dysphagia to pills, solids and liquids with choking episodes at times. Chronic cough at bedtime. Report of worsening GERD. Prior endoscopy with questionable dilation in the past, unable to locate records. Consult speech therapy for bedside swallow later this afternoon after patient is outside of the effects of anesthesia. Plan an addendum to followed by Dr. Castro. Current Visit: Yes Gastroenterology - PN: Subj Interval history: CC: Dysphagia Pt is seen, awake and alert sitting up in bed with family at side. States she is swallowing better at this time post EGD. She denies any abdominal pain, nausea or vomiting. Abdomen is soft, nontender. She is for possible discharge home this afternoon or tomorrow. ROS: Denies SOB or chest pain Exam (Progress Note) - Constitutional Vitals: Period Temp Pulse Resp BP Sys/Melendez Pulse Ox Last 24 Hr 97.0 F-98.3 F 64-93 16-20 134-181/69-96 92-99 - Other Additional findings: General appearance: no acute distress, over weight - Head Head exam: Present: normal inspection, normocephalic - Eye Eye exam: Present: other (Lids and conjunctive are unremarkable). Absent: scleral icterus - ENT ENT exam: Present: normal exam, normal oropharynx - Neck Neck exam: Present: normal inspection - Respiratory Respiratory exam: Present: clear to auscultation bilaterally. Absent: rales, rhonchi, wheezes - Cardiovascular Cardiovascular exam: Present: regular rate and rhythm. Absent: diastolic murmur , JVD, systolic murmur - GI/Abdominal GI/Abdominal exam: Present: normal bowel sounds, soft. Absent: ascites, distended, mass, organomegaly, tenderness - Extremities Exam Extremities exam: Present: normal inspection, full ROM - Back Exam Back exam: Present: normal inspection - Neurological Exam Neurological exam: Present: alert, altered - Psychiatric Psychiatric exam: Present: other - Skin Skin exam: Present: normal color, warm, dry Results - Labs CBC & BMP: 10/30/16 05:08 10/30/16 05:08 Lab Results: I have reviewed the past 24 hour labs Specialty Discharge - Follow Up or Referrals Follow up with: md brandon [Other] - 2 Weeks Xavier Frank MD [Physician] - 2 Weeks <Claudy Castro - Last Filed: 10/31/16 13:52> Exam (Progress Note) - Constitutional Vitals: Period Temp Pulse Resp BP Sys/Melendez Pulse Ox Last 24 Hr 97.0 F-98.3 F 64-93 16-21 134-181/69-96 92-99 Results - Labs CBC & BMP: 10/30/16 05:08 10/30/16 05:08
[2016-10-31 12:36] VITALS: BP 155/77
--- NOTE | 2016-10-31 12:44 | Discharge Summary ---
Hospital Course - Hospital Course Hospital Course: Patient is a 71-year-old female with a history of COPD and acid reflux who presented to the hospital with chief complaint of shortness of breath and cough. She was found to have acute hypoxia due to recurrent pneumonia which was thought to be due to severe GERD. Pulmonology and gastroenterology were consulted to assist with her management. She was started on broad-spectrum antibiotics with was able to be tapered back to Levaquin IV. She was also treated with bronchodilators, and IV steroids. Oxygen was weaned as tolerated though she chronically uses oxygen at home at night. Her immunoglobulin levels IgG IgA and IgM were normal. She did undergo a bronchoscopy on October 26. BAL cultures, blood and sputum cultures showed no growth. Fungal and AFB studies were sent and were currently pending at the time of dictation. Repeat chest x-ray on 10/31/2016 showed significant improvement in infiltrates. For acute COPD exacerbation, patient was treated with steroids antibiotics and bronchodilators with significant improvement. Patient underwent an EGD on October 30 which revealed a distal esophageal stricture which was dilated without any immediate complications. She was given information on the GERD diet and lifestyle changes including weight loss and continue to stay on the proton pump inhibitor chronically. She was able to tolerate a soft diet without difficulty. Patient's insulin was adjusted due to steroid-induced hyperglycemia. Once steroids were decreased, her blood sugars were under much better control. Patient also was seen by physical and Occupational Therapy for debility with good results. While she was cleared by all consultants, patient was discharged to home with home health for ongoing care. - Time spent with patient Time with patient DS: Greater than 30 minutes (41 minutes) Diagnosis - Discharge Diagnosis (1) COPD exacerbation Status: Resolved (2) Debility, unspecified Status: Resolved (3) Dysphagia Status: Resolved (4) Hypoxia Status: Resolved (5) Oxygen dependent Status: Chronic (6) Pneumonia Status: Acute (7) Diabetes mellitus Status: Chronic (8) Right lower lobe pneumonia Status: Acute (9) Esophageal stricture Status: Resolved (10) GERD (gastroesophageal reflux disease) Status: Chronic Specialty Discharge - Follow Up or Referrals Follow up with: Xavier Frank MD [Physician] - 2 Weeks pcpmd [Other] - 2 Weeks Discharge Plan - Discharge Data Disposition: Home Health Service Condition at Discharge: Stable Discharge Diet: other (Soft, GERD/1800 ADA diet) Activity: as per physical therapy Contact your physician if you experience:: fever over 101, Difficulty voiding, Redness or swelling, Nausea/Vomiting, Shortness of breath (Worsened), Bleeding, pain uncontrolled by pain medications - Discharge Medications New Benzonatate [Tessalon] 100 mg PO BID PRN #100 capsule PRN Reason: Cough Docusate Sodium Cap [Colace Cap] 100 mg PO BID PRN capsule PRN Reason: Constipation Fluconazole Tab [Diflucan Tab] 100 mg PO DAILY #7 tablet Fluticasone/Salmeterol 250-50 [Advair 250-50] 1 puff INH BID Pantoprazole Tab [Protonix Tab] 40 mg PO DAILY #30 tablet guaiFENesin/DM ER 600-30 [Mucinex Dm 600-30 MG] 1 tablet PO BID tablet Albuterol/Ipratropium Neb [Duoneb] 3 ml RESP TX RT Q4H #90 vial Albuterol/Ipratropium Neb [Duoneb] 3 ml RESP TX RT Q4H PRN PRN Reason: Shortness Of Breath/Wheezing Insulin NPH [HumuLIN N] 25 unit SUBCUT BIDAC #1 syringe Continue Allopurinol [Zyloprim] 300 mg PO DAILY ALPRAZolam [Xanax] 0.5 mg PO TID PRN PRN Reason: Anxiety Ondansetron Tab [Zofran Tab] 4 mg PO Q4H PRN PRN Reason: Nausea Citalopram [CeleXA] 40 mg PO DAILY Carbidopa/Levodopa Cr 25-100 [Sinemet Cr 25-100] 1 tablet PO BEDTIME Hydrocodone/Acetaminophen [Hydrocodon-Acetaminophn 10-325] 1 tablet PO Q6HR PRN PRN Reason: Pain Mirabegron [Myrbetriq] 25 mg PO DAILY Estradiol [Estrace Tab] 0.5 mg PO DAILY Carisoprodol 350 mg PO TID Cyanocobalamin (Vitamin B-12) [Vitamin B-12] 1,000 mcg IM Q30D Polyethylene Glycol Powder [Miralax] 17 gm PO DAILY Discontinued Glimepiride [Amaryl] 4 mg PO DAILY W/BREAKFAST Albuterol Neb [Proventil Neb] 2.5 mg RESP TX RT Q4H PRN #100 nebulization solution PRN Reason: Shortness Of Breath/Wheezing Fluconazole 200 mg PO DAILY Azithromycin Tab [Zithromax Tab] 250 mg PO QOTHER DAY Potassium Chloride 10 meq PO BID MDD supplement - Follow Up or Referral Follow Up: Xavier Frank MD [Physician] - - Forms/Instructions Exam - Constitutional Vitals: Period Temp Pulse Resp BP Sys/Melendez Pulse Ox Last 24 Hr 97.0 F-98.3 F 64-93 16-21 134-181/69-96 92-99 Exam: General :awake alert and oriented 3 lying in hospital bed comfortable in no acute distress, slightly pale Cardiovascular :regular rate and rhythm normal S1-S2 no obvious murmurs rubs or gallop Lungs :clear to auscultation bilaterally anteriorly diminished at the bases nonlabored breathing noted Abdomen is soft nontender nondistended positive bowel sounds no organomegaly or masses appreciated Extremities are warm and well-perfused no clubbing cyanosis or edema. She moves all extremities equally Discharge Results Procedures and tests throughout hospitalization: Pending Orders 10/26/16 07:50 AFB Culture/Smears Routine Fungal Culture w/ Prep Routine 10/26/16 07:57 Cytology Request Routine 11/01/16 04:00 XR chest 2V IN AM Labs on day of discharge: Labs from last 24 hours 10/31/16 10/31/16 10/30/16 10:50 07:04 21:29 POC Glucose 135 H 189 H 122 H 10/30/16 10/30/16 16:00 14:57 POC Glucose 122 H 98 Preliminary micro results at discharge 10/26/16 07:50 Fungal Culture - Preliminary Bronchial Washings No Fungus isolated at 1 week 10/26/16 07:50 Mycobacterial Culture - Preliminary Bronchial Washings No AFB isolated at 1 week DS: Provider Date of admission: 10/24/16 12:54 Primary care physician: . No PCP Attending physician on admission: John Montanez MD Consults: 10/24/16 13:39 Consult to Physician [CONS] Routine Comment: sob, hx of interstitial pna, sent from clinic Consulting Provider: Xavier Frank Person Notified: dr. frank Date Notified: 10/26/16 10/24/16 13:41 Consult to Occupational Therapy [CONS] Routine Reason for Occupational Therapy: Weakness Consult to Physical Therapy [CONS] Routine Reason for Physical Therapy: Weakness 10/26/16 08:05 Consult to Physician [CONS] Routine Comment: Prob recurrent aspiration. Fam asks Dr. Castro Consulting Provider: Claudy Castro Consult to Specialist Group: Gastroenterology When should Consulting Provider be notified: Now Person Notified: prashanth Date Notified: 10/26/16 Time Notified: 08:58 Discharging clinician: Marisol Greene MD
== END 2016-10-31 16:15 | disposition home health service (06) | DRG 177 ==
LOC: N.2E 12:54 → SUATTDRO 12:54 → N.2E 13:01
PROVIDERS: ADMIT Internal Medicine; ATTEND Pediatrics
PROC: BRONCHB (2016-10-26 07:20)

== ENCOUNTER 2016-11-09 14:33 | Inpatient (IN) ==
[2016-11-09] MEDS ORDERED: SODIUM CHLORIDE 0.9% 1,000 ML IV STA (15:06)
--- NOTE | 2016-11-09 15:22 | XRay Report ---
XR chest 1V portable Indication: Dyspnea. Chest one view: Comparison 10/31/2016. Lungs remain hypoinflated with scattered calcified granulomata. There is continued bibasilar atelectasis. In general, interstitial markings of the lungs have increased in prominence diffusely. Heart size remains normal. Central pulmonary vascular congestion persists unchanged. Impression: Increased diffuse interstitial markings of the lungs, either mild fluid overload versus airways disease. Persistent pulmonary hypoinflation with atelectasis. PROCEDURE INTERPRETED AT [facility] DEPARTMENT OF RADIOLOGY Final Report Signed by: Beto Andrade M.D.
--- NOTE | 2016-11-09 15:28 | CT Report ---
CT head/brain wo con Indication: Fall. Altered mental status. CT BRAIN WITHOUT CONTRAST DLP: 998 mGy*cm. One or more of the following dose reduction techniques was used: Automated exposure control, adjustment of the mA and/or kV according the patient size, or use of iterative reconstruction techniques. Comparison: 06/08/2015. Date of admission: 11/09/2016. Technique: Axial noncontrast CT images of the brain were obtained. Findings: No acute hemorrhage, mass or mass effect. Generalized atrophy and patchy periventricular white matter hypodensity is present throughout both convexities. Cortical yu-white junction and structures of the basal ganglia are well-defined. No bone lesions are shown. Internal auditory canals are symmetric. Visualized sinuses and mastoid air cells are clear. Impression: No acute intracranial pathology. Moderate generalized atrophy and changes consistent with microvascular disease. PROCEDURE INTERPRETED AT [facility] DEPARTMENT OF RADIOLOGY Final Report Signed by: Beto Andrade M.D. MTDD
--- NOTE | 2016-11-09 16:03 | Emergency Department Note ---
Arrival - Arrival Chief Complaint: Altered Mental Status ED Nursing Triage Note: pt fell two weeks ago and still has a black eye. pt's family states that pt took night time meds this am Mode of Arrival: Stretcher Source: Patient Time Seen by Provider: 11/09/16 14:59 - History of Present Illness HPI Narrative: The patient complains of feeling very weak today and more short of breath. She states that someone who was apparently checking her oxygen saturations at home said her "oxygen will not come up." She cannot tell me what her oxygen saturation was. The patient's family states they think she has been running fever. She was having chills earlier today. They say she has become too weak to get up on her own. This all started last night. Patient was recently hospitalized with bilateral pneumonia. She was discharged approximately 2 weeks ago and fell when she got home. She still has facial ecchymosis from the fall. She never came to the hospital after the fall. Allergies/Adverse Reactions: Allergies Allergy/AdvReac Type Severity Reaction Status Date / Time Penicillins Allergy RASH Verified 07/17/16 21:13 phenobarbital Allergy RASH Verified 07/17/16 21:13 Home Medications: Home Medications Medication Instructions Recorded Confirmed Type ALPRAZolam [Xanax] 0.5 mg PO TID PRN 11/29/14 11/09/16 History Allopurinol [Zyloprim] 300 mg PO DAILY 11/29/14 11/09/16 History Carbidopa/Levodopa Cr 25-100 1 tablet PO BEDTIME 04/15/15 11/09/16 History [Sinemet Cr 25-100] Citalopram [CeleXA] 40 mg PO DAILY 04/15/15 11/09/16 History Ondansetron Tab [Zofran Tab] 4 mg PO Q4H PRN 04/15/15 11/09/16 History Cyanocobalamin (Vitamin B-12) 1,000 mcg IM Q30D 07/19/16 11/09/16 History [Vitamin B-12] Polyethylene Glycol Powder 17 gm PO DAILY 10/02/16 11/09/16 History [Miralax] Carisoprodol 350 mg PO TID 10/24/16 11/09/16 History Estradiol [Estrace Tab] 0.5 mg PO DAILY 10/24/16 11/09/16 History Hydrocodone/Acetaminophen 1 tablet PO Q6HR PRN 10/24/16 11/09/16 History [Hydrocodon-Acetaminophn 10-325] Mirabegron [Myrbetriq] 25 mg PO DAILY 10/24/16 11/09/16 History Albuterol/Ipratropium Neb [Duoneb] 3 ml RESP TX RT Q4H #90 vial 10/31/16 Rx Albuterol/Ipratropium Neb [Duoneb] 3 ml RESP TX RT Q4H PRN 10/31/16 11/09/16 Rx Benzonatate [Tessalon] 100 mg PO BID PRN #100 capsule 10/31/16 11/09/16 Rx Docusate Sodium Cap [Colace Cap] 100 mg PO BID PRN capsule 10/31/16 11/09/16 Rx Fluconazole Tab [Diflucan Tab] 100 mg PO DAILY #7 tablet 10/31/16 11/09/16 Rx Fluticasone/Salmeterol 250-50 1 puff INH BID 10/31/16 11/09/16 Rx [Advair 250-50] Insulin NPH [HumuLIN N] 25 unit SUBCUT BIDAC #1 syringe 10/31/16 11/09/16 Rx Pantoprazole Tab [Protonix Tab] 40 mg PO DAILY #30 tablet 10/31/16 11/09/16 Rx guaiFENesin/DM ER 600-30 [Mucinex 1 tablet PO BID tablet 10/31/16 11/09/16 Rx Dm 600-30 MG] Review of System - Review of System 12 point system: reviewed and no additional remarkable complaints except as stated - Review of System Constitutional: Present: chills, fever, weakness. Absent: diaphoresis Head/Ears/Nose/Throat: Absent: nasal drainage, sore throat Respiratory: Present: cough, respiratory distress. Absent: wheezing Cardiovascular: Absent: chest pain Gastrointestinal: Present: nausea, vomiting. Absent: abdominal pain Medical,Surgical,& Family Hx - Social History Smoking Status: Unknown if ever smoked Frequency of Alcohol Use: Unknown Type of Drug Use: Unknown Exam Vital Signs: Vital Signs Temperature 100.1 F H 11/09/16 14:41 Pulse Rate 117 H 11/09/16 14:41 Respiratory Rate 20 11/09/16 14:41 Blood Pressure 128/79 11/09/16 14:41 O2 Sat by Pulse Oximetry 92 L 11/09/16 14:41 Results - Labs CBC & BMP: 11/09/16 16:04 11/09/16 16:04 Lab Results: I have reviewed the patients labs Labs: Laboratory Tests 11/09/16 11/09/16 15:39 16:04 Lactic Acid 1.3 Total Bilirubin 0.70 AST 20 ALT 30 Alkaline Phosphatase 48 Urine Ketones Negative Urine RBC 2 Urine WBC 2 Ur Culture Indicated? Not indicated - Impressions CT of the head shows no acute intracranial abnormality. Chest x-ray shows:Increased diffuse interstitial markings of the lungs, either mild fluid overload versus airways disease. Persistent pulmonary hypoinflation with atelectasis. Disposition Clinical Impression: Pneumonia, Acute dyspnea Case discussed with: patient, patient's family Disposition: Still a Patient Condition: Guarded Time of Disposition: 17:08
[2016-11-09 16:43] LABS: Basophils # 0.1 10*3/uL (0.0-0.2); Basophils % 0.6 % (0.0-0.8); Eosinophils # 0.1 10*3/uL (0.0-0.87); Eosinophils % 0.5 % (0.00-10.9); Hematocrit 38.9 VOL% (35.7-47.0); Hemoglobin 12.5 GM/DL (12.0-16.0); Immature Granulocytes % 0.6 %; Immature Granulocytes Absolute 0.06 #; Lymphocytes # 0.6 10*3/uL (1.4-4.0); Lymphocytes % 5.7 % (21.3-54.2); Mean Corpuscular HGB Conc 32.1 GM/DL (32-36); Mean Corpuscular Hemoglobin 28 PG (27-34); Mean Corpuscular Volume 87.6 FL (87-102); Mean Platelet Volume 9.7 FL (9.6-12.0); Monocytes # 0.8 10*3/uL (0.11-0.8); Neutrophils # 9.3 10*3/uL (1.4-7.4); Neutrophils % 85.6 % (38.7-73.9); Platelet Count 123 T/CUMM (130-400); Red Blood Count 4.44 MC/CUMM (3.8-5.5); Red Cell Distribution Width 16.2 % (9.3-17.3); White Blood Count 10.8 T/CUMM (4-12)
[2016-11-09] MEDS ORDERED: ALBUTEROL/IPRATROPIUM 3 ML NEB RESP TX STA (16:48)
[2016-11-09 16:59] LABS: Apearance,Urine CLOUDY (Clear); Bilirubin,Urine Negative (Negative); Blood, Urine Small mg/dL (Negative); Glucose,Urine (UA) 50 mg/dL (Negative); Ketones,Urine Negative (Negative); Mucus,Urine Occasional /LPF (Occasional); Nitrite,Urine Negative (Negative); Protein,Urine 30 MG/DL; RBC,Urine 2 /HPF (0-4); Squamous Epithelial Cell,Urine Occasional /HPF (0-10); Urine Color Yellow (Yellow); Urine Specific Gravity 1.018 (1.001-1.035); Urine Urobilinogen < 2.0 EU/DL (0.2-1.0); WBC,Urine 2 /HPF (0-6)
[2016-11-09 17:01] LABS: Lactic Acid 1.3 MMOL/L (0.4-2.0)
[2016-11-09 17:02] LABS: Albumin 3.2 G/DL (3.4-5.0); Bilirubin,Total 0.7 MG/DL (0.2-1.0); Calcium 8.3 MG/DL (8.5-10.1); Osmolality,Calculated 285.3 MOS/KG (273-304); Potassium 3.5 MMOL/L (3.5-5.1); Total Protein 5.8 G/DL (6.4-8.3)
[2016-11-09] MEDS ORDERED: LEVOFLOXACIN INJ 150 ML IV ONE (17:15)
[2016-11-09] MEDS: LEVOFLOXACIN INJ 750 MG in PREMIX 1 EACH IV SCH (17:21)
--- NOTE | 2016-11-09 17:28 | Hospitalist History & Physical ---
Assessment and Plan (1) Pneumonia Status: Acute Assessment and plan: Chest x-ray suggested increased diffuse interstitial markings of the lungs the mild fluid overload patient that we disease and persistent pulmonary hypoinflation with atelectasis. Blood cultures were obtained; we start empiric antibiotics, inhaled bronchodilators, and intravenous corticosteroids. We will recheck chest x-ray in a.m. Current Visit: Yes (2) Chronic narcotic use Status: Acute Assessment and plan: The family verbalized concern regarding the patient's mismanagement of her medications. They reported that the patient took her p.m. medications this morning. This indeed may be in a troponin factor to her decreased oxygen saturations. We will consult social studies teacher to evaluate the home living situation. The daughter reports that every time the patient returns to her home to live alone, some sort of event transpires this subsequently lanced her back into the hospital. Current Visit: No (3) Diabetes mellitus Status: Chronic Assessment and plan: We will start Accu-Cheks with sliding scale coverage. Current Visit: No Qualifiers: Diabetes mellitus complication status: with hyperglycemia History of Present Illness Chief complaint: Shortness of breath/weakness History of present illness: This is a chronically ill 71-year-old female that presented to the ED at [facility] this afternoon for the evaluation of shortness of breath. Patient has a very extensive medical history significant for: Depression, Parkinson's disease, overactive bladder, chronic obstructive pulmonary disease, morbid obesity, hypertension, interstitial lung disease, hearing loss, [id number] diabetes mellitus, hypothyroidism, gouty arthritis, asthma, obstructive sleep apnea, pneumonia, urinary incontinence, chronic urinary tract infections, hemorrhoids, chronic back pain, arthritis, and fibromyalgia. The patient has a surgical history significant for: Appendectomy, cholecystectomy, colonoscopy, hysterectomy, rotator cuff repair, lumbar disc discectomy, carpal tunnel release, and retinal surgery. The family reports the onset of symptoms earlier today. They report that the patient was being followed by a home health nurse who had been monitoring her oxygen saturations. They report that she was seen by the home health nurse today and that the home health nurse advised them to bring the patient to the emergency room for further evaluation after determining that her oxygen saturations were very low" would not come up". In addition, the family reports that the patient has been running fever all day however they have not checked her temperature. She also reported to her family that she was having chills earlier and that she was unable to get up out of bed on her own. The family reported that the patient mistakenly took her nighttime meds this morning. Ironically, the patient was recently discharged from [facility] on October for subsequent diagnosis of pneumonia. The patient was assessed at the time of ED presentation. The patient was noted to be mildly lethargic; however arousable. She was noted to be febrile with a temperature of 100.1. Labs were obtained; complete blood count reported white blood cell count 18.8, hemoglobin 12.5, hematocrit 38.9, and platelet count 123. Complete metabolic profile reported a sodium at 141, potassium 3.5, chloride 104, BUN 9, creatinine 0.60, glucose 205, lactic acid 1.3, calcium 8.3 , albumin 3.2. Urinalysis was obtained and was essentially negative. Chest x- ray reported increased diffuse interstitial markings of the lungs, either mild fluid overload versus airway disease, and persistent pulmonary hypoinflation with atelectasis. CT brain reported no acute intracranial pathology, moderate generalized atrophy, and changes consistent with microvascular disease. After brief discussion with both Dr. Walls and Dr. Alcaraz, the patient will be admitted to the hospitalist service for continuation of care. Home Medications Medication Instructions Recorded Confirmed Type ALPRAZolam [Xanax] 0.5 mg PO TID PRN 11/29/14 11/09/16 History Allopurinol [Zyloprim] 300 mg PO DAILY 11/29/14 11/09/16 History Carbidopa/Levodopa Cr 25-100 1 tablet PO BEDTIME 04/15/15 11/09/16 History [Sinemet Cr 25-100] Citalopram [CeleXA] 40 mg PO DAILY 04/15/15 11/09/16 History Ondansetron Tab [Zofran Tab] 4 mg PO Q4H PRN 04/15/15 11/09/16 History Cyanocobalamin (Vitamin B-12) 1,000 mcg IM Q30D 07/19/16 11/09/16 History [Vitamin B-12] Polyethylene Glycol Powder 17 gm PO DAILY 10/02/16 11/09/16 History [Miralax] Carisoprodol 350 mg PO TID 10/24/16 11/09/16 History Estradiol [Estrace Tab] 0.5 mg PO DAILY 10/24/16 11/09/16 History Hydrocodone/Acetaminophen 1 tablet PO Q6HR PRN 10/24/16 11/09/16 History [Hydrocodon-Acetaminophn 10-325] Mirabegron [Myrbetriq] 25 mg PO DAILY 10/24/16 11/09/16 History Albuterol/Ipratropium Neb [Duoneb] 3 ml RESP TX RT Q4H #90 vial 10/31/16 Rx Albuterol/Ipratropium Neb [Duoneb] 3 ml RESP TX RT Q4H PRN 10/31/16 11/09/16 Rx Benzonatate [Tessalon] 100 mg PO BID PRN #100 capsule 10/31/16 11/09/16 Rx Docusate Sodium Cap [Colace Cap] 100 mg PO BID PRN capsule 10/31/16 11/09/16 Rx Fluconazole Tab [Diflucan Tab] 100 mg PO DAILY #7 tablet 10/31/16 11/09/16 Rx Fluticasone/Salmeterol 250-50 1 puff INH BID 10/31/16 11/09/16 Rx [Advair 250-50] Insulin NPH [HumuLIN N] 25 unit SUBCUT BIDAC #1 syringe 10/31/16 11/09/16 Rx Pantoprazole Tab [Protonix Tab] 40 mg PO DAILY #30 tablet 10/31/16 11/09/16 Rx guaiFENesin/DM ER 600-30 [Mucinex 1 tablet PO BID tablet 10/31/16 11/09/16 Rx Dm 600-30 MG] Allergies Allergy/AdvReac Type Severity Reaction Status Date / Time Penicillins Allergy RASH Verified 07/17/16 21:13 phenobarbital Allergy RASH Verified 07/17/16 21:13 Medical,Surgical,& Family Hx - Social History Smoking Status: Unknown if ever smoked Frequency of Alcohol Use: Unknown Type of Drug Use: Unknown 12 point system: reviewed and no additional remarkable complaints except as stated Exam - Constitutional Vitals: Period Temp Pulse Resp BP Sys/Melendez Pulse Ox Last 24 Hr 100.1 F-100.1 F 117-117 20-20 128-128/79-79 92 General appearance: mild distress, morbidly obese - Head Head exam: Present: normal inspection, normocephalic, atraumatic - Eye Eye exam: Present: EOMI. Absent: conjunctival injection Pupils: Present: LELIA, normal accommodation - ENT ENT exam: Present: normal exam, normal external ear exam, normal oropharynx - Neck Neck exam: Present: normal inspection. Absent: lymphadenopathy, meningismus, thyromegaly - Respiratory Respiratory exam: Present: decreased breath sounds. Absent: rales, rhonchi, stridor, wheezes - Cardiovascular Cardiovascular exam: Present: regular rate and rhythm. Absent: carotid bruit, diastolic murmur, gallop, JVD, rubs, systolic murmur - GI/Abdominal GI/Abdominal exam: Present: normal bowel sounds, soft - Extremities Exam Extremities exam: Present: edema (+2 edema) - Back Exam Back exam: Present: normal inspection ( noted to bilateral lower extremity) - Neurological Exam Neurological exam: Present: alert, oriented X3, CN II-XII intact - Psychiatric Psychiatric exam: Present: normal affect, normal mood - Skin Skin exam: Present: normal color, warm, dry Results - Labs CBC & BMP: 11/09/16 16:04 11/09/16 16:04 Lab Results: I have reviewed the past 24 hour labs
[2016-11-09] MEDS ORDERED: CYANOCOBALAMIN 1000 MCG/1 ML VIAL IM SCH (18:00)
[2016-11-09] MEDS ORDERED: ALBUTEROL/IPRATROPIUM 3 ML NEB RESP TX PRN (18:02)
[2016-11-09] MEDS ORDERED: DOCUSATE SODIUM 100 MG CAPSULE PO PRN (18:02)
[2016-11-09] MEDS ORDERED: DEXTROSE 50% 25 GM/50 ML VIAL IV PRN (18:02)
[2016-11-09] MEDS ORDERED: GLUCAGON 1 MG VIAL IM PRN (18:02)
[2016-11-09] MEDS ORDERED: ONDANSETRON 4 MG/2 ML VIAL IV PRN (18:02)
[2016-11-09] MEDS: ENOXAPARIN 40 MG/0.4 ML SYRINGE SUBCUT SCH (18:37)
[2016-11-09] MEDS: methylPREDNISolone SOD SUC 40 MG/1 ML VIAL IV SCH (18:37)
[2016-11-09] MEDS: SODIUM CHLORIDE 0.9% 1,000 ML IV SCH (18:38)
[2016-11-09] MEDS: ALBUTEROL/IPRATROPIUM 3 ML NEB RESP TX SCH ×2 (18:40→23:10)
[2016-11-09] MEDS: CLINDAMYCIN INJ 600 MG in PREMIX 1 EACH IV SCH (19:59)
[2016-11-09] MEDS: guaiFENesin/DM ER 600-30 MG TABLET PO SCH (20:28)
[2016-11-09] MEDS: CARISOPRODOL 350 MG TABLET PO SCH (20:28)
[2016-11-09] MEDS: FLUTICASONE/SALMETEROL 250-50 DISKUS 14 DOSE INH SCH (20:28)
[2016-11-09] MEDS: CARBIDOPA/LEVODOPA CR 25-100 MG TABLET PO SCH (20:28)
[2016-11-09] MEDS: ALPRAZolam 0.5 MG TABLET PO PRN (20:33)
[2016-11-09] MEDS: BENZONATATE 100 MG CAPSULE PO PRN (20:33)
[2016-11-09] MEDS: INSULIN REGULAR 100 UNIT/ML SUBCUT SCH (20:52)
[2016-11-10] MEDS: SODIUM CHLORIDE 0.9% 1,000 ML IV SCH ×4 (00:43→23:54)
[2016-11-10] MEDS: methylPREDNISolone SOD SUC 40 MG/1 ML VIAL IV SCH ×6 (00:43→23:51)
[2016-11-10] MEDS: ALBUTEROL/IPRATROPIUM 3 ML NEB RESP TX SCH ×6 (03:20→23:54)
[2016-11-10] MEDS: CLINDAMYCIN INJ 600 MG in PREMIX 1 EACH IV SCH ×3 (03:59→19:58)
[2016-11-10 07:38] LABS: Hematocrit 33.1 VOL% (35.7-47.0); Hemoglobin 10.9 GM/DL (12.0-16.0); Immature Granulocytes % 0.8 %; Immature Granulocytes Absolute 0.06 #; Lymphocytes # 0.8 10*3/uL (1.4-4.0); Mean Corpuscular HGB Conc 32.9 GM/DL (32-36); Mean Corpuscular Hemoglobin 28 PG (27-34); Mean Corpuscular Volume 85.5 FL (87-102); Mean Platelet Volume 9.5 FL (9.6-12.0); Monocytes # 0.1 10*3/uL (0.11-0.8); Monocytes % 1.2 % (1.7-12.7); Neutrophils # 6.4 10*3/uL (1.4-7.4); Platelet Count 107 T/CUMM (130-400); Red Blood Count 3.87 MC/CUMM (3.8-5.5); Red Cell Distribution Width 15.9 % (9.3-17.3); White Blood Count 7.4 T/CUMM (4-12)
[2016-11-10 08:06] LABS: Band Neutrophils 5 % (0-10); Hypochromasia 1+; Lymphocytes 8 % (20-55); Platelet Estimate Decreased; Segmented Neutrophils 86 % (50-85); Total Cells Counted 100
[2016-11-10 08:07] LABS: Calcium 7.4 MG/DL (8.5-10.1); Osmolality,Calculated 287.3 MOS/KG (273-304); Potassium 3.7 MMOL/L (3.5-5.1)
[2016-11-10] MEDS: INSULIN NPH 100 UNIT/ML SUBCUT SCH ×2 (08:24→16:55)
[2016-11-10] MEDS: INSULIN REGULAR 100 UNIT/ML SUBCUT SCH ×4 (08:24→21:44)
[2016-11-10] MEDS: POLYETHYLENE GLYCOL POWDER 17 GM PACK PO SCH (08:25)
[2016-11-10] MEDS: ALPRAZolam 0.5 MG TABLET PO PRN ×2 (08:25→21:31)
[2016-11-10] MEDS: ESTRADIOL 1 MG TABLET PO SCH (08:25)
[2016-11-10] MEDS: guaiFENesin/DM ER 600-30 MG TABLET PO SCH ×3 (08:25→19:59)
[2016-11-10] MEDS: CITALOPRAM 40 MG TABLET PO SCH (08:25)
[2016-11-10] MEDS: PANTOPRAZOLE 40 MG TABLET PO SCH (08:25)
[2016-11-10] MEDS: ALLOPURINOL 300 MG TABLET PO SCH (08:25)
[2016-11-10] MEDS: FLUTICASONE/SALMETEROL 250-50 DISKUS 14 DOSE INH SCH ×2 (08:26→20:01)
[2016-11-10] MEDS: CARISOPRODOL 350 MG TABLET PO SCH ×3 (08:27→21:31)
[2016-11-10] MEDS: MIRABEGRON 25 MG PO SCH (08:58)
[2016-11-10] MEDS: LEVOFLOXACIN INJ 750 MG in PREMIX 1 EACH IV SCH (16:06)
--- NOTE | 2016-11-10 16:50 | Hospitalist Progress Note ---
Assessment and Plan - Time spent with patient Time spent with patient: Less than 30 minutes (1) Pneumonia Status: Acute Assessment and plan: Improved, continue Levaquin and clindamycin. Follow-up with Dr. Noonan outpatient. Current Visit: No Qualifiers: (2) COPD exacerbation Status: Resolved Assessment and plan: Patient continues to have some wheezing. Continue steroids and inhaled therapy. Current Visit: No (3) Diabetes mellitus Status: Chronic Assessment and plan: Continue Accu-Cheks and sliding scale insulin. Current Visit: No Qualifiers: Diabetes mellitus complication status: with hyperglycemia (4) Weak Status: Acute Assessment and plan: PT and OT to evaluate. Current Visit: Yes (5) Hypoxia Status: Resolved Assessment and plan: Follow-up with Dr. Noonan as an outpatient and can consider another formal sleep study to resume CPAP use. Current Visit: No Hospitalist: Subjective Interval history: Patient lying comfortably in bed, in no acute distress and no acute events overnight. Patient states she is feeling better and denies any more episodes of shortness of breath. She states she still feels weak especially in her lower extremities bilaterally. Her daughter which is present, states that her weakness came on suddenly yesterday and that this is 1 of several admissions over the past few months. She states she used to use a CPAP machine during the night but was told at some point that she did not did not need it anymore. She now wears nasal cannula oxygen 2 L at night. Her daughter, which is present says that she is mainly a mouth breather and continues to snore and has frequent awakenings at night. Patient remains afebrile, blood cultures negative to date and white count is normal. Patient denies nausea, vomiting, constipation, diarrhea, chest pain, shortness of breath or pain/swelling in lower extremity. Exam - Constitutional Vitals: Period Temp Pulse Resp BP Sys/Melendez Pulse Ox Last 24 Hr 95.9 F-99.4 F 69-107 14-28 112-162/57-79 90-105 General appearance: morbidly obese - Head Head exam: Present: normocephalic - Eye Eye exam: Present: EOMI Pupils: Present: LELIA - ENT ENT exam: Present: normal exam - Respiratory Respiratory exam: Present: wheezes (Expiratory wheezing of a right upper lung mi.) - Cardiovascular Cardiovascular exam: Present: regular rate and rhythm - GI/Abdominal GI/Abdominal exam: Present: normal bowel sounds, soft - Extremities Exam Extremities exam: Present: normal inspection - Neurological Exam Neurological exam: Present: alert, oriented X3 - Psychiatric Psychiatric exam: Present: normal affect, normal mood - Skin Skin exam: Present: normal color, warm Results - Labs CBC & BMP: 11/10/16 07:29 11/10/16 07:29 Lab Results: I have reviewed the past 24 hour labs
[2016-11-10] MEDS: ENOXAPARIN 40 MG/0.4 ML SYRINGE SUBCUT SCH ×2 (16:57→17:15)
[2016-11-10] MEDS: CARBIDOPA/LEVODOPA CR 25-100 MG TABLET PO SCH (19:59)
[2016-11-10] MEDS: BENZONATATE 100 MG CAPSULE PO PRN (19:59)
[2016-11-10] MEDS ORDERED: POLYETHYLENE GLYCOL POWDER 17 GM PACK PO ONE (20:30)
[2016-11-10] MEDS: DESITIN 4OZ/NYSTATIN 15 GRAM MIXTURE PASTE TOP SCH (21:32)
[2016-11-11] MEDS: ALBUTEROL/IPRATROPIUM 3 ML NEB RESP TX SCH ×6 (03:25→23:52)
[2016-11-11] MEDS: CLINDAMYCIN INJ 600 MG in PREMIX 1 EACH IV SCH ×3 (03:37→22:29)
[2016-11-11] MEDS: methylPREDNISolone SOD SUC 40 MG/1 ML VIAL IV SCH ×3 (05:59→18:47)
[2016-11-11] MEDS: SODIUM CHLORIDE 0.9% 1,000 ML IV SCH ×2 (06:36→11:14)
[2016-11-11] MEDS: INSULIN NPH 100 UNIT/ML SUBCUT SCH ×2 (09:02→17:34)
[2016-11-11] MEDS: CITALOPRAM 40 MG TABLET PO SCH (09:03)
[2016-11-11] MEDS: INSULIN REGULAR 100 UNIT/ML SUBCUT SCH ×4 (09:03→22:27)
[2016-11-11] MEDS: POLYETHYLENE GLYCOL POWDER 17 GM PACK PO SCH (09:04)
[2016-11-11] MEDS: guaiFENesin/DM ER 600-30 MG TABLET PO SCH ×2 (09:04→22:27)
[2016-11-11] MEDS: PANTOPRAZOLE 40 MG TABLET PO SCH (09:04)
[2016-11-11] MEDS: ESTRADIOL 1 MG TABLET PO SCH (09:04)
[2016-11-11] MEDS: ALLOPURINOL 300 MG TABLET PO SCH (09:05)
[2016-11-11] MEDS: DESITIN 4OZ/NYSTATIN 15 GRAM MIXTURE PASTE TOP SCH ×2 (09:07→22:29)
[2016-11-11] MEDS: FLUTICASONE/SALMETEROL 250-50 DISKUS 14 DOSE INH SCH ×2 (09:07→22:28)
[2016-11-11] MEDS: CARISOPRODOL 350 MG TABLET PO SCH ×3 (11:11→23:15)
[2016-11-11] MEDS: MIRABEGRON 25 MG PO SCH (11:11)
[2016-11-11] MEDS ORDERED: ACETAMINOPHEN 325 MG TABLET PO PRN (12:30)
--- NOTE | 2016-11-11 15:53 | Hospitalist Progress Note ---
Assessment and Plan (1) Pneumonia Status: Acute Assessment and plan: Continue duo nebs, continue clindamycin and Levaquin. O2 as needed, bilateral interstitial marking may be bilateral pneumonia vs heart failure. BNP, echo normal ef 60% from September 2016. WBC not that high Current Visit: Yes (2) COPD exacerbation Status: Resolved Assessment and plan: due to exposures of chemicals and dust, Continue duo nebs and steroids. Current Visit: No (3) Diabetes mellitus Status: Chronic Assessment and plan: Blood sugars poorly controlled. Increase insulin twice a day to 30 units Current Visit: No Qualifiers: Diabetes mellitus complication status: with hyperglycemia (4) GERD (gastroesophageal reflux disease) Status: Chronic Assessment and plan: Continue Protonix daily Current Visit: No (5) Weak Status: Acute Assessment and plan: PT and OT consult, patient turned down rehab but is interested in home health. Current Visit: Yes (6) UTI (urinary tract infection) Status: Acute Assessment and plan: No evidence of UTI on review of labs. Discussed with daughter. Current Visit: Yes Hospitalist: Subjective Interval history: Patient is wanting some Tylenol for pain. She needs a little bit of medicine for sleep. We will Hep-Lock her fluids currently running at 125 an hour. Patient is eating drinking and drinking okay. Patient really does not want to go to rehab to get stronger. She currently is living with her daughter and plans to return home with her daughter. Her daughter is at bedside and does not seem to be happy with her care. Exam - Constitutional Vitals: Period Temp Pulse Resp BP Sys/Melendez Pulse Ox Last 24 Hr 96.6 F-98.9 F 65-114 14-22 116-152/57-74 90-99 Exam: Heart Rate-[RRR] Lungs-[diminished with rhonchi at bases, some wheezing] GI-[+bs soft, NT, obese ] Neuro [Motor 4/5],left hip no pain with rotation, [alert and oriented times 3] psych [normal mood and flat affect] General [no acute distress] skin bruising due to falls Results - Labs CBC & BMP: 11/10/16 07:29 11/10/16 07:29 Lab Results: I have reviewed the past 24 hour labs - Diagnostic Findings Procedure: Chest x-ray: report reviewed by me (pul edema), CT: report reviewed by me (head generalized atrophy ), Ultrasound: report reviewed by me (echo ef 60 % with grade 1 diastolic dysfunction )
[2016-11-11] MEDS: LEVOFLOXACIN INJ 750 MG in PREMIX 1 EACH IV SCH (16:14)
[2016-11-11] MEDS: FUROSEMIDE 40 MG/4 ML VIAL IV SCH (16:15)
[2016-11-11] MEDS: POTASSIUM CHLORIDE 20 MEQ TABLET PO SCH (16:17)
[2016-11-11 16:28] LABS: ABG Base Excess -0.6 MMOL/L (-2.5-2.5); ABG HCO3 23.9 MMOL/L (20-26); ABG Oxygen Saturation 96.7 % (95-100); ABG PCO2 42.8 MM HG (35-48); ABG PH 7.371 (7.35-7.45); ABG PO2 84.7 MM HG (80-95); ABG TCO2 22.7 MMOL/L (23-27); Allen Test Positive
[2016-11-11] MEDS: ENOXAPARIN 40 MG/0.4 ML SYRINGE SUBCUT SCH (17:37)
[2016-11-11] MEDS: ZALEPLON 5 MG CAPSULE PO PRN (22:26)
[2016-11-11] MEDS: CARBIDOPA/LEVODOPA CR 25-100 MG TABLET PO SCH (22:26)
[2016-11-11] MEDS: BENZONATATE 100 MG CAPSULE PO PRN (22:27)
[2016-11-11] MEDS: ALPRAZolam 0.5 MG TABLET PO PRN (22:27)
[2016-11-12] MEDS: ALBUTEROL/IPRATROPIUM 3 ML NEB RESP TX SCH ×6 (03:41→23:54)
[2016-11-12 06:33] LABS: Hemoglobin 10.2 GM/DL (12.0-16.0); Immature Granulocytes % 1.1 %; Immature Granulocytes Absolute 0.06 #; Lymphocytes # 0.9 10*3/uL (1.4-4.0); Lymphocytes % 16.1 % (21.3-54.2); Mean Corpuscular HGB Conc 32.9 GM/DL (32-36); Mean Corpuscular Hemoglobin 28 PG (27-34); Mean Corpuscular Volume 85.4 FL (87-102); Monocytes # 0.2 10*3/uL (0.11-0.8); Monocytes % 2.6 % (1.7-12.7); Neutrophils # 4.6 10*3/uL (1.4-7.4); Neutrophils % 80.2 % (38.7-73.9); Platelet Count 123 T/CUMM (130-400); Red Blood Count 3.63 MC/CUMM (3.8-5.5); Red Cell Distribution Width 15.9 % (9.3-17.3); White Blood Count 5.7 T/CUMM (4-12)
[2016-11-12 06:57] LABS: Calcium 8.1 MG/DL (8.5-10.1); Magnesium 1.5 MG/DL (1.8-2.4); Osmolality,Calculated 281.5 MOS/KG (273-304); Potassium 3.6 MMOL/L (3.5-5.1)
[2016-11-12] MEDS: methylPREDNISolone SOD SUC 40 MG/1 ML VIAL IV SCH ×5 (07:03→23:03)
[2016-11-12] MEDS: CLINDAMYCIN INJ 600 MG in PREMIX 1 EACH IV SCH ×3 (07:09→23:02)
[2016-11-12 07:13] LABS: Band Neutrophils 1 % (0-10); Hypochromasia 1+; Lymphocytes 15 % (20-55); Microcytosis 1+; Segmented Neutrophils 82 % (50-85); Total Cells Counted 100
[2016-11-12 07:14] LABS: Platelet Estimate Adequate; Tear Drop Cells Slight
--- NOTE | 2016-11-12 07:46 | Physician Query Form ---
CLICK EDIT DOCUMENT TO SELECT QUERY ANSWER --> OK --> SIGN Adia Richard RN, CCDS Certified Clinical Ink Grinder W) [phone] (f) [phone] [email or web address] PROVIDERS: Make your selection(s) from the choices in EACH section by typing an "x" and enter comments in the comment section. Please use your independent medical judgment in providing your response. This request does not imply that any particular answer is desired or expected. CLINICAL INDICATORS: (Providers should not edit this section) The below diagnosis was documented in the record, but is not consistently noted in subsequent documentation. The medical record indicates that the patient was admitted with Sepsis, Normal WBC, BNP 96#, on the 2nd: "bilateral interstitial marking may be bilateral pneumonia vs heart failure", and the patient is on Antibiotics. Diagnosis: PNEUMONIA Please clarify the following: ( x) The above diagnosis was monitored, evaluated, and/or treated and is a confirmed diagnosis ( ) The above diagnosis was ruled out ( ) The above diagnosis is still a likely, suspected, probable diagnosis ( ) Other, please specify: ( ) Clinically unable to determine COMMENTS: PLEASE ALSO DOCUMENT RESPONSE IN PROGRESS NOTES AND/OR DISCHARGE SUMMARY Use of terms such as suspected, likely, or probable (associated with a specific diagnosis that is being evaluated, monitored, or treated as if it exists) are acceptable and can be restated in the discharge summary if not ruled out. MTDD
[2016-11-12] MEDS: INSULIN REGULAR 100 UNIT/ML SUBCUT SCH ×4 (08:36→20:06)
[2016-11-12] MEDS: INSULIN NPH 100 UNIT/ML SUBCUT SCH ×2 (08:37→16:44)
[2016-11-12] MEDS: POLYETHYLENE GLYCOL POWDER 17 GM PACK PO SCH (08:38)
[2016-11-12] MEDS: FLUTICASONE/SALMETEROL 250-50 DISKUS 14 DOSE INH SCH ×2 (08:38→20:04)
[2016-11-12] MEDS: ALLOPURINOL 300 MG TABLET PO SCH (08:38)
[2016-11-12] MEDS: guaiFENesin/DM ER 600-30 MG TABLET PO SCH ×2 (08:38→20:06)
[2016-11-12] MEDS: MIRABEGRON 25 MG PO SCH (08:38)
[2016-11-12] MEDS: CITALOPRAM 40 MG TABLET PO SCH (08:38)
[2016-11-12] MEDS: PANTOPRAZOLE 40 MG TABLET PO SCH (08:39)
[2016-11-12] MEDS: POTASSIUM CHLORIDE 20 MEQ TABLET PO SCH (08:39)
[2016-11-12] MEDS: DESITIN 4OZ/NYSTATIN 15 GRAM MIXTURE PASTE TOP SCH ×2 (08:39→20:07)
[2016-11-12] MEDS: ESTRADIOL 1 MG TABLET PO SCH (08:39)
[2016-11-12] MEDS ORDERED: MAGNESIUM SULF RIDER 2 GM in PREMIX 1 EACH IV PRN (09:26)
[2016-11-12] MEDS ORDERED: MAGNESIUM SULF RIDER 4 GM in PREMIX 1 EACH IV PRN (09:26)
[2016-11-12] MEDS: FUROSEMIDE 40 MG/4 ML VIAL IV SCH (09:45)
[2016-11-12] MEDS: CARISOPRODOL 350 MG TABLET PO SCH ×3 (09:45→20:15)
--- NOTE | 2016-11-12 10:15 | XRay Report ---
XR hip 2V LT Indication: Pain and weakness. Comparison: None. Technique: AP and lateral images of the left hip were submitted. Findings: No acute bony or significant soft tissue abnormality is noted. Impression: 1. No evidence of acute pathology. 11/12/2016 10:12 AM PROCEDURE INTERPRETED AT [facility] DEPARTMENT OF RADIOLOGY Final Report Signed by: Dr. Saúl Richard
--- NOTE | 2016-11-12 12:18 | Orthopedic Consult Note ---
History of Present Illness Chief complaint: Left leg weakness History of present illness: Ms. Foster is a 71 year old female has been having some issues with her left leg. She recently had a fall onto her right side, but awoke the next morning with some left leg pain and weakness. She complains more of weakness and pain, states her leg "folds up" when she tries to walk. She does use a Rollator type walker and use this prior to the fall as well. She has lower back issues, Dr. Martin is following and managing that on an outpatient basis. Home Medications Medication Instructions Recorded Confirmed Type ALPRAZolam [Xanax] 0.5 mg PO TID PRN 11/29/14 11/09/16 History Allopurinol [Zyloprim] 300 mg PO DAILY 11/29/14 11/09/16 History Carbidopa/Levodopa Cr 25-100 1 tablet PO BEDTIME 04/15/15 11/09/16 History [Sinemet Cr 25-100] Citalopram [CeleXA] 40 mg PO DAILY 04/15/15 11/09/16 History Ondansetron Tab [Zofran Tab] 4 mg PO Q4H PRN 04/15/15 11/09/16 History Cyanocobalamin (Vitamin B-12) 1,000 mcg IM Q30D 07/19/16 11/09/16 History [Vitamin B-12] Polyethylene Glycol Powder 17 gm PO DAILY 10/02/16 11/09/16 History [Miralax] Carisoprodol 350 mg PO TID 10/24/16 11/09/16 History Estradiol [Estrace Tab] 0.5 mg PO DAILY 10/24/16 11/09/16 History Hydrocodone/Acetaminophen 1 tablet PO Q6HR PRN 10/24/16 11/09/16 History [Hydrocodon-Acetaminophn 10-325] Mirabegron [Myrbetriq] 25 mg PO DAILY 10/24/16 11/09/16 History Albuterol/Ipratropium Neb [Duoneb] 3 ml RESP TX RT Q4H #90 vial 10/31/16 Rx Albuterol/Ipratropium Neb [Duoneb] 3 ml RESP TX RT Q4H PRN 10/31/16 11/09/16 Rx Benzonatate [Tessalon] 100 mg PO BID PRN #100 capsule 10/31/16 11/09/16 Rx Docusate Sodium Cap [Colace Cap] 100 mg PO BID PRN capsule 10/31/16 11/09/16 Rx Fluconazole Tab [Diflucan Tab] 100 mg PO DAILY #7 tablet 10/31/16 11/09/16 Rx Fluticasone/Salmeterol 250-50 1 puff INH BID 10/31/16 11/09/16 Rx [Advair 250-50] Insulin NPH [HumuLIN N] 25 unit SUBCUT BIDAC #1 syringe 10/31/16 11/09/16 Rx Pantoprazole Tab [Protonix Tab] 40 mg PO DAILY #30 tablet 10/31/16 11/09/16 Rx guaiFENesin/DM ER 600-30 [Mucinex 1 tablet PO BID tablet 10/31/16 11/09/16 Rx Dm 600-30 MG] Allergies Allergy/AdvReac Type Severity Reaction Status Date / Time Penicillins Allergy RASH Verified 07/17/16 21:13 phenobarbital Allergy RASH Verified 07/17/16 21:13 12 point system: reviewed and no additional remarkable complaints except as stated Medical,Surgical,& Family Hx - Medical History Cardio: History of: Hypertension Psychological: History of: Anxiety Disorders No history of: Behavior Problems, Bipolar Disorder, Depression, Psychiatric/ Substance Abuse Tx, Schizophrenia, Violent Behavior, Psychiatric Problems Neurology: No history of: Seizures HEENT: History of: Ear Problem (hard of hearing), Eye Problem (cataract surgery) No history of: Dental Problems Endocrine: History of: Diabetes Mellitus (NIDDM) No history of: Adrenal Disease, Diabetes Mellitus (IDDM), Thyroid Disorder, Endocrine Cancer, Endocrine Problems Rheumatology: History of;: Gout Respiratory: History of: Asthma, Bronchitis, COPD, Obstructive Sleep Apnea, Pneumonia Genitourinary: History of: Bladder Problem (incontient episodes), Recurring Urinary Tract Infections Gastrointestinal: History of: GERD, Hemorrhoids No history of: Gastrointestinal Bleed, Liver Problems, GI Problems Musculoskeletal: History of: Back/Neck Problems (chronic back pain), Musculoskeletal Problems (arthritis) No history of: Amputation Hematology: No history of: Anemia, Blood Transfusion Reaction, Bleeding Problems, Clotting Problems, Sickle Cell Disease, Hematologic Cancer, Blood Disorders Other: No history of: Anesthesia Reactions, Eczema, HIV - Surgical History Cardiac Surgeries: Patient Denies: Femoral-Popliteal Bypass Graft, Cardiac Catheterization, Cardiac Surgery, Carotid Endarterectomy, Internal Defibrillator, Vascular Access Devices Thoracic Surgeries: Patient denies;: Kidney (Renal Surgery), Lithotripsy, Nephrectomy, Organ Transplant, Lobectomy Neurologic Surgeries: Patient denies: Neurologic Surgery HEENT Surgeries: Surgical HX of: Eye Surgery (retinal surgery) Patient denies: Carotid Endarterectomy, Thyroid Surgery, Tonsilectomy & Adenoidectomy Abdominal Surgeries: Surgical HX of: Abdominal Surgery, Appendectomy, Cholecystectomy, Colonoscopy, EGD Patient denies: Gastric Bypass Surgery, Hernia Repair, Splenectomy Reproductive Surgeries: Surgical HX of;: Hysterectomy Patient denies;: Cystoscopy, Genitourinary Surgery Orthopedic Surgeries: Surgical HX of;: Orthopedic Surgery (rotator cuff, carpal tunnel release), Spinal Surgery (lumbar disc surgery) Patient denies;: Implanted Devices, Total Hip Replacement, Total Knee Replacement - Family History Family History: Reports;: Family Cancer (sister,brother), Family Diabetes ( daughter), Family Heart Disease (mother), Family Stroke (son) Denies;: Family Anesthesia Reaction, Family Hypertension, Family Psychiatric Problems - Social History Smoking Status: Unknown if ever smoked Frequency of Alcohol Use: Unknown Type of Drug Use: Unknown Exam - Constitutional Vitals: Period Temp Pulse Resp BP Sys/Melendez Pulse Ox Last 24 Hr 97.0 F-98.2 F 70-90 16-20 110-147/60-74 93-100 Exam: Left lower extremity: Patient is sitting in the chair at the bedside. She has full hip range of motion flexion internal and external rotation without pain. She is nontender in the ankle and foot. She does have some crepitus to knee range of motion. She has 5 out of 5 strength to manual motor testing in hip flexors, knee flexors and extensors, foot dorsiflexors and plantar flexors. Results - Labs CBC & BMP: 11/12/16 05:43 11/12/16 05:43 - Diagnostic Findings Procedure: X-ray: image reviewed by me (Hip radiograph show mild degenerative changes, no fractures are noted) Assessment and Plan (1) Weakness of left lower extremity Status: Acute Assessment and plan: Discussed the findings with the patient and her family at the bedside today. No fractures are noted on the radiographs, her strength is intact to manual motor testing. I have recommended continued use of the walker as well as a supervised home physical therapy program for strengthening, gait training, and conditioning. No orthopedic follow-up is necessary unless patient has persistent symptoms or increased pain Current Visit: Yes
--- NOTE | 2016-11-12 14:27 | Hospitalist Progress Note ---
Assessment and Plan (1) Pneumonia Status: Acute Assessment and plan: Continue duo nebs, continue clindamycin and Levaquin. Normal bnp, echo on September 2016 normal Current Visit: Yes (2) COPD exacerbation Status: Resolved Assessment and plan: due to exposures of chemicals and dust, Continue duo nebs and steroids. Current Visit: No (3) Diabetes mellitus Status: Chronic Assessment and plan: BS still high cont NPH 30 units twice a day Current Visit: No Qualifiers: Diabetes mellitus complication status: with hyperglycemia (4) GERD (gastroesophageal reflux disease) Status: Chronic Assessment and plan: Continue Protonix daily Current Visit: No (5) Weak Status: Acute Assessment and plan: PT and OT consult, patient turned down rehab but is interested in home health. Current Visit: Yes Hospitalist: Subjective Interval history: She is morbidly obese. Patient was weaned off of oxygen satting 96% on room air. She is still complaining that her left leg was giving out even though she has adequate strength. I asked Dr. Gupta to see her and I thank him for his help. No evidence of fracture was found. We will treat her pain with as needed [place]. Her magnesium was very low and will be replaced. We have asked PT to work on her with her strengthening. Exam - Constitutional Vitals: Period Temp Pulse Resp BP Sys/Melendez Pulse Ox Last 24 Hr 97.0 F-98.2 F 70-90 16-20 110-161/60-86 93-100 Exam: Heart Rate-[RRR] Lungs-[diminished but more clear today GI-[+bs soft, NT, obese ] Neuro [Motor 5/5, alert and oriented times 3] psych [normal mood and flat affect] General [no acute distress] Results - Labs CBC & BMP: 11/12/16 05:43 11/12/16 05:43 Lab Results: I have reviewed the past 24 hour labs Labs: Blood cultures and urine culture negative no growth - Diagnostic Findings Procedure: X-ray: report reviewed by me (no evidence of fracture)
[2016-11-12] MEDS: LEVOFLOXACIN INJ 750 MG in PREMIX 1 EACH IV SCH (16:44)
[2016-11-12] MEDS: ENOXAPARIN 40 MG/0.4 ML SYRINGE SUBCUT SCH (18:14)
[2016-11-12] MEDS: ALPRAZolam 0.5 MG TABLET PO PRN (20:06)
[2016-11-12] MEDS: CARBIDOPA/LEVODOPA CR 25-100 MG TABLET PO SCH (20:06)
[2016-11-12] MEDS: BENZONATATE 100 MG CAPSULE PO PRN (20:06)
[2016-11-12] MEDS: ZALEPLON 5 MG CAPSULE PO PRN (23:03)
[2016-11-13] MEDS: ALBUTEROL/IPRATROPIUM 3 ML NEB RESP TX SCH ×6 (02:56→23:05)
[2016-11-13] MEDS: CLINDAMYCIN INJ 600 MG in PREMIX 1 EACH IV SCH ×3 (05:59→22:47)
[2016-11-13] MEDS: methylPREDNISolone SOD SUC 40 MG/1 ML VIAL IV SCH ×2 (05:59→18:15)
[2016-11-13] MEDS: POLYETHYLENE GLYCOL POWDER 17 GM PACK PO SCH (08:51)
[2016-11-13] MEDS: INSULIN NPH 100 UNIT/ML SUBCUT SCH (08:52)
[2016-11-13] MEDS: guaiFENesin/DM ER 600-30 MG TABLET PO SCH ×2 (08:52→20:27)
[2016-11-13] MEDS: ALLOPURINOL 300 MG TABLET PO SCH (08:52)
[2016-11-13] MEDS: INSULIN REGULAR 100 UNIT/ML SUBCUT SCH ×4 (08:52→20:27)
[2016-11-13] MEDS: ESTRADIOL 1 MG TABLET PO SCH (08:52)
[2016-11-13] MEDS: POTASSIUM CHLORIDE 20 MEQ TABLET PO SCH (08:52)
[2016-11-13] MEDS: CITALOPRAM 40 MG TABLET PO SCH (08:52)
[2016-11-13] MEDS: FLUTICASONE/SALMETEROL 250-50 DISKUS 14 DOSE INH SCH ×2 (08:53→20:28)
[2016-11-13] MEDS: PANTOPRAZOLE 40 MG TABLET PO SCH (08:53)
[2016-11-13] MEDS: DESITIN 4OZ/NYSTATIN 15 GRAM MIXTURE PASTE TOP SCH ×2 (08:58→20:28)
[2016-11-13] MEDS: CARISOPRODOL 350 MG TABLET PO SCH ×3 (08:58→20:27)
[2016-11-13] MEDS: MIRABEGRON 25 MG PO SCH (08:58)
--- NOTE | 2016-11-13 09:48 | Hospitalist Progress Note ---
Assessment and Plan (1) Pneumonia Status: Acute Assessment and plan: Continue duo nebs, continue clindamycin and Levaquin. Dr. Frank will see today. Dr. Frank believes the penicillium species was an upper airway contaminant in the bronchial cultures from October 26, 2016 Current Visit: Yes (2) COPD exacerbation Status: Resolved Assessment and plan: due to exposures of chemicals and dust, Continue duo nebs and steroids. Current Visit: No (3) Diabetes mellitus Status: Chronic Assessment and plan: BS still high will change to 70/30 35 units twice a day Current Visit: No Qualifiers: Diabetes mellitus complication status: with hyperglycemia (4) GERD (gastroesophageal reflux disease) Status: Chronic Assessment and plan: Continue Protonix daily Current Visit: No (5) Weak Status: Acute Assessment and plan: cont to encourage ambulation with PT Current Visit: Yes Hospitalist: Subjective Interval history: Patient is morbidly obese. She does not make much effort to get up and move around. She would like to see Dr. Frank today. She was recently discharged from the hospital and back in 5 days. She is worried about going home too early. Exam - Constitutional Vitals: Period Temp Pulse Resp BP Sys/Melendez Pulse Ox Last 24 Hr 97.0 F-98.6 F 61-98 16-20 126-161/71-86 90-100 Exam: Heart Rate-[RRR] Lungs-[diminished but more clear today GI-[+bs soft, NT, obese ] Neuro [Motor 5/5, alert and oriented times 3] psych [normal mood and flat affect] General [no acute distress] Results - Labs CBC & BMP: 11/12/16 05:43 11/12/16 05:43 Lab Results: I have reviewed the past 24 hour labs Labs: Patient growing penicillium species in her fungal culture from October 26, 2016, blood cultures 2 negative no growth
--- NOTE | 2016-11-13 10:27 | Pulmonology Consult Note ---
Assessment and Plan (1) Debility, unspecified Status: Resolved Assessment and plan: She has been in and out of the hospital so much it is hard for her to get back active again. Needs physical therapy. Current Visit: No (2) Moderate persistent asthma with exacerbation Status: Acute Assessment and plan: Not actively wheezing. Agree with Advair plus bronchodilators as needed. Current Visit: No (3) Esophageal stricture Status: Resolved Assessment and plan: She has had esophageal stricture dilated. I felt like she was having problems with recurrent microaspiration as the cause for her recurrent lower lobe pneumonias. She needs long-term weight loss, antireflux measures. Current Visit: No (4) GERD (gastroesophageal reflux disease) Status: Chronic Assessment and plan: Continue with PPI. She is on Protonix. Also recommend stopping Tessalon, as this may aggravate aspiration. Current Visit: No (5) Weak Status: Acute Assessment and plan: Again needs additional physical therapy. Current Visit: Yes History of Present Illness Chief complaint: Cough congestion weakness History of present illness: Ms. Foster is a 71 year old female who is well known to me. She has had recurrent episodes of basilar pneumonia that I feel is due to microaspiration and reflux. She has never been a smoker. She does have severe persistent asthma. She came in this time after falling on the floor. She had some vomiting and low-grade fever initially. There is a questionable infiltrate at the right base but it looks pretty much the same as it did last month. Home Medications Medication Instructions Recorded Confirmed Type ALPRAZolam [Xanax] 0.5 mg PO TID PRN 11/29/14 11/09/16 History Allopurinol [Zyloprim] 300 mg PO DAILY 11/29/14 11/09/16 History Carbidopa/Levodopa Cr 25-100 1 tablet PO BEDTIME 04/15/15 11/09/16 History [Sinemet Cr 25-100] Citalopram [CeleXA] 40 mg PO DAILY 04/15/15 11/09/16 History Ondansetron Tab [Zofran Tab] 4 mg PO Q4H PRN 04/15/15 11/09/16 History Cyanocobalamin (Vitamin B-12) 1,000 mcg IM Q30D 07/19/16 11/09/16 History [Vitamin B-12] Polyethylene Glycol Powder 17 gm PO DAILY 10/02/16 11/09/16 History [Miralax] Carisoprodol 350 mg PO TID 10/24/16 11/09/16 History Estradiol [Estrace Tab] 0.5 mg PO DAILY 10/24/16 11/09/16 History Hydrocodone/Acetaminophen 1 tablet PO Q6HR PRN 10/24/16 11/09/16 History [Hydrocodon-Acetaminophn 10-325] Mirabegron [Myrbetriq] 25 mg PO DAILY 10/24/16 11/09/16 History Albuterol/Ipratropium Neb [Duoneb] 3 ml RESP TX RT Q4H #90 vial 10/31/16 Rx Albuterol/Ipratropium Neb [Duoneb] 3 ml RESP TX RT Q4H PRN 10/31/16 11/09/16 Rx Benzonatate [Tessalon] 100 mg PO BID PRN #100 capsule 10/31/16 11/09/16 Rx Docusate Sodium Cap [Colace Cap] 100 mg PO BID PRN capsule 10/31/16 11/09/16 Rx Fluconazole Tab [Diflucan Tab] 100 mg PO DAILY #7 tablet 10/31/16 11/09/16 Rx Fluticasone/Salmeterol 250-50 1 puff INH BID 10/31/16 11/09/16 Rx [Advair 250-50] Insulin NPH [HumuLIN N] 25 unit SUBCUT BIDAC #1 syringe 10/31/16 11/09/16 Rx Pantoprazole Tab [Protonix Tab] 40 mg PO DAILY #30 tablet 10/31/16 11/09/16 Rx guaiFENesin/DM ER 600-30 [Mucinex 1 tablet PO BID tablet 10/31/16 11/09/16 Rx Dm 600-30 MG] Allergies Allergy/AdvReac Type Severity Reaction Status Date / Time Penicillins Allergy RASH Verified 07/17/16 21:13 phenobarbital Allergy RASH Verified 07/17/16 21:13 12 point system: reviewed and no additional remarkable complaints except as stated - Constitutional Constitutional: Present: fever(s) - Cardiovascular Cardiovascular: Present: dyspnea, dyspnea on exertion - Respiratory Respiratory: Present: cough, dyspnea, dyspnea on exertion - Gastrointestinal Gastrointestinal: Present: dyspepsia, vomiting - Musculoskeletal Musculoskeletal: Present: back pain, myalgias Exam (Pulmonay) H&P - Constitutional Vitals: Period Temp Pulse Resp BP Sys/Melendez Pulse Ox Last 24 Hr 97.0 F-98.6 F 61-98 16-20 126-161/71-86 90-100 Exam: Patient is afebrile alert oriented vital signs normal. Pupils react to light. Throat is clear. Neck supple no bruits. Chest reveals some expiratory rhonchi and no rales. Heart normal rate and rhythm no murmurs. Abdomen soft nontender no masses. Extremities no clubbing cyanosis or edema. Calves nontender. Medical,Surgical,& Family Hx - Medical History Cardio: History of: Hypertension Psychological: History of: Anxiety Disorders No history of: Behavior Problems, Bipolar Disorder, Depression, Psychiatric/ Substance Abuse Tx, Schizophrenia, Violent Behavior, Psychiatric Problems Neurology: No history of: Seizures HEENT: History of: Ear Problem (hard of hearing), Eye Problem (cataract surgery) No history of: Dental Problems Endocrine: History of: Diabetes Mellitus (NIDDM) No history of: Adrenal Disease, Diabetes Mellitus (IDDM), Thyroid Disorder, Endocrine Cancer, Endocrine Problems Rheumatology: History of;: Gout Respiratory: History of: Asthma, Bronchitis, COPD, Obstructive Sleep Apnea, Pneumonia Genitourinary: History of: Bladder Problem (incontient episodes), Recurring Urinary Tract Infections Gastrointestinal: History of: GERD, Hemorrhoids No history of: Gastrointestinal Bleed, Liver Problems, GI Problems Musculoskeletal: History of: Back/Neck Problems (chronic back pain), Musculoskeletal Problems (arthritis) No history of: Amputation Hematology: No history of: Anemia, Blood Transfusion Reaction, Bleeding Problems, Clotting Problems, Sickle Cell Disease, Hematologic Cancer, Blood Disorders Other: No history of: Anesthesia Reactions, Eczema, HIV - Surgical History Cardiac Surgeries: Patient Denies: Femoral-Popliteal Bypass Graft, Cardiac Catheterization, Cardiac Surgery, Carotid Endarterectomy, Internal Defibrillator, Vascular Access Devices Thoracic Surgeries: Patient denies;: Kidney (Renal Surgery), Lithotripsy, Nephrectomy, Organ Transplant, Lobectomy Neurologic Surgeries: Patient denies: Neurologic Surgery HEENT Surgeries: Surgical HX of: Eye Surgery (retinal surgery) Patient denies: Carotid Endarterectomy, Thyroid Surgery, Tonsilectomy & Adenoidectomy Abdominal Surgeries: Surgical HX of: Abdominal Surgery, Appendectomy, Cholecystectomy, Colonoscopy, EGD Patient denies: Gastric Bypass Surgery, Hernia Repair, Splenectomy Reproductive Surgeries: Surgical HX of;: Hysterectomy Patient denies;: Cystoscopy, Genitourinary Surgery Orthopedic Surgeries: Surgical HX of;: Orthopedic Surgery (rotator cuff, carpal tunnel release), Spinal Surgery (lumbar disc surgery) Patient denies;: Implanted Devices, Total Hip Replacement, Total Knee Replacement - Family History Family History: Reports;: Family Cancer (sister,brother), Family Diabetes ( daughter), Family Heart Disease (mother), Family Stroke (son) Denies;: Family Anesthesia Reaction, Family Hypertension, Family Psychiatric Problems - Social History Smoking Status: Unknown if ever smoked Frequency of Alcohol Use: Unknown Type of Drug Use: Unknown Results - Labs CBC & BMP: 11/12/16 05:43 11/12/16 05:43 Lab Results: I have reviewed the past 24 hour labs - Diagnostic Findings Procedure: Chest x-ray: image reviewed by me (Hazy at the right base but unchanged from film of mid October.)
[2016-11-13] MEDS: LEVOFLOXACIN INJ 750 MG in PREMIX 1 EACH IV SCH (16:45)
[2016-11-13] MEDS: INSULIN NPH/REGULAR 70/30 100 UNIT/ML SUBCUT SCH (16:48)
[2016-11-13] MEDS: ENOXAPARIN 40 MG/0.4 ML SYRINGE SUBCUT SCH (18:14)
[2016-11-13] MEDS: CARBIDOPA/LEVODOPA CR 25-100 MG TABLET PO SCH (20:28)
[2016-11-13] MEDS: ALPRAZolam 0.5 MG TABLET PO PRN (20:28)
[2016-11-14] MEDS: ALBUTEROL/IPRATROPIUM 3 ML NEB RESP TX SCH ×3 (03:00→11:35)
[2016-11-14] MEDS: methylPREDNISolone SOD SUC 40 MG/1 ML VIAL IV SCH (06:03)
[2016-11-14] MEDS: CLINDAMYCIN INJ 600 MG in PREMIX 1 EACH IV SCH ×2 (06:03→14:29)
[2016-11-14] MEDS: INSULIN REGULAR 100 UNIT/ML SUBCUT SCH ×3 (08:04→16:28)
[2016-11-14] MEDS: MIRABEGRON 25 MG PO SCH (08:20)
[2016-11-14] MEDS: INSULIN NPH/REGULAR 70/30 100 UNIT/ML SUBCUT SCH ×2 (08:20→16:28)
[2016-11-14] MEDS: ALLOPURINOL 300 MG TABLET PO SCH (08:21)
[2016-11-14] MEDS: POTASSIUM CHLORIDE 20 MEQ TABLET PO SCH (08:21)
[2016-11-14] MEDS: ESTRADIOL 1 MG TABLET PO SCH (08:21)
[2016-11-14] MEDS: PANTOPRAZOLE 40 MG TABLET PO SCH (08:21)
[2016-11-14] MEDS: guaiFENesin/DM ER 600-30 MG TABLET PO SCH (08:21)
[2016-11-14] MEDS: CITALOPRAM 40 MG TABLET PO SCH (08:21)
[2016-11-14] MEDS: DESITIN 4OZ/NYSTATIN 15 GRAM MIXTURE PASTE TOP SCH (08:22)
[2016-11-14] MEDS: POLYETHYLENE GLYCOL POWDER 17 GM PACK PO SCH (08:22)
[2016-11-14] MEDS: FLUTICASONE/SALMETEROL 250-50 DISKUS 14 DOSE INH SCH (08:27)
--- NOTE | 2016-11-14 08:46 | Discharge Summary ---
<Forest Yi - Last Filed: 11/14/16 08:25> Hospital Course - Hospital Course Hospital Course: Ms. Foster is a 71-year-old female who presented to the [facility] ED on 2016 with complaints of generalized weakness and associated nausea and vomiting that morning. She was admitted to the hospital medicine service with sepsis, pneumonia likely secondary to recurrent aspiration, generalized weakness, and diabetes mellitus. Blood cultures were obtained and the patient was placed on empiric IV antibiotics (clindamycin and Levaquin), O2, nebulizer therapy and corticosteroids. Blood cultures grew no bacteria 3 days. Urine culture grew no bacteria at 48 hours. Patient continued to improve and remained afebrile throughout the duration of her hospitalization. Orthopedics was consulted for patient's weakness noting that she had fallen and complained of some lower extremity weakness concerning for fracture. Orthopedics however found no evidence of fracture and felt that the patient could improve with outpatient physical therapy and occupational therapy alone and follow-up with orthopedics as necessary. She was weaned off oxygen and responded well, satting 96% on room air. At this time the patient has reached maximum benefit from hospitalization and is stable for discharge. Of note, the patient is morbidly obese and need to lose weight and be more active. Dr. Frank was consulted and does not feel she has pneumonia or copd. He feels she has asthma which has been exacerbated due to problems with aspiration. We will recommend keeping the head of her bed elevated at 30 and no eating or drinking 4 hours prior to going to bed. Patient has requested home health with home PT. She will be scheduled to follow-up with Dr. Martin and Dr. Frank. She will continue taking clindamycin for approximately 5 more days and we will place her on a steroid taper. Discharge Plan - Discharge Data Disposition: Home Health Service - Discharge Medications New Insulin NPH/Regular 70/30 [HumuLIN 70/30] 35 unit SUBCUT BIDAC #100 ml predniSONE TAB [PredniSONE] 20 mg PO DAILY #30 tablet Clindamycin HCl [Clindamycin Cap] 300 mg PO TID #15 capsule Magnesium Oxide [Magox 400] 400 mg PO BID #60 tablet Continue Allopurinol [Zyloprim] 300 mg PO DAILY ALPRAZolam [Xanax] 0.5 mg PO TID PRN PRN Reason: Anxiety Citalopram [CeleXA] 40 mg PO DAILY Carbidopa/Levodopa Cr 25-100 [Sinemet Cr 25-100] 1 tablet PO BEDTIME Hydrocodone/Acetaminophen [Hydrocodon-Acetaminophn 10-325] 1 tablet PO Q6HR PRN PRN Reason: Pain Mirabegron [Myrbetriq] 25 mg PO DAILY Estradiol [Estrace Tab] 0.5 mg PO DAILY Carisoprodol 350 mg PO TID Docusate Sodium Cap [Colace Cap] 100 mg PO BID PRN capsule PRN Reason: Constipation Fluticasone/Salmeterol 250-50 [Advair 250-50] 1 puff INH BID Pantoprazole Tab [Protonix Tab] 40 mg PO DAILY #30 tablet guaiFENesin/DM ER 600-30 [Mucinex Dm 600-30 MG] 1 tablet PO BID tablet Cyanocobalamin (Vitamin B-12) [Vitamin B-12] 1,000 mcg IM Q30D Polyethylene Glycol Powder [Miralax] 17 gm PO DAILY Albuterol/Ipratropium Neb [Duoneb] 3 ml RESP TX RT Q4H PRN PRN Reason: Shortness Of Breath/Wheezing Changed Albuterol/Ipratropium Neb [Duoneb] 3 ml RESP TX TID #90 vial Discontinued Ondansetron Tab [Zofran Tab] 4 mg PO Q4H PRN PRN Reason: Nausea Benzonatate [Tessalon] 100 mg PO BID PRN #100 capsule PRN Reason: Cough Fluconazole Tab [Diflucan Tab] 100 mg PO DAILY #7 tablet Insulin NPH [HumuLIN N] 25 unit SUBCUT BIDAC #1 syringe - Follow Up or Referral Follow Up: Claudy Martin MD [Physician] - 2 Weeks Xavier Frank MD [Physician] - 2 Weeks - Forms/Instructions Instructions: Asthma (DC), Urinary Tract Infection in Women (GEN), Weakness ( GEN) Exam - Constitutional Vitals: Period Temp Pulse Resp BP Sys/Melendez Pulse Ox Last 24 Hr 96.8 F-98.1 F 68-93 12-20 123-155/58-85 92-99 Discharge Results Procedures and tests throughout hospitalization: Pending Orders 11/09/16 16:04 Blood Culture Stat Labs on day of discharge: Labs from last 24 hours 11/13/16 11/13/16 11/13/16 19:03 16:01 11:09 POC Glucose 173 H 194 H 238 H Preliminary micro results at discharge 11/09/16 16:04 Blood Culture - Preliminary Blood No growth at 3 days 11/09/16 15:48 Blood Culture - Preliminary Blood No growth at 3 days DS: Provider Date of admission: 11/09/16 16:58 Primary care physician: . No PCP Attending physician on admission: Jatin Hernandez MD Consults: 11/11/16 15:52 Consult to Occupational Therapy [CONS] Routine Reason for Occupational Therapy: Evaluate and Treat Consult to Physical Therapy [CONS] Routine Reason for Physical Therapy: Evaluate and Treat 11/12/16 09:29 Consult to Physician [CONS] Routine Comment: left hip pain and weakness Consulting Provider: Harlan Gupta Person Notified: Malinda Date Notified: 11/12/16 Time Notified: 09:38 11/13/16 08:57 Consult to Physician [CONS] Routine Comment: pneumonia, bounce back Consulting Provider: Xavier Frank When should Consulting Provider be notified: Now Person Notified: Dr. Frank Date Notified: 11/13/16 Time Notified: 09:54 11/14/16 09:24 Consult to Case Mgmt/Social Srvs [CONS] Routine Reason for Case Mgmt/Social Srvs: Home Health Consult Comment: nursecalos, PT Discharging clinician: Forest TURNER Expected date of discharge: 11/14/16 <Ananya Bianchi - Last Filed: 11/14/16 10:49> Hospital Course - Time spent with patient Time with patient DS: Greater than 30 minutes (45 min) Diagnosis - Discharge Diagnosis (1) Pneumonia Status: Acute (2) COPD exacerbation Status: Resolved (3) Diabetes mellitus Status: Chronic (4) GERD (gastroesophageal reflux disease) Status: Chronic (5) Weak Status: Acute Discharge Plan - Discharge Data Condition at Discharge: Stable Discharge Diet: diabetic diet Activity: resume usual activities as tolerated, wear oxygen at night Hygiene: no restrictions Weight Bearing at Discharge: full weight bearing - Forms/Instructions Additional Discharge Instructions: no more sheri traore. Changed insulin to 70/30. As you taper off steroids may need to adjust your insulin dose down by 3 units every 3 days with a goal to keep her BS less than 180. Avoid eating at least 4 hours prior to going to bed and keep head of bed elevated at 30 degrees to avoid silent aspiration. Exam - Constitutional General appearance: no acute distress, morbidly obese - Respiratory Respiratory exam: Present: clear to auscultation bilaterally. Absent: rhonchi, wheezes - Cardiovascular Cardiovascular exam: Present: regular rate and rhythm. Absent: systolic murmur - GI/Abdominal GI/Abdominal exam: Present: normal bowel sounds, soft. Absent: tenderness - Extremities Exam Extremities exam: Present: normal inspection, normal capillary refill - Neurological Exam Neurological exam: Present: alert, oriented X3
--- NOTE | 2016-11-14 09:56 | Pulmonology Progress Note ---
Pulmonary - PN: Subj Interval history: This 71-year-old white female has had recurrent episodes of lower lobe pneumonia felt to be related to aspiration. She had her esophagus dilated last time she was here. Back in now with some bronchitis. I do not see a zelalem pneumonia. I have gone over all of the recommendations for antireflux therapy. She says she is going to try to lose weight which I think would be big. I can see her on a as needed basis on follow-up Exam (Progress Note) - Constitutional Vitals: Period Temp Pulse Resp BP Sys/Melendez Pulse Ox Last 24 Hr 96.8 F-98.1 F 68-93 12-20 123-155/58-85 92-99 Exam: Patient is alert oriented vital signs normal. Pupils react to light. Throat is clear. Neck supple no bruits. Chest reveals some minimal basilar rhonchi bilaterally. Heart normal rate and rhythm no murmurs. Abdomen soft nontender no masses. Extremities no clubbing cyanosis or edema. Calves nontender. Results - Labs CBC & BMP: 11/12/16 05:43 11/12/16 05:43 Lab Results: I have reviewed the past 24 hour labs Assessment and Plan (1) Debility, unspecified Status: Resolved Assessment and plan: She has been in and out of the hospital so much it is hard for her to get back active again. Needs physical therapy. 11/14/2016 needs increased activity. Current Visit: No (2) Moderate persistent asthma with exacerbation Status: Acute Assessment and plan: Not actively wheezing. Agree with Advair plus bronchodilators as needed. 11/14/2016 continue with Advair plus as needed bronchodilators. Current Visit: No (3) Esophageal stricture Status: Resolved Assessment and plan: She has had esophageal stricture dilated. I felt like she was having problems with recurrent microaspiration as the cause for her recurrent lower lobe pneumonias. She needs long-term weight loss, antireflux measures. 11/14/2016 previously dilated. Needs to continue antireflux measures. Current Visit: No (4) GERD (gastroesophageal reflux disease) Status: Chronic Assessment and plan: Continue with PPI. She is on Protonix. Also recommend stopping Tessalon, as this may aggravate aspiration. Current Visit: No (5) Weak Status: Acute Assessment and plan: Again needs additional physical therapy. Current Visit: Yes
[2016-11-14] MEDS: CARISOPRODOL 350 MG TABLET PO SCH ×2 (12:56→14:29)
[2016-11-14] MEDS: LEVOFLOXACIN INJ 750 MG in PREMIX 1 EACH IV SCH (14:29)
[2016-11-14 16:06] VITALS: BP 147/87
--- NOTE | 2016-11-23 13:16 | Physician Query Form ---
CLICK EDIT DOCUMENT TO SELECT QUERY ANSWER --> OK --> SIGN Adia Richard RN, CCDS Certified Clinical Senior Network Systems Engineer W) [phone] (f) [phone] [email or web address] PROVIDERS: Make your selection(s) from the choices in EACH section by typing an "x" and enter comments in the comment section. Please use your independent medical judgment in providing your response. This request does not imply that any particular answer is desired or expected. CLINICAL INDICATORS: (Providers should not edit this section) "This 71-year-old white female has had recurrent episodes of lower lobe pneumonia felt to be related to aspiration. She had her esophagus dilated last time she was here. Back in now with some bronchitis. I do not see a zelalem pneumonia. I have gone over all of the recommendations for antireflux therapy. " Based on the above, could you clarify the appropriate diagnosis, if significant , that supports the above abnormalities and additional evaluation, monitoring, and/or treatment rendered: ( ) Acute bronchitis (x ) Acute on chronic bronchitis ( ) Chronic bronchitis ( ) Aspiration Bronchitis ( ) Other, please specify: ( ) Clinically unable to determine COMMENTS: PLEASE ALSO DOCUMENT RESPONSE IN PROGRESS NOTES AND/OR DISCHARGE SUMMARY Use of terms such as suspected, likely, or probable (associated with a specific diagnosis that is being evaluated, monitored, or treated as if it exists) are acceptable and can be restated in the discharge summary if not ruled out. MTDD
--- NOTE | 2016-11-26 09:33 | Physician Query Form ---
CLICK EDIT DOCUMENT TO SELECT QUERY ANSWER --> OK --> SIGN Nivia Batista RN, CCDS Certified Clinical Vice President Client Services W) [phone] (f) [phone] [email or web address] PROVIDERS: Make your selection(s) from the choices in EACH section by typing an "x" and enter comments in the comment section. Please use your independent medical judgment in providing your response. This request does not imply that any particular answer is desired or expected. CLINICAL INDICATORS: (Providers should not edit this section) Discharge summary states "She was admitted to the hospital medicine service with sepsis, pneumonia likely secondary to recurrent aspiration"...."the patient was placed on empiric IV antibiotics (clindamycin and Levaquin), O2, nebulizer therapy and corticosteroids." and "Dr. Frank was consulted and does not feel she has pneumonia or copd. He feels she has asthma which has been exacerbated due to problems with aspiration." "We will recommend keeping the head of her bed elevated at 30 and no eating or drinking 4 hours prior to going to bed." Please clarify the following: ( ) The patient was treated for aspiration pneumonia ( x) The patient was NOT treated for aspiration pneumonia ( ) Other condition treated, please specify: ( ) Clinically unable to determine COMMENTS: PLEASE ALSO DOCUMENT RESPONSE IN PROGRESS NOTES AND/OR DISCHARGE SUMMARY Use of terms such as suspected, likely, or probable (associated with a specific diagnosis that is being evaluated, monitored, or treated as if it exists) are acceptable and can be restated in the discharge summary if not ruled out. MTDD
== END 2016-11-14 17:43 | disposition home health service (06) | DRG 872 ==
LOC: MERGE 14:33 → N.ED 14:33 → SUATTDRO 16:58 → N.EDINP 16:58 → N.5E 17:54
PROVIDERS: ADMIT Family Medicine; ATTEND Internal Medicine

== ENCOUNTER 2017-04-23 05:29 | Inpatient (IN) ==
[2017-04-23] MEDS ORDERED: ALBUTEROL 2.5 MG/3 ML NEB RESP TX SCH (06:30)
[2017-04-23] MEDS ORDERED: methylPREDNISolone SOD SUC 125 MG/2 ML VIAL IV STA (06:30)
[2017-04-23] MEDS ORDERED: SODIUM CHLORIDE 0.9% 2,850 ML IV ONE (06:31)
[2017-04-23] MEDS ORDERED: SODIUM CHLORIDE 0.9% 1,000 ML IV STA (06:31)
[2017-04-23 06:43] LABS: Basophils # 0.1 10*3/uL (0.0-0.2); Basophils % 0.8 % (0.0-0.8); Eosinophils # 0.1 10*3/uL (0.0-0.87); Eosinophils % 1.6 % (0.00-10.9); Hematocrit 40.8 VOL% (35.7-47.0); Hemoglobin 13.4 GM/DL (12.0-16.0); Immature Granulocytes % 0.7 %; Immature Granulocytes Absolute 0.05 #; Lymphocytes % 13.1 % (21.3-54.2); Mean Corpuscular HGB Conc 32.8 GM/DL (32-36); Mean Corpuscular Hemoglobin 27 PG (27-34); Mean Corpuscular Volume 82.1 FL (87-102); Mean Platelet Volume 10.3 FL (9.6-12.0); Monocytes # 0.8 10*3/uL (0.11-0.8); Neutrophils # 5.5 10*3/uL (1.4-7.4); Neutrophils % 72.8 % (38.7-73.9); Platelet Count 181 T/CUMM (130-400); Red Blood Count 4.97 MC/CUMM (3.8-5.5); Red Cell Distribution Width 16.3 % (9.3-17.3); White Blood Count 7.6 T/CUMM (4-12)
[2017-04-23] MEDS ORDERED: methylPREDNISolone SOD SUC 125 MG/2 ML VIAL ONE (06:43)
[2017-04-23 06:57] LABS: PT Patient Result 10.9 SECS; Partial Thromboplastin Time 29.6 SECS (0-40)
[2017-04-23 07:19] LABS: Alanine Aminotransferase 24 U/L (13-56); Albumin 3.5 G/DL (3.4-5.0); Alkaline Phosphatase 54 U/L (45-117); Aspartate Amino Transferase 23 U/L (0-37); Blood Urea Nitrogen 15 MG/DL (7-18); Calcium 8.4 MG/DL (8.5-10.1); Glucose 197 MG/DL (74-106); Osmolality,Calculated 275.1 MOS/KG (273-304); Potassium 3.7 MMOL/L (3.5-5.1); Sodium 135 MMOL/L (136-145); Total Protein 6.2 G/DL (6.4-8.3); Troponin I Only < 0.015 NG/ML (0.00-0.045)
[2017-04-23] MEDS ORDERED: LEVOFLOXACIN INJ 500 MG in PREMIX 1 EACH IV STA (07:35)
[2017-04-23] MEDS ORDERED: LEVOFLOXACIN INJ 100 ML IV ONE (07:43)
[2017-04-23] MEDS ORDERED: ALBUTEROL 2.5 MG/3 ML NEB RESP TX STA (08:10)
[2017-04-23 08:24] LABS: Apearance,Urine CLEAR (Clear); Bilirubin,Urine Negative (Negative); Blood, Urine Small mg/dL (Negative); Glucose,Urine (UA) 150 mg/dL (Negative); Ketones,Urine 5 mg/dL (Negative); Mucus,Urine Occasional /LPF (Occasional); Nitrite,Urine Negative (Negative); Protein,Urine Negative; RBC,Urine 1 /HPF (0-4); Squamous Epithelial Cell,Urine Occasional /HPF (0-10); Urine Color Yellow (Yellow); Urine Specific Gravity 1.015 (1.001-1.035); Urine Urobilinogen < 2.0 EU/DL (0.2-1.0); WBC,Urine <1 /HPF (0-6)
[2017-04-23] MEDS ORDERED: ETOMIDATE 20 MG/10 ML VIAL IV ONE (09:25)
[2017-04-23] MEDS ORDERED: PROPOFOL 1,000 MG/100 ML BOTTLE IV ONE (09:25)
[2017-04-23] MEDS ORDERED: VECURONIUM 10 MG VIAL IV ONE (09:25)
[2017-04-23] MEDS ORDERED: CLINDAMYCIN INJ 900 MG in PREMIX 1 EACH IV STA (09:32)
[2017-04-23] MEDS: PROPOFOL 1,000 MG/100 ML BOTTLE IV SCH (09:35)
[2017-04-23] MEDS ORDERED: ACETAMINOPHEN 650 MG SUPP RECTAL STA (09:59)
[2017-04-23] MEDS ORDERED: CLINDAMYCIN INJ 50 ML IV ONE (10:02)
[2017-04-23] MEDS ORDERED: ACETAMINOPHEN 650 MG SUPP RECTAL ONE (10:02)
[2017-04-23] MEDS ORDERED: fentaNYL 100 MCG/2 ML VIAL ONE (10:51)
[2017-04-23] MEDS: fentaNYL INJ 1,250 MCG in SODIUM CHLORIDE 0.9% 225 ML IV SCH (11:18)
[2017-04-23] MEDS ORDERED: DEXTROSE 50% 25 GM/50 ML VIAL IV PRN ×2 (11:48→12:31)
[2017-04-23] MEDS ORDERED: GLUCAGON 1 MG VIAL IM PRN ×2 (11:48→12:31)
[2017-04-23] MEDS ORDERED: methylPREDNISolone SOD SUC 40 MG/1 ML VIAL ONE (12:41)
[2017-04-23] MEDS ORDERED: ENOXAPARIN 40 MG/0.4 ML SYRINGE ONE (12:41)
[2017-04-23] MEDS: ENOXAPARIN 40 MG/0.4 ML SYRINGE SUBCUT SCH (12:45)
[2017-04-23] MEDS: methylPREDNISolone SOD SUC 40 MG/1 ML VIAL IV SCH ×2 (12:45→21:53)
[2017-04-23] MEDS: MIDAZOLAM 100 MG in SODIUM CHLORIDE 0.9% 80 ML IV SCH (12:50)
[2017-04-23] MEDS ORDERED: MIDAZOLAM 2 MG/2 ML VIAL ONE ×2 (12:51→14:45)
[2017-04-23] MEDS ORDERED: INSULIN REGULAR 100 UNIT/ML ONE (13:11)
[2017-04-23 13:14] LABS: ABG Base Excess -5.8 MMOL/L (-2.5-2.5); ABG HCO3 19.7 MMOL/L (20-26); ABG Oxygen Saturation 99.6 % (95-100); ABG PH 7.276 (7.35-7.45); ABG TCO2 19.2 MMOL/L (23-27); Allen Test Positive; Pt O2 Delivery Device Ventilator
[2017-04-23] MEDS: INSULIN REGULAR 100 UNIT/ML SUBCUT SCH ×2 (13:15→18:33)
[2017-04-23] MEDS: ALBUTEROL/IPRATROPIUM 3 ML NEB RESP TX SCH ×2 (13:32→20:08)
[2017-04-23] MEDS ORDERED: FUROSEMIDE 40 MG/4 ML VIAL ONE (14:47)
[2017-04-23] MEDS: SODIUM CHLORIDE 0.9% 1,000 ML IV SCH (14:53)
[2017-04-23] MEDS ORDERED: MIDAZOLAM 2 MG/2 ML VIAL IV STA (14:58)
[2017-04-23] MEDS ORDERED: INSULIN REGULAR 100 UNIT/ML SUBCUT SCH (18:00)
[2017-04-23] MEDS: CLINDAMYCIN INJ 600 MG in PREMIX 1 EACH IV SCH (18:33)
[2017-04-23] MEDS ORDERED: INSULIN GLARGINE 100 UNIT/ML SUBCUT SCH (21:00)
[2017-04-24] MEDS: ALBUTEROL/IPRATROPIUM 3 ML NEB RESP TX SCH ×4 (00:42→20:18)
[2017-04-24] MEDS: INSULIN REGULAR 100 UNIT/ML SUBCUT SCH ×4 (01:11→19:35)
[2017-04-24] MEDS: CLINDAMYCIN INJ 600 MG in PREMIX 1 EACH IV SCH ×3 (03:03→19:34)
[2017-04-24] MEDS: SODIUM CHLORIDE 0.9% 1,000 ML IV SCH ×3 (03:04→13:31)
[2017-04-24 03:55] LABS: ABG Base Excess 0.6 MMOL/L (-2.5-2.5); ABG PCO2 40.1 MM HG (35-48); ABG PH 7.407 (7.35-7.45); ABG TCO2 21.6 MMOL/L (23-27); Allen Test Positive; Pt O2 Delivery Device Ventilator
[2017-04-24] MEDS: methylPREDNISolone SOD SUC 40 MG/1 ML VIAL IV SCH ×3 (05:42→21:51)
[2017-04-24 05:43] LABS: Basophils % 0.1 % (0.0-0.8); Hematocrit 32.3 VOL% (35.7-47.0); Hemoglobin 10.6 GM/DL (12.0-16.0); Immature Granulocytes % 0.6 %; Immature Granulocytes Absolute 0.06 #; Lymphocytes # 0.6 10*3/uL (1.4-4.0); Mean Corpuscular HGB Conc 32.8 GM/DL (32-36); Mean Corpuscular Hemoglobin 27 PG (27-34); Mean Corpuscular Volume 81.6 FL (87-102); Mean Platelet Volume 10.5 FL (9.6-12.0); Monocytes # 0.5 10*3/uL (0.11-0.8); Monocytes % 4.6 % (1.7-12.7); Neutrophils # 8.7 10*3/uL (1.4-7.4); Neutrophils % 88.7 % (38.7-73.9); Platelet Count 170 T/CUMM (130-400); Red Blood Count 3.96 MC/CUMM (3.8-5.5); Red Cell Distribution Width 16.1 % (9.3-17.3); White Blood Count 9.8 T/CUMM (4-12)
[2017-04-24 06:15] LABS: Calcium 7.9 MG/DL (8.5-10.1); Osmolality,Calculated 288.5 MOS/KG (273-304); Potassium 3.4 MMOL/L (3.5-5.1)
[2017-04-24] MEDS ORDERED: LIDOCAINE 1% 20 ML VIAL MISC INJ ONE (07:00)
[2017-04-24] MEDS ORDERED: LIDOCAINE 2% 20 ML VIAL RESP TX ONE (07:00)
[2017-04-24] MEDS ORDERED: POTASSIUM CHLORIDE RIDER 10 MEQ in PREMIX 1 EACH IV PRN (07:01)
[2017-04-24] MEDS ORDERED: MIDAZOLAM 2 MG/2 ML VIAL ONE (07:10)
[2017-04-24] MEDS: fentaNYL INJ 1,250 MCG in SODIUM CHLORIDE 0.9% 225 ML IV SCH ×2 (07:59→19:30)
[2017-04-24] MEDS ORDERED: POTASSIUM CHLORIDE INJ 40 MEQ in SODIUM CHLORIDE 0.9% 500 ML IV SCH (08:00)
[2017-04-24] MEDS: LEVOFLOXACIN INJ 500 MG in PREMIX 1 EACH IV SCH (11:22)
[2017-04-24] MEDS: PANTOPRAZOLE 40 MG VIAL IV SCH (11:23)
[2017-04-24] MEDS: ENOXAPARIN 40 MG/0.4 ML SYRINGE SUBCUT SCH (12:00)
[2017-04-24] MEDS: PROPOFOL 1,000 MG/100 ML BOTTLE IV SCH (17:42)
[2017-04-24] MEDS: MIDAZOLAM 100 MG in SODIUM CHLORIDE 0.9% 80 ML IV SCH (19:36)
[2017-04-24] MEDS: INSULIN GLARGINE 100 UNIT/ML SUBCUT SCH (21:51)
[2017-04-25] MEDS: INSULIN REGULAR 100 UNIT/ML SUBCUT SCH ×4 (00:39→18:31)
[2017-04-25] MEDS: ALBUTEROL/IPRATROPIUM 3 ML NEB RESP TX SCH ×4 (01:41→19:50)
[2017-04-25] MEDS: CLINDAMYCIN INJ 600 MG in PREMIX 1 EACH IV SCH ×3 (02:15→18:30)
[2017-04-25 03:29] LABS: ABG Base Excess -0.4 MMOL/L (-2.5-2.5); ABG HCO3 24.1 MMOL/L (20-26); ABG Oxygen Saturation 97.5 % (95-100); ABG PCO2 43.3 MM HG (35-48); ABG PO2 95.1 MM HG (80-95); ABG TCO2 22.5 MMOL/L (23-27); Pt O2 Delivery Device Ventilator
[2017-04-25] MEDS: SODIUM CHLORIDE 0.9% 1,000 ML IV SCH ×2 (04:15→16:00)
[2017-04-25 05:42] LABS: Basophils % 0.1 % (0.0-0.8); Hematocrit 32.7 VOL% (35.7-47.0); Hemoglobin 10.6 GM/DL (12.0-16.0); Immature Granulocytes % 1.3 %; Immature Granulocytes Absolute 0.11 #; Lymphocytes # 0.9 10*3/uL (1.4-4.0); Lymphocytes % 10.8 % (21.3-54.2); Mean Corpuscular HGB Conc 32.4 GM/DL (32-36); Mean Corpuscular Hemoglobin 27 PG (27-34); Mean Corpuscular Volume 83.8 FL (87-102); Mean Platelet Volume 10.4 FL (9.6-12.0); Monocytes # 0.5 10*3/uL (0.11-0.8); Monocytes % 5.6 % (1.7-12.7); NRBC # 0.02 10*3/uL; Neutrophils # 6.9 10*3/uL (1.4-7.4); Neutrophils % 82.2 % (38.7-73.9); Platelet Count 183 T/CUMM (130-400); Red Cell Distribution Width 16.3 % (9.3-17.3); White Blood Count 8.4 T/CUMM (4-12)
[2017-04-25] MEDS: methylPREDNISolone SOD SUC 40 MG/1 ML VIAL IV SCH ×3 (05:43→22:33)
[2017-04-25 06:04] LABS: Alanine Aminotransferase 44 U/L (13-56); Albumin 2.6 G/DL (3.4-5.0); Alkaline Phosphatase 47 U/L (45-117); Aspartate Amino Transferase 42 U/L (0-37); Bilirubin,Total < 0.39 MG/DL (0.2-1.0); Blood Urea Nitrogen 24 MG/DL (7-18); Calcium 8.2 MG/DL (8.5-10.1); Glucose 245 MG/DL (74-106); Osmolality,Calculated 288.5 MOS/KG (273-304); Potassium 4.4 MMOL/L (3.5-5.1); Sodium 139 MMOL/L (136-145); Total Protein 4.9 G/DL (6.4-8.3)
[2017-04-25 06:16] LABS: Band Neutrophils 10 % (0-10); Lymphocytes 9 % (20-55); Segmented Neutrophils 76 % (50-85); Total Cells Counted 100
[2017-04-25 06:17] LABS: Atypical Lymphocytes Moderate; Hypochromasia 2+; Macrocytosis Slight; Platelet Estimate Adequate
[2017-04-25] MEDS: fentaNYL INJ 1,250 MCG in SODIUM CHLORIDE 0.9% 225 ML IV SCH (08:53)
[2017-04-25] MEDS: LEVOFLOXACIN INJ 500 MG in PREMIX 1 EACH IV SCH (09:30)
[2017-04-25] MEDS: PANTOPRAZOLE 40 MG VIAL IV SCH (09:30)
[2017-04-25] MEDS: ENOXAPARIN 40 MG/0.4 ML SYRINGE SUBCUT SCH (13:30)
[2017-04-25] MEDS ORDERED: cloNIDine 0.2 MG/24 HR PATCH TRANSDERM SCH (15:30)
[2017-04-25] MEDS: MIDAZOLAM 100 MG in SODIUM CHLORIDE 0.9% 80 ML IV SCH (18:01)
[2017-04-25] MEDS: INSULIN GLARGINE 100 UNIT/ML SUBCUT SCH (21:14)
[2017-04-25] MEDS: CHLORHEXIDINE 0.12% ORAL RINSE 60 ML BOTTLE SWISH/SPIT SCH (21:19)
[2017-04-26] MEDS: INSULIN REGULAR 100 UNIT/ML SUBCUT SCH ×5 (00:06→23:41)
[2017-04-26] MEDS: ALBUTEROL/IPRATROPIUM 3 ML NEB RESP TX SCH ×4 (01:16→18:14)
[2017-04-26] MEDS: fentaNYL INJ 1,250 MCG in SODIUM CHLORIDE 0.9% 225 ML IV SCH ×3 (02:10→16:18)
[2017-04-26] MEDS: CLINDAMYCIN INJ 600 MG in PREMIX 1 EACH IV SCH ×3 (02:10→18:04)
[2017-04-26] MEDS: SODIUM CHLORIDE 0.9% 1,000 ML IV SCH ×4 (03:03→15:39)
[2017-04-26 03:21] LABS: ABG Base Excess 1.6 MMOL/L (-2.5-2.5); ABG HCO3 25.6 MMOL/L (20-26); ABG Oxygen Saturation 95.5 % (95-100); ABG PCO2 37.7 MM HG (35-48); ABG PH 7.449 (7.35-7.45); ABG PO2 77.8 MM HG (80-95); ABG TCO2 26.7 MMOL/L (23-27); Pt O2 Delivery Device Ventilator
[2017-04-26 04:32] LABS: Basophils % 0.4 % (0.0-0.8); Hematocrit 34.8 VOL% (35.7-47.0); Hemoglobin 11.2 GM/DL (12.0-16.0); Immature Granulocytes % 2.6 %; Immature Granulocytes Absolute 0.23 #; Lymphocytes # 2.2 10*3/uL (1.4-4.0); Lymphocytes % 24.1 % (21.3-54.2); Mean Corpuscular HGB Conc 32.2 GM/DL (32-36); Mean Corpuscular Hemoglobin 27 PG (27-34); Mean Corpuscular Volume 82.5 FL (87-102); Mean Platelet Volume 10.4 FL (9.6-12.0); Monocytes # 0.3 10*3/uL (0.11-0.8); Monocytes % 3.7 % (1.7-12.7); Neutrophils # 6.2 10*3/uL (1.4-7.4); Neutrophils % 69.2 % (38.7-73.9); Platelet Count 206 T/CUMM (130-400); Red Blood Count 4.22 MC/CUMM (3.8-5.5); Red Cell Distribution Width 16.3 % (9.3-17.3); White Blood Count 8.9 T/CUMM (4-12)
[2017-04-26 05:09] LABS: Albumin 2.6 G/DL (3.4-5.0); Bilirubin,Total 0.4 MG/DL (0.2-1.0); Calcium 8.7 MG/DL (8.5-10.1); Magnesium 2.1 MG/DL (1.8-2.4); Osmolality,Calculated 288.5 MOS/KG (273-304); Potassium 4.7 MMOL/L (3.5-5.1); Total Protein 5.2 G/DL (6.4-8.3)
[2017-04-26 05:16] LABS: Lymphocytes 22 % (20-55); Metamyelocytes 2 %; Platelet Estimate Normal; Segmented Neutrophils 75 % (50-85); Total Cells Counted 100
[2017-04-26 05:17] LABS: Anisocytosis 1+; Hypochromasia 2+; Macrocytosis 1+
[2017-04-26] MEDS: methylPREDNISolone SOD SUC 40 MG/1 ML VIAL IV SCH ×3 (05:54→21:58)
[2017-04-26] MEDS: CHLORHEXIDINE 0.12% ORAL RINSE 60 ML BOTTLE SWISH/SPIT SCH ×2 (08:27→20:20)
[2017-04-26] MEDS: LEVOFLOXACIN INJ 500 MG in PREMIX 1 EACH IV SCH (08:27)
[2017-04-26] MEDS: PANTOPRAZOLE 40 MG VIAL IV SCH (08:28)
[2017-04-26] MEDS: FLUCONAZOLE INJ 100 MG in IV BAG 1 EACH IV SCH (08:28)
[2017-04-26] MEDS ORDERED: PROPOFOL 200 MG/20 ML VIAL IV ONE (10:52)
[2017-04-26] MEDS ORDERED: LIDOCAINE 2% 5 ML VIAL ONE (10:52)
[2017-04-26] MEDS ORDERED: LIDOCAINE 2%/EPI 20 ML VIAL ONE (11:26)
[2017-04-26] MEDS ORDERED: CHLORHEXIDINE 0.12% ORAL RINSE 60 ML BOTTLE SWISH/SPIT ONE (11:28)
[2017-04-26] MEDS: ENOXAPARIN 40 MG/0.4 ML SYRINGE SUBCUT SCH (13:07)
[2017-04-26] MEDS ORDERED: methylPREDNISolone SOD SUC 125 MG/2 ML VIAL ONE (13:39)
[2017-04-26] MEDS ORDERED: fentaNYL 100 MCG/2 ML VIAL ONE (13:39)
[2017-04-26] MEDS ORDERED: ROCURONIUM 100 MG/10 ML VIAL IV ONE (13:39)
[2017-04-26] MEDS ORDERED: MIDAZOLAM 2 MG/2 ML VIAL ONE (13:39)
[2017-04-26] MEDS: MIDAZOLAM 100 MG in SODIUM CHLORIDE 0.9% 80 ML IV SCH ×2 (13:56→22:01)
[2017-04-26] MEDS ORDERED: LABETALOL 20 MG/4 ML SYRINGE IV ONE (14:17)
[2017-04-26] MEDS ORDERED: LABETALOL 20 MG/4 ML SYRINGE IV PRN ×2 (14:19→15:42)
[2017-04-26] MEDS ORDERED: cloNIDine 0.3 MG/24 HR PATCH TRANSDERM SCH (14:30)
[2017-04-26] MEDS: hydrALAZINE 20 MG/1 ML VIAL IV PRN (16:06)
[2017-04-26] MEDS: INSULIN GLARGINE 100 UNIT/ML SUBCUT SCH (20:20)
[2017-04-27] MEDS: SODIUM CHLORIDE 0.9% 1,000 ML IV SCH (00:38)
[2017-04-27] MEDS: ALBUTEROL/IPRATROPIUM 3 ML NEB RESP TX SCH ×4 (00:57→19:04)
[2017-04-27] MEDS: fentaNYL INJ 1,250 MCG in SODIUM CHLORIDE 0.9% 225 ML IV SCH ×2 (01:48→10:42)
[2017-04-27] MEDS: CLINDAMYCIN INJ 600 MG in PREMIX 1 EACH IV SCH ×3 (02:33→18:26)
[2017-04-27 03:30] LABS: ABG Base Excess 2.1 MMOL/L (-2.5-2.5); ABG HCO3 26.1 MMOL/L (20-26); ABG Oxygen Saturation 95.9 % (95-100); ABG PCO2 38.3 MM HG (35-48); ABG PH 7.451 (7.35-7.45); ABG PO2 84.5 MM HG (80-95); ABG TCO2 27.3 MMOL/L (23-27)
[2017-04-27 05:50] LABS: Basophils % 0.5 % (0.0-0.8); Hematocrit 34.1 VOL% (35.7-47.0); Hemoglobin 11.2 GM/DL (12.0-16.0); Immature Granulocytes Absolute 0.43 #; Lymphocytes # 1.1 10*3/uL (1.4-4.0); Lymphocytes % 12.9 % (21.3-54.2); Mean Corpuscular HGB Conc 32.8 GM/DL (32-36); Mean Corpuscular Hemoglobin 27 PG (27-34); Mean Corpuscular Volume 81.6 FL (87-102); Mean Platelet Volume 10.7 FL (9.6-12.0); Monocytes # 0.4 10*3/uL (0.11-0.8); Monocytes % 4.5 % (1.7-12.7); Neutrophils # 6.6 10*3/uL (1.4-7.4); Neutrophils % 77.1 % (38.7-73.9); Platelet Count 203 T/CUMM (130-400); Red Blood Count 4.18 MC/CUMM (3.8-5.5); Red Cell Distribution Width 16.2 % (9.3-17.3); White Blood Count 8.6 T/CUMM (4-12)
[2017-04-27] MEDS: methylPREDNISolone SOD SUC 40 MG/1 ML VIAL IV SCH ×3 (06:11→21:27)
[2017-04-27] MEDS: INSULIN REGULAR 100 UNIT/ML SUBCUT SCH ×3 (06:12→18:26)
[2017-04-27 06:29] LABS: Albumin 2.5 G/DL (3.4-5.0); Bilirubin,Total 0.5 MG/DL (0.2-1.0); Potassium 4.5 MMOL/L (3.5-5.1); Total Protein 5.2 G/DL (6.4-8.3)
[2017-04-27] MEDS: LEVOFLOXACIN INJ 500 MG in PREMIX 1 EACH IV SCH (07:38)
[2017-04-27] MEDS: FLUCONAZOLE INJ 100 MG in IV BAG 1 EACH IV SCH (07:38)
[2017-04-27] MEDS: PANTOPRAZOLE 40 MG VIAL IV SCH (08:26)
[2017-04-27] MEDS: amLODIPine 10 MG TABLET PO SCH (08:26)
[2017-04-27] MEDS: FUROSEMIDE 40 MG/4 ML VIAL IV SCH (08:26)
[2017-04-27] MEDS: CHLORHEXIDINE 0.12% ORAL RINSE 60 ML BOTTLE SWISH/SPIT SCH ×2 (08:26→21:26)
[2017-04-27] MEDS: hydrALAZINE 20 MG/1 ML VIAL IV PRN (08:36)
[2017-04-27] MEDS: ENOXAPARIN 40 MG/0.4 ML SYRINGE SUBCUT SCH (12:37)
[2017-04-27] MEDS: MIDAZOLAM 100 MG in SODIUM CHLORIDE 0.9% 80 ML IV SCH (13:53)
[2017-04-27] MEDS: INSULIN GLARGINE 100 UNIT/ML SUBCUT SCH (21:26)
[2017-04-28] MEDS: ALBUTEROL/IPRATROPIUM 3 ML NEB RESP TX SCH ×4 (00:22→19:16)
[2017-04-28] MEDS: fentaNYL INJ 1,250 MCG in SODIUM CHLORIDE 0.9% 225 ML IV SCH ×3 (00:34→21:52)
[2017-04-28] MEDS: INSULIN REGULAR 100 UNIT/ML SUBCUT SCH ×5 (00:35→23:42)
[2017-04-28] MEDS: CLINDAMYCIN INJ 600 MG in PREMIX 1 EACH IV SCH ×3 (02:41→18:28)
[2017-04-28 03:52] LABS: ABG Base Excess 6.4 MMOL/L (-2.5-2.5); ABG HCO3 29.9 MMOL/L (20-26); ABG Oxygen Saturation 93.4 % (95-100); ABG PCO2 38.9 MM HG (35-48); ABG PH 7.504 (7.35-7.45); ABG PO2 66.9 MM HG (80-95); ABG TCO2 31.1 MMOL/L (23-27)
[2017-04-28 06:05] LABS: Basophils % 0.3 % (0.0-0.8); Hematocrit 35.5 VOL% (35.7-47.0); Immature Granulocytes % 5.4 %; Immature Granulocytes Absolute 0.51 #; Lymphocytes # 1.1 10*3/uL (1.4-4.0); Lymphocytes % 11.4 % (21.3-54.2); Mean Corpuscular HGB Conc 33.8 GM/DL (32-36); Mean Corpuscular Hemoglobin 27 PG (27-34); Mean Corpuscular Volume 79.8 FL (87-102); Mean Platelet Volume 10.2 FL (9.6-12.0); Monocytes # 0.6 10*3/uL (0.11-0.8); Monocytes % 6.1 % (1.7-12.7); Neutrophils # 7.3 10*3/uL (1.4-7.4); Neutrophils % 76.8 % (38.7-73.9); Platelet Count 230 T/CUMM (130-400); Red Blood Count 4.45 MC/CUMM (3.8-5.5); Red Cell Distribution Width 15.9 % (9.3-17.3); White Blood Count 9.5 T/CUMM (4-12)
[2017-04-28] MEDS: methylPREDNISolone SOD SUC 40 MG/1 ML VIAL IV SCH ×3 (06:07→21:35)
[2017-04-28] MEDS: MIDAZOLAM 100 MG in SODIUM CHLORIDE 0.9% 80 ML IV SCH ×2 (06:20→13:37)
[2017-04-28 06:42] LABS: Band Neutrophils 2 % (0-10); Giant Platelets Few; Hypochromasia 1+; Lymphocytes 12 % (20-55); Ovalocytes Slight; Platelet Estimate Adequate; Segmented Neutrophils 80 % (50-85); Total Cells Counted 100
[2017-04-28 06:43] LABS: Alanine Aminotransferase 34 U/L (13-56); Albumin 2.5 G/DL (3.4-5.0); Alkaline Phosphatase 42 U/L (45-117); Aspartate Amino Transferase 11 U/L (0-37); Bilirubin,Total < 0.39 MG/DL (0.2-1.0); Blood Urea Nitrogen 24 MG/DL (7-18); Calcium 8.2 MG/DL (8.5-10.1); Glucose 267 MG/DL (74-106); Osmolality,Calculated 285.8 MOS/KG (273-304); Potassium 4.2 MMOL/L (3.5-5.1); Sodium 137 MMOL/L (136-145); Total Protein 5.2 G/DL (6.4-8.3)
[2017-04-28] MEDS: PANTOPRAZOLE 40 MG VIAL IV SCH (08:35)
[2017-04-28] MEDS: FLUCONAZOLE INJ 100 MG in IV BAG 1 EACH IV SCH (08:36)
[2017-04-28] MEDS: amLODIPine 10 MG TABLET PO SCH (08:36)
[2017-04-28] MEDS: FUROSEMIDE 40 MG/4 ML VIAL IV SCH (08:36)
[2017-04-28] MEDS: LEVOFLOXACIN INJ 500 MG in PREMIX 1 EACH IV SCH (08:36)
[2017-04-28] MEDS: CHLORHEXIDINE 0.12% ORAL RINSE 60 ML BOTTLE SWISH/SPIT SCH ×2 (08:37→21:03)
[2017-04-28] MEDS: ENOXAPARIN 40 MG/0.4 ML SYRINGE SUBCUT SCH (12:27)
[2017-04-28] MEDS: INSULIN GLARGINE 100 UNIT/ML SUBCUT SCH (20:58)
[2017-04-29] MEDS: ALBUTEROL/IPRATROPIUM 3 ML NEB RESP TX SCH ×4 (01:30→20:03)
[2017-04-29] MEDS: CLINDAMYCIN INJ 600 MG in PREMIX 1 EACH IV SCH ×3 (02:06→17:13)
[2017-04-29 03:43] LABS: ABG Base Excess 9.3 MMOL/L (-2.5-2.5); ABG HCO3 34.2 MMOL/L (20-26); ABG Oxygen Saturation 96.4 % (95-100); ABG PCO2 47.3 MM HG (35-48); ABG PH 7.477 (7.35-7.45); ABG PO2 86.6 MM HG (80-95); ABG TCO2 35.7 MMOL/L (23-27)
[2017-04-29 05:00] LABS: Basophils # 0.1 10*3/uL (0.0-0.2); Basophils % 0.5 % (0.0-0.8); Hematocrit 37.1 VOL% (35.7-47.0); Hemoglobin 12.4 GM/DL (12.0-16.0); Immature Granulocytes % 5.7 %; Immature Granulocytes Absolute 0.74 #; Lymphocytes % 7.6 % (21.3-54.2); Mean Corpuscular HGB Conc 33.4 GM/DL (32-36); Mean Corpuscular Hemoglobin 27 PG (27-34); Mean Corpuscular Volume 80.3 FL (87-102); Mean Platelet Volume 9.7 FL (9.6-12.0); Monocytes # 0.9 10*3/uL (0.11-0.8); Monocytes % 7.1 % (1.7-12.7); Neutrophils # 10.3 10*3/uL (1.4-7.4); Neutrophils % 79.1 % (38.7-73.9); Platelet Count 265 T/CUMM (130-400); Red Blood Count 4.62 MC/CUMM (3.8-5.5); Red Cell Distribution Width 15.9 % (9.3-17.3)
[2017-04-29] MEDS: fentaNYL INJ 1,250 MCG in SODIUM CHLORIDE 0.9% 225 ML IV SCH ×2 (05:06→11:24)
[2017-04-29 05:34] LABS: Calcium 8.6 MG/DL (8.5-10.1); Magnesium 2.3 MG/DL (1.8-2.4); Osmolality,Calculated 285.8 MOS/KG (273-304)
[2017-04-29 05:52] LABS: Band Neutrophils 1 % (0-10); Lymphocytes 11 % (20-55); Magnesium 2.2 MG/DL (1.8-2.4); Segmented Neutrophils 82 % (50-85); Total Cells Counted 100
[2017-04-29 05:53] LABS: Giant Platelets Few; Hypochromasia 1+; Ovalocytes Slight; Platelet Estimate Adequate
[2017-04-29] MEDS: methylPREDNISolone SOD SUC 40 MG/1 ML VIAL IV SCH ×3 (06:13→21:50)
[2017-04-29] MEDS: INSULIN REGULAR 100 UNIT/ML SUBCUT SCH ×4 (06:14→23:44)
[2017-04-29 09:17] LABS: ABG Base Excess 10.6 MMOL/L (-2.5-2.5); ABG HCO3 34.2 MMOL/L (20-26); ABG Oxygen Saturation 94.5 % (95-100); ABG PCO2 48.1 MM HG (35-48); ABG PO2 73.3 MM HG (80-95); Allen Test Positive; Pt O2 Delivery Device Ventilator
[2017-04-29] MEDS: FUROSEMIDE 40 MG/4 ML VIAL IV SCH (09:41)
[2017-04-29] MEDS: PANTOPRAZOLE 40 MG VIAL IV SCH (09:54)
[2017-04-29] MEDS: LEVOFLOXACIN INJ 500 MG in PREMIX 1 EACH IV SCH (09:58)
[2017-04-29] MEDS: CHLORHEXIDINE 0.12% ORAL RINSE 60 ML BOTTLE SWISH/SPIT SCH ×2 (10:10→20:33)
[2017-04-29] MEDS: amLODIPine 10 MG TABLET PO SCH (10:15)
[2017-04-29 11:05] LABS: ABG Base Excess 10.7 MMOL/L (-2.5-2.5); ABG HCO3 34.3 MMOL/L (20-26); ABG Oxygen Saturation 92.4 % (95-100); ABG PCO2 49.8 MM HG (35-48); ABG PH 7.472 (7.35-7.45); ABG PO2 65.6 MM HG (80-95); ABG TCO2 31.2 MMOL/L (23-27)
[2017-04-29] MEDS: FLUCONAZOLE INJ 100 MG in IV BAG 1 EACH IV SCH (11:27)
[2017-04-29] MEDS: ENOXAPARIN 40 MG/0.4 ML SYRINGE SUBCUT SCH (12:32)
[2017-04-29] MEDS: MIDAZOLAM 100 MG in SODIUM CHLORIDE 0.9% 80 ML IV SCH (14:01)
[2017-04-29] MEDS: ACETAMINOPHEN 325 MG TABLET PO PRN (17:11)
[2017-04-29] MEDS: INSULIN GLARGINE 100 UNIT/ML SUBCUT SCH (20:27)
[2017-04-29] MEDS: diphenhydrAMINE CAP 50 MG CAPSULE PO PRN (21:54)
[2017-04-30] MEDS: ALBUTEROL/IPRATROPIUM 3 ML NEB RESP TX SCH ×4 (02:21→19:57)
[2017-04-30] MEDS: CLINDAMYCIN INJ 600 MG in PREMIX 1 EACH IV SCH ×3 (02:30→17:50)
[2017-04-30 05:00] LABS: Basophils # 0.1 10*3/uL (0.0-0.2); Basophils % 0.5 % (0.0-0.8); Hematocrit 41.1 VOL% (35.7-47.0); Hemoglobin 13.7 GM/DL (12.0-16.0); Immature Granulocytes % 5.7 %; Immature Granulocytes Absolute 0.83 #; Lymphocytes # 0.9 10*3/uL (1.4-4.0); Lymphocytes % 6.2 % (21.3-54.2); Mean Corpuscular HGB Conc 33.3 GM/DL (32-36); Mean Corpuscular Hemoglobin 27 PG (27-34); Mean Corpuscular Volume 79.5 FL (87-102); Mean Platelet Volume 9.8 FL (9.6-12.0); Monocytes # 0.9 10*3/uL (0.11-0.8); Monocytes % 6.1 % (1.7-12.7); Neutrophils # 11.9 10*3/uL (1.4-7.4); Neutrophils % 81.5 % (38.7-73.9); Platelet Count 321 T/CUMM (130-400); Red Blood Count 5.17 MC/CUMM (3.8-5.5); Red Cell Distribution Width 15.9 % (9.3-17.3); White Blood Count 14.6 T/CUMM (4-12)
[2017-04-30 05:29] LABS: Band Neutrophils 1 % (0-10); Lymphocytes 10 % (20-55); Segmented Neutrophils 85 % (50-85); Total Cells Counted 100
[2017-04-30 05:30] LABS: Giant Platelets Few; Hypochromasia 1+; Ovalocytes Slight; Platelet Estimate Adequate
[2017-04-30] MEDS: methylPREDNISolone SOD SUC 40 MG/1 ML VIAL IV SCH ×3 (05:30→17:36)
[2017-04-30 05:37] LABS: Calcium 8.5 MG/DL (8.5-10.1); Osmolality,Calculated 282.8 MOS/KG (273-304); Potassium 3.9 MMOL/L (3.5-5.1)
[2017-04-30] MEDS: INSULIN REGULAR 100 UNIT/ML SUBCUT SCH ×3 (05:43→23:46)
[2017-04-30] MEDS: NYSTATIN 500,000 UNIT/5 ML UDCUP SWISH/SWAL SCH ×5 (05:43→21:00)
[2017-04-30] MEDS: ACETAMINOPHEN 325 MG TABLET PO PRN ×2 (06:10→13:14)
[2017-04-30] MEDS: LEVOFLOXACIN INJ 500 MG in PREMIX 1 EACH IV SCH (07:33)
[2017-04-30] MEDS: PANTOPRAZOLE 40 MG VIAL IV SCH (08:46)
[2017-04-30] MEDS: FUROSEMIDE 40 MG/4 ML VIAL IV SCH (08:49)
[2017-04-30] MEDS: amLODIPine 10 MG TABLET PO SCH (08:54)
[2017-04-30] MEDS: CHLORHEXIDINE 0.12% ORAL RINSE 60 ML BOTTLE SWISH/SPIT SCH ×2 (08:55→21:00)
[2017-04-30] MEDS: FLUCONAZOLE INJ 100 MG in IV BAG 1 EACH IV SCH (09:02)
[2017-04-30] MEDS ORDERED: SKIN HEALING OINT (AQUAPHOR) 50 GM TUBE TOP PRN (10:36)
[2017-04-30] MEDS ORDERED: ZINC OXIDE PASTE 113 GM TUBE TOP PRN (10:37)
[2017-04-30] MEDS: ENOXAPARIN 40 MG/0.4 ML SYRINGE SUBCUT SCH (11:34)
[2017-04-30] MEDS: INSULIN GLARGINE 100 UNIT/ML SUBCUT SCH (21:00)
[2017-04-30] MEDS: CARBIDOPA/LEVODOPA CR 25-100 MG TABLET PO SCH (21:00)
[2017-04-30] MEDS: diphenhydrAMINE CAP 50 MG CAPSULE PO PRN (22:25)
[2017-05-01] MEDS: ALBUTEROL/IPRATROPIUM 3 ML NEB RESP TX SCH ×4 (00:51→20:03)
[2017-05-01] MEDS: INSULIN REGULAR 100 UNIT/ML SUBCUT SCH ×4 (01:57→18:21)
[2017-05-01] MEDS: CLINDAMYCIN INJ 600 MG in PREMIX 1 EACH IV SCH ×2 (01:59→08:25)
[2017-05-01] MEDS ORDERED: ALPRAZolam 0.25 MG TABLET PO ONE (02:00)
[2017-05-01] MEDS: methylPREDNISolone SOD SUC 40 MG/1 ML VIAL IV SCH (06:33)
[2017-05-01 06:51] LABS: Calcium 9.1 MG/DL (8.5-10.1); Potassium 3.7 MMOL/L (3.5-5.1)
[2017-05-01] MEDS: FLUCONAZOLE INJ 100 MG in IV BAG 1 EACH IV SCH (08:24)
[2017-05-01] MEDS: PANTOPRAZOLE 40 MG VIAL IV SCH (08:29)
[2017-05-01] MEDS: ENOXAPARIN 40 MG/0.4 ML SYRINGE SUBCUT SCH (08:30)
[2017-05-01] MEDS: amLODIPine 10 MG TABLET PO SCH (08:30)
[2017-05-01] MEDS: NYSTATIN 500,000 UNIT/5 ML UDCUP SWISH/SWAL SCH ×4 (08:30→20:50)
[2017-05-01] MEDS: CHLORHEXIDINE 0.12% ORAL RINSE 60 ML BOTTLE SWISH/SPIT SCH ×2 (08:32→20:48)
[2017-05-01] MEDS: FUROSEMIDE 40 MG/4 ML VIAL IV SCH (08:32)
[2017-05-01] MEDS: LEVOFLOXACIN 500 MG TABLET PO SCH (09:28)
[2017-05-01] MEDS: predniSONE 20 MG TABLET PO SCH (09:28)
[2017-05-01] MEDS: GLIMEPIRIDE 4 MG TABLET PO SCH (10:48)
[2017-05-01] MEDS: PANTOPRAZOLE 40 MG TABLET PO SCH (10:48)
[2017-05-01] MEDS: CARBIDOPA/LEVODOPA CR 25-100 MG TABLET PO SCH (20:46)
[2017-05-01] MEDS: diphenhydrAMINE CAP 50 MG CAPSULE PO PRN (20:46)
[2017-05-01] MEDS: INSULIN GLARGINE 100 UNIT/ML SUBCUT SCH (20:52)
[2017-05-02] MEDS: ALPRAZolam 0.5 MG TABLET PO PRN ×2 (00:21→21:06)
[2017-05-02] MEDS: INSULIN REGULAR 100 UNIT/ML SUBCUT SCH ×4 (01:09→18:08)
[2017-05-02] MEDS: ALBUTEROL/IPRATROPIUM 3 ML NEB RESP TX SCH ×4 (02:42→19:51)
[2017-05-02 05:47] LABS: Basophils # 0.1 10*3/uL (0.0-0.2); Basophils % 0.5 % (0.0-0.8); Eosinophils % 0.2 % (0.00-10.9); Hematocrit 45.4 VOL% (35.7-47.0); Hemoglobin 14.4 GM/DL (12.0-16.0); Immature Granulocytes % 4.6 %; Immature Granulocytes Absolute 0.72 #; Lymphocytes # 2.2 10*3/uL (1.4-4.0); Mean Corpuscular HGB Conc 31.7 GM/DL (32-36); Mean Corpuscular Hemoglobin 26 PG (27-34); Mean Corpuscular Volume 82.7 FL (87-102); Mean Platelet Volume 9.5 FL (9.6-12.0); Monocytes # 1.9 10*3/uL (0.11-0.8); Neutrophils # 10.7 10*3/uL (1.4-7.4); Neutrophils % 68.7 % (38.7-73.9); Platelet Count 335 T/CUMM (130-400); Red Blood Count 5.49 MC/CUMM (3.8-5.5); White Blood Count 15.6 T/CUMM (4-12)
[2017-05-02 06:15] LABS: Elliptocytes Few; Hypochromasia 1+; Lymphocytes 17 % (20-55); Platelet Estimate Adequate; Segmented Neutrophils 69 % (50-85); Total Cells Counted 100
[2017-05-02 06:16] LABS: Giant Platelets Few; Microcytosis Slight
[2017-05-02] MEDS: GLIMEPIRIDE 4 MG TABLET PO SCH (09:17)
[2017-05-02] MEDS: ENOXAPARIN 40 MG/0.4 ML SYRINGE SUBCUT SCH (09:18)
[2017-05-02] MEDS: CITALOPRAM 40 MG TABLET PO SCH (09:18)
[2017-05-02] MEDS: LEVOFLOXACIN 500 MG TABLET PO SCH (09:18)
[2017-05-02] MEDS: NYSTATIN 500,000 UNIT/5 ML UDCUP SWISH/SWAL SCH ×4 (09:18→21:05)
[2017-05-02] MEDS: predniSONE 20 MG TABLET PO SCH (09:19)
[2017-05-02] MEDS: amLODIPine 10 MG TABLET PO SCH (09:19)
[2017-05-02] MEDS: PANTOPRAZOLE 40 MG TABLET PO SCH (09:20)
[2017-05-02] MEDS: FUROSEMIDE 40 MG/4 ML VIAL IV SCH (09:20)
[2017-05-02] MEDS: ALLOPURINOL 300 MG TABLET PO SCH (09:20)
[2017-05-02] MEDS: CHLORHEXIDINE 0.12% ORAL RINSE 60 ML BOTTLE SWISH/SPIT SCH ×2 (09:32→21:07)
[2017-05-02] MEDS ORDERED: TUBERCULIN SKIN TEST 0.1 ML SYRINGE INTRADERM ONE (15:30)
[2017-05-02] MEDS: INSULIN GLARGINE 100 UNIT/ML SUBCUT SCH (21:06)
[2017-05-02] MEDS: CARBIDOPA/LEVODOPA CR 25-100 MG TABLET PO SCH (21:06)
[2017-05-03] MEDS: ALBUTEROL/IPRATROPIUM 3 ML NEB RESP TX SCH ×4 (01:52→20:48)
[2017-05-03] MEDS: INSULIN REGULAR 100 UNIT/ML SUBCUT SCH ×4 (01:54→18:17)
[2017-05-03] MEDS: ACETAMINOPHEN 325 MG TABLET PO PRN (03:34)
[2017-05-03] MEDS: GLIMEPIRIDE 4 MG TABLET PO SCH (08:29)
[2017-05-03] MEDS: ENOXAPARIN 40 MG/0.4 ML SYRINGE SUBCUT SCH (08:29)
[2017-05-03] MEDS: CITALOPRAM 40 MG TABLET PO SCH (08:29)
[2017-05-03] MEDS: LEVOFLOXACIN 500 MG TABLET PO SCH (08:29)
[2017-05-03] MEDS: CHLORHEXIDINE 0.12% ORAL RINSE 60 ML BOTTLE SWISH/SPIT SCH ×2 (08:30→21:54)
[2017-05-03] MEDS: amLODIPine 10 MG TABLET PO SCH (08:30)
[2017-05-03] MEDS: NYSTATIN 500,000 UNIT/5 ML UDCUP SWISH/SWAL SCH ×4 (08:30→21:55)
[2017-05-03] MEDS: predniSONE 20 MG TABLET PO SCH (08:31)
[2017-05-03] MEDS: PANTOPRAZOLE 40 MG TABLET PO SCH (08:31)
[2017-05-03] MEDS: ALLOPURINOL 300 MG TABLET PO SCH (08:32)
[2017-05-03] MEDS: FUROSEMIDE 40 MG/4 ML VIAL IV SCH (08:33)
[2017-05-03] MEDS ORDERED: ONDANSETRON 4 MG/2 ML VIAL IV PRN (12:47)
[2017-05-03 14:09] LABS: Basophils # 0.1 10*3/uL (0.0-0.2); Basophils % 0.4 % (0.0-0.8); Eosinophils % 0.1 % (0.00-10.9); Hematocrit 46.1 VOL% (35.7-47.0); Hemoglobin 15.1 GM/DL (12.0-16.0); Immature Granulocytes % 3.4 %; Immature Granulocytes Absolute 0.65 #; Lymphocytes # 1.2 10*3/uL (1.4-4.0); Lymphocytes % 6.2 % (21.3-54.2); Mean Corpuscular HGB Conc 32.8 GM/DL (32-36); Mean Corpuscular Hemoglobin 27 PG (27-34); Mean Platelet Volume 9.4 FL (9.6-12.0); Monocytes # 0.8 10*3/uL (0.11-0.8); Monocytes % 4.4 % (1.7-12.7); Neutrophils # 16.3 10*3/uL (1.4-7.4); Neutrophils % 85.5 % (38.7-73.9); Platelet Count 339 T/CUMM (130-400); Red Blood Count 5.69 MC/CUMM (3.8-5.5); Red Cell Distribution Width 16.2 % (9.3-17.3); White Blood Count 19.1 T/CUMM (4-12)
[2017-05-03 15:40] LABS: Poikilocytosis Slight
[2017-05-03 15:41] LABS: Ovalocytes Few; Platelet Estimate Normal; Tear Drop Cells Few
[2017-05-03] MEDS: CARBIDOPA/LEVODOPA CR 25-100 MG TABLET PO SCH (21:57)
[2017-05-03] MEDS: INSULIN GLARGINE 100 UNIT/ML SUBCUT SCH (21:57)
[2017-05-03] MEDS: diphenhydrAMINE CAP 50 MG CAPSULE PO PRN (22:00)
[2017-05-04] MEDS: INSULIN REGULAR 100 UNIT/ML SUBCUT SCH ×4 (01:08→18:47)
[2017-05-04] MEDS: ALBUTEROL/IPRATROPIUM 3 ML NEB RESP TX SCH ×4 (02:34→19:52)
[2017-05-04] MEDS: GLIMEPIRIDE 4 MG TABLET PO SCH (09:30)
[2017-05-04] MEDS: ENOXAPARIN 40 MG/0.4 ML SYRINGE SUBCUT SCH (09:30)
[2017-05-04] MEDS: amLODIPine 10 MG TABLET PO SCH (09:30)
[2017-05-04] MEDS: predniSONE 20 MG TABLET PO SCH (09:30)
[2017-05-04] MEDS: ALLOPURINOL 300 MG TABLET PO SCH (09:30)
[2017-05-04] MEDS: FUROSEMIDE 40 MG/4 ML VIAL IV SCH (09:31)
[2017-05-04] MEDS: PANTOPRAZOLE 40 MG TABLET PO SCH (09:31)
[2017-05-04] MEDS: CITALOPRAM 40 MG TABLET PO SCH (09:33)
[2017-05-04] MEDS: NYSTATIN 500,000 UNIT/5 ML UDCUP SWISH/SWAL SCH ×4 (11:56→21:33)
[2017-05-04] MEDS: CHLORHEXIDINE 0.12% ORAL RINSE 60 ML BOTTLE SWISH/SPIT SCH ×2 (16:12→21:32)
[2017-05-04] MEDS: CARBIDOPA/LEVODOPA CR 25-100 MG TABLET PO SCH (21:30)
[2017-05-04] MEDS: INSULIN GLARGINE 100 UNIT/ML SUBCUT SCH (21:33)
[2017-05-05] MEDS: ALBUTEROL/IPRATROPIUM 3 ML NEB RESP TX SCH ×4 (00:02→19:15)
[2017-05-05] MEDS: INSULIN REGULAR 100 UNIT/ML SUBCUT SCH ×4 (00:55→17:20)
[2017-05-05] MEDS: GLIMEPIRIDE 4 MG TABLET PO SCH (09:29)
[2017-05-05] MEDS: PANTOPRAZOLE 40 MG TABLET PO SCH (09:30)
[2017-05-05] MEDS: CITALOPRAM 40 MG TABLET PO SCH (09:30)
[2017-05-05] MEDS: amLODIPine 10 MG TABLET PO SCH (09:31)
[2017-05-05] MEDS: predniSONE 20 MG TABLET PO SCH (09:31)
[2017-05-05] MEDS: ALLOPURINOL 300 MG TABLET PO SCH (09:32)
[2017-05-05] MEDS: NYSTATIN 500,000 UNIT/5 ML UDCUP SWISH/SWAL SCH ×4 (09:33→21:39)
[2017-05-05] MEDS: ENOXAPARIN 40 MG/0.4 ML SYRINGE SUBCUT SCH (09:34)
[2017-05-05] MEDS: CHLORHEXIDINE 0.12% ORAL RINSE 60 ML BOTTLE SWISH/SPIT SCH ×2 (09:40→21:39)
[2017-05-05] MEDS ORDERED: methylPREDNISolone 4 MG TABLET PO SCH (13:30)
[2017-05-05] MEDS: valACYclovir 500 MG TABLET PO SCH ×2 (17:17→21:37)
[2017-05-05] MEDS: methylPREDNISolone 4 MG TABLET PO SCH ×2 (17:18→21:46)
[2017-05-05] MEDS: FUROSEMIDE 40 MG/4 ML VIAL IV SCH (17:21)
[2017-05-05] MEDS: CARBIDOPA/LEVODOPA CR 25-100 MG TABLET PO SCH (21:37)
[2017-05-05] MEDS: INSULIN GLARGINE 100 UNIT/ML SUBCUT SCH (21:41)
[2017-05-06] MEDS: ALBUTEROL/IPRATROPIUM 3 ML NEB RESP TX SCH ×4 (00:12→20:38)
[2017-05-06] MEDS: INSULIN REGULAR 100 UNIT/ML SUBCUT SCH ×4 (00:36→18:14)
[2017-05-06] MEDS: CITALOPRAM 40 MG TABLET PO SCH (09:40)
[2017-05-06] MEDS: ALLOPURINOL 300 MG TABLET PO SCH (09:40)
[2017-05-06] MEDS: NYSTATIN 500,000 UNIT/5 ML UDCUP SWISH/SWAL SCH ×4 (09:40→21:13)
[2017-05-06] MEDS: GLIMEPIRIDE 4 MG TABLET PO SCH (09:40)
[2017-05-06] MEDS: amLODIPine 10 MG TABLET PO SCH (09:40)
[2017-05-06] MEDS: valACYclovir 500 MG TABLET PO SCH ×2 (09:40→21:13)
[2017-05-06] MEDS: methylPREDNISolone 4 MG TABLET PO SCH ×4 (09:40→21:12)
[2017-05-06] MEDS: PANTOPRAZOLE 40 MG TABLET PO SCH (09:40)
[2017-05-06] MEDS: ENOXAPARIN 40 MG/0.4 ML SYRINGE SUBCUT SCH (09:40)
[2017-05-06] MEDS: FUROSEMIDE 40 MG/4 ML VIAL IV SCH (09:41)
[2017-05-06] MEDS: CHLORHEXIDINE 0.12% ORAL RINSE 60 ML BOTTLE SWISH/SPIT SCH ×2 (09:51→21:16)
[2017-05-06] MEDS ORDERED: INSULIN GLARGINE 100 UNIT/ML SUBCUT SCH (21:00)
[2017-05-06] MEDS: CARBIDOPA/LEVODOPA CR 25-100 MG TABLET PO SCH (21:12)
[2017-05-07] MEDS: INSULIN REGULAR 100 UNIT/ML SUBCUT SCH ×3 (01:19→14:49)
[2017-05-07] MEDS: ALBUTEROL/IPRATROPIUM 3 ML NEB RESP TX SCH ×2 (02:30→07:25)
[2017-05-07 07:02] LABS: Basophils # 0.1 10*3/uL (0.0-0.2); Basophils % 0.3 % (0.0-0.8); Eosinophils % 0.2 % (0.00-10.9); Hemoglobin 13.7 GM/DL (12.0-16.0); Immature Granulocytes % 1.5 %; Immature Granulocytes Absolute 0.27 #; Lymphocytes # 1.1 10*3/uL (1.4-4.0); Lymphocytes % 5.8 % (21.3-54.2); Mean Corpuscular HGB Conc 35.1 GM/DL (32-36); Mean Corpuscular Hemoglobin 28 PG (27-34); Mean Corpuscular Volume 78.9 FL (87-102); Mean Platelet Volume 9.3 FL (9.6-12.0); Monocytes # 1.2 10*3/uL (0.11-0.8); Monocytes % 6.5 % (1.7-12.7); Neutrophils # 15.5 10*3/uL (1.4-7.4); Neutrophils % 85.7 % (38.7-73.9); Platelet Count 301 T/CUMM (130-400); Red Blood Count 4.94 MC/CUMM (3.8-5.5); Red Cell Distribution Width 15.4 % (9.3-17.3); White Blood Count 18.1 T/CUMM (4-12)
[2017-05-07 07:38] LABS: Calcium 8.9 MG/DL (8.5-10.1); Osmolality,Calculated 278.2 MOS/KG (273-304); Potassium 3.6 MMOL/L (3.5-5.1)
[2017-05-07] MEDS: CITALOPRAM 40 MG TABLET PO SCH (09:48)
[2017-05-07] MEDS: ALLOPURINOL 300 MG TABLET PO SCH (09:48)
[2017-05-07] MEDS: NYSTATIN 500,000 UNIT/5 ML UDCUP SWISH/SWAL SCH ×2 (09:48→14:50)
[2017-05-07] MEDS: GLIMEPIRIDE 4 MG TABLET PO SCH (09:48)
[2017-05-07] MEDS: PANTOPRAZOLE 40 MG TABLET PO SCH (09:48)
[2017-05-07] MEDS: ENOXAPARIN 40 MG/0.4 ML SYRINGE SUBCUT SCH (09:48)
[2017-05-07] MEDS: FUROSEMIDE 40 MG/4 ML VIAL IV SCH (09:49)
[2017-05-07] MEDS: valACYclovir 500 MG TABLET PO SCH (09:49)
[2017-05-07] MEDS: amLODIPine 10 MG TABLET PO SCH (09:49)
[2017-05-07] MEDS: methylPREDNISolone 4 MG TABLET PO SCH ×2 (09:52→14:49)
[2017-05-07] MEDS: CHLORHEXIDINE 0.12% ORAL RINSE 60 ML BOTTLE SWISH/SPIT SCH (09:53)
[2017-05-07 11:35] VITALS: BP 131/70
== END 2017-05-07 14:46 | disposition swing bed (61) | DRG 870 ==
LOC: N.ED 05:29 → N.EDINP 08:58 → SUATTDRO 08:58 → SUPCPDRO 08:58 → N.EDINP 14:50 → N.ICU 15:08 → N.2E 04-30 14:07 → N.ICU 04-30 14:19 → N.2E 04-30 16:13
PROVIDERS: ADMIT Internal Medicine; ATTEND Internal Medicine Infectious Disease